=== PATIENT | male | born 1955 | race Caucasian/White ===

== ENCOUNTER 2020-07-22 12:31 | Emergency (ER) | payer OTHER, MEDICARE, SELFPAY ==
[2020-07-22 12:38] VITALS: BP 156/75; PULSE 71; RESP 20; TEMP 36.7; O2SAT 100
--- NOTE | 2020-07-22 12:38 | ED.GENADULT ---
HPI - General Adult General Chief complaint: Abdominal Pain Stated complaint: pressure/burning in stomach/bloating Source: patient and RN notes reviewed Limitations: no limitations History of Present Illness HPI narrative: The obese patient--a non-smoker/rare drinker, with history of several meds--presents with epigastric pain. Patient has a couple day recurrence, of couple year history, of epigastric discomfort. Patient states he has a history of GERD, HTN, HLD, AODM, DJD and no CAD. This is based upon prior EGD, normal past [place]ies[place], normal GB ultrasound (2015), and a 'good'stress test years (2010). He states he is compliant on Pepcid, omeprazole, and routine Naprosyn [for cervical DJD]. He complains of hours-long episodes of epigastric burning , gassy discomfort --that radiates up and down, slightly worse positionally when supine, like prior heartburn, and unrelated to exertion. No fever, known pancreatic/GB disease, V/D/dehydration, manager universal/darker stool changes, precordial CP [it's all midline], cough, radiation, S OB. Patient advised to suspend NSAID's, go to the hospital -which he declines. Related Data Home Medications Medication Instructions Recorded Confirmed calcium carbonate 600 mg calcium 600 mg PO DAILY 07/19/19 07/22/20 (1,500 mg) tablet ginseng 100 mg capsule 100 mg PO DAILY 07/19/19 07/22/20 ipratropium bromide 0.03 % nasal 2 spray NASAL BID 07/19/19 07/22/20 spray krill 1,000 mg-omega-3 170 mg-dha 1 cap PO DAILY cap 07/19/19 07/22/20 50 mg-epa 80 em-[id number]-lpals capsule montelukast 10 mg tablet 10 mg PO DAILY 07/19/19 07/22/20 saw palmetto 160 mg capsule 160 mg PO DAILY cap 07/19/19 07/22/20 omeprazole 20 mg capsule,delayed 40 mg PO DAILY cap 07/20/19 07/22/20 release naproxen sodium 220 mg capsule 220 mg PO DAILY PRN cap 01/31/20 07/22/20 amlodipine 5 mg PO DAILY 07/22/20 07/22/20 atorvastatin 20 mg PO DAILY 07/22/20 07/22/20 famotidine 20 mg PO DAILY 07/22/20 07/22/20 Allergies Allergy/AdvReac Type Severity Reaction Status Date / Time Penicillins Allergy Unknown Unknown Verified 07/22/20 13:28 Review of Systems Review of Systems: Narrative: General/Constitutional: No weight loss,fever Eyes: N0: Redness,discharge Ears/Nose/Throat: No: Epistaxis,ear discharge Respiratory: Denies: Hemoptysis Gastrointestinal: No Vomiting, Bleeding-rectal Skin: No Lumps, eruption Neurologic: No Focal Weakness,Sz Hematologic: Denies: Petechiae/Purpura Psychiatric: No: Suicida ideationl All Other Systems: Reviewed and Negative [facility] Family History Family History (Updated 12/08/18 @ 15:31 by DOCTOR UNKNOWN) Sibling Family history of suicide, Onset Age: 25 Patient's brother is Father Cerebrovascular accident Patient's father is Mother Family history of chronic obstructive pulmonary disease Patient's mother is Other Diabetes mellitus Family history of arthritis Family history of cardiovascular disease Hypertension Social History Social History Smoking status: Never smoker Alcohol intake: current Comments At time of signature, agree with nursing past medical, surgical, social and family history. There is no relevant family history pertinent to the presenting complaint Exam Narrative: Exam Narrative: General Appearance: obese/ Well appearing, Conjunctiva clear Nose: Normal nose Mouth/Throat: Normal appearing, Normal lips Supple Respiratory: Airway patent, No respiratory distress Cardiovascular: RRR Abdomen: Soft, Non-tender, No massess, No organomegaly (no rebound/ surgical signs), nl sounds Musculoskeletal: Full ROM Skin: Warm, Dry Neurological: A&O x3, Normal affect Course Course Emergency Course: EKG:Normal sinus rhythm at rate 70, LAD -60 degrees , normal QTC 0.419, normal PA interval, nonspecific ST-T changes Vital Signs Vital signs: Vital Signs Temperature 98.1 F 07/22/20 12:38 Pulse
--- NOTE | 2020-07-22 13:10 | ECG_ITS ---
Measurements Intervals [place] Rate: 71 P: 51 [place]: 170 QRS: -58 QRSD: 108 T: 57 QT: 396 QTc: 433 Interpretive Statements SINUS RHYTHM LEFT AXIS DEVIATION INCOMPLETE RIGHT BUNDLE BRANCH BLOCK DELAYED PRECORDIAL R/S TRANSITION BORDERLINE ECG Electronically Signed On 07-22-2020 14:11:49 COMMUNICATION MANAGER by Kyler Cuellar D.O.
== END 2020-07-22 13:42 | disposition home or self-care (01) ==
PROVIDERS: Emergency Provider Emergency Medicine; PCP Internal Medicine
DX: R10.13 Epigastric pain (principal); K21.9 Gastro-esophageal reflux disease without esophagitis; I10 Essential (primary) hypertension; E78.5 Hyperlipidemia, unspecified; I45.10 Unspecified right bundle-branch block; M47.812 Spondylosis without myelopathy or radiculopathy, cervical region
CPT/HCPCS: 93005; 99213; G0463

== ENCOUNTER 2020-08-06 10:02 | Outpatient (CLI) | payer OTHER, SELFPAY ==
--- NOTE | ~2020-08-06 | XR_ITS ---
EXAMINATION: XR chest 2V EXAM DATE: 08/06/2020 10:16 INDICATION: R94.31 - Abnormal electrocardiogram. TECHNIQUE: Frontal and lateral projections of the chest obtained and reviewed. Comparison is made to prior examination from 06/01/2017. FINDINGS: The lungs are clear. There are no pleural effusions. The cardiomediastinal silhouette is within normal limits. There is no pneumothorax suspected. The bones and soft tissues are unremarkab le. IMPRESSION: No acute cardiopulmonary findings. Reviewed, dictated and finalized at location B. CHLORIDE OPERATOR
== END 2020-08-06 10:03 | disposition home or self-care (01) ==
PROVIDERS: PCP Internal Medicine; Visit Provider Internal Medicine
DX: R94.31 Abnormal electrocardiogram [ECG] [EKG] (principal)
CPT/HCPCS: 71046

== ENCOUNTER 2020-08-13 09:04 | Outpatient (CLI) | payer OTHER, MEDICARE, SELFPAY ==
--- NOTE | ~2020-08-13 | US_ITS ---
EXAMINATION: US abdomen complete EXAM DATE: 08/13/2020 10:36 INDICATION: Right upper quadrant pain. TECHNIQUE: Multiple grayscale and Doppler images of the complete abdomen were obtained (by a technolo gist who performed the scan) and subsequently reviewed. Comparison is made to prior examination from 05/07/2016. FINDINGS: The abdominal aorta is normal in caliber. Visualized portion IVC is patent. The pancreatic head a nd body are normal in appearance. The pancreatic tail is not visualized. Mildly echogenic liver parenchyma, hepatic steatosis. There are no focal liver lesions identified. There is no evidence of intrahepatic biliary duct dilation. Portal venous flow was seen in the hepa topedal, normal direction and has normal Doppler waveform. Common bile duct measures 2 mm, which is normal. The gallbladder wall is normal in thickness, with ex pected amount of distention. No sonographic evidence of pericholecystic fluid. There is no cholelit hiases. Technologist performing exam reports patient did not demonstrate sonographic Mata's sign. Please note that this sign is less reliable in patients who have received pain medication. Right kidney: There is normal contour and echogenicity. It measures 11.9 x 5.5 x 5.7 centimeters. There are no focal renal lesions identified. There is no hydronephrosis. Left kidney: There is normal contour and echogenicity. It measures 11.9 x 4.7 x 6.4 centimeters. T here are no focal renal lesions identified. There is no hydronephrosis. The spleen measures 11.5 centimeters and is morphologically normal. IMPRESSION: 1. Hepatic steatosis. Reviewed, dictated and finalized at location B. UER MAKER IMPRESSION: 1. Hepatic steatosis.
== END 2020-08-13 09:05 | disposition home or self-care (01) ==
PROVIDERS: PCP Internal Medicine; Visit Provider Internal Medicine
DX: R10.11 Right upper quadrant pain (principal); K76.0 Fatty (change of) liver, not elsewhere classified
CPT/HCPCS: 76700

== ENCOUNTER 2020-09-16 13:51 | Outpatient (CLI) | payer OTHER, MEDICARE, SELFPAY ==
--- NOTE | 2020-09-17 13:31 | WPDPFTINT ---
PFT Interpretation This is a pulmonary function test with pre and post-bronchodilator spirometry, plethysmography and diffusing capacity. The test was performed and results interpreted in accordance with the 2019 and 2005 ATS/ERS Task Force guidelines respectively using the Hemal/George reference equations. Findings: Spirometry: The contour of the inspiratory and expiratory flow tracing are normal. The pre bronchodilator FVC is 4.17 L, 80% predicted. The pre bronchodilator FEV1 is 3.26 L, 92% predicted. The FEV1: FVC ratio 78%. The post bronchodilator FVC is 4.36 L, representing a 4% increase. The post bronchodilator FEV1 is 3.41 L, representing a 5% increase. Plethysmography the total lung capacity is 8.84 L, 114% predicted. Functional residual capacity is 4.72 L, 123% predicted. The residual volume is 4.09 L, 146% predicted. Diffusing capacity the absolute diffusion capacity is 21.0, 69% predicted. The diffusing capacity corrected for alveolar volume is 4.67, 126% predicted. Impression: The spirometry is normal without evidence of an obstructive abnormality. There is no significant improvement after inhaling a single dose of albuterol. The functional residual capacity and residual volume are increased with a normal total lung capacity. This is an abnormal but nonspecific lung volume pattern. The absolute diffusing capacity is mildly decreased but is elevated when corrected for alveolar volume. There are no prior studies for comparison
== END 2020-09-16 13:52 | disposition home or self-care (01) ==
PROVIDERS: PCP Internal Medicine; Visit Provider Internal Medicine
DX: R94.31 Abnormal electrocardiogram [ECG] [EKG] (principal)
CPT/HCPCS: 94060; 94726; 94729

== ENCOUNTER 2021-04-02 15:38 | Emergency (ER) | payer OTHER, SELFPAY ==
[2021-04-02 15:44] VITALS: BP 173/91; PULSE 85; RESP 16; TEMP 36.6; O2SAT 97
--- NOTE | 2021-04-02 15:49 | ED.BACK ---
HPI - Back Pain/Injury General Chief Complaint: Back Pain/Injury Stated Complaint: BACK PAIN/LEG PAIN Time Seen by Provider: 04/02/21 15:49 Source: patient and RN notes reviewed Mode of arrival: ambulatory Limitations: no limitations History of Present Illness HPI Narrative: 65-year-old male presents to the [facility] with complaints of lower back pain radiating into his legs for over 1 week. States he has taken 1 naproxen in the last week to try to help with the pain. States when he got up this morning the pain was so bad that he had trouble standing and when he was able to stand had to sit right back down on his bed. Denies any trauma. No pushing pulling or heavy lifting recently. Denies any abdominal pain or chest pain. No loss or retention of bowel or bladder. States he has had chronic medical issues and has Skelaxin at home however has not taken anything for his back pain. Related Data Home Medications Medication Instructions Recorded Confirmed calcium carbonate 600 mg calcium 600 mg PO DAILY 07/19/19 02/28/21 (1,500 mg) tablet ipratropium bromide 21 mcg (0.03 2 spray NASAL BID 07/19/19 02/28/21 %) nasal spray krill 1,000 mg-omega-3 170 mg-dha 1 cap PO DAILY cap 07/19/19 02/28/21 50 mg-epa 80 mb-xrcwxe-ataon capsule montelukast 10 mg tablet 10 mg PO DAILY 07/19/19 02/28/21 saw palmetto 160 mg capsule 160 mg PO DAILY cap 07/19/19 02/28/21 omeprazole 20 mg capsule,delayed 40 mg PO DAILY cap 07/20/19 02/28/21 release naproxen sodium 220 mg capsule 220 mg PO DAILY PRN cap 01/31/20 02/28/21 famotidine 20 mg PO DAILY 07/22/20 02/28/21 Allergies Allergy/AdvReac Type Severity Reaction Status Date / Time Penicillins Allergy Mild pt does Verified 02/28/21 15:01 not recall Review of Systems Review of Systems: All systems reviewed & are unremarkable except as noted in HPI and below Constitutional: Constitutional: Reports no additional constitutional complaints, Denies chills and Denies fever(s) ENT: Reports system reviewed and no additional complaints, except as documented Cardiovascular: Cardiovascular: Reports no additional cardiovascular complaints Respiratory: Respiratory: Reports no additional respiratory complaints Gastrointestinal: Gastrointestinal: Reports no additional gastrointestinal complaints, Denies abdominal pain, Denies diarrhea, Denies nausea and Denies vomiting Genitourinary: Genitourinary: Reports no additional male genitourinary complaints and Denies urinary incontinence Musculoskeletal: Musculoskeletal: Reports as per HPI and Reports back pain (Lumbar) Integumentary/Breasts: Skin/Breast: Reports system reviewed and no additional complaints, except as docu Neurologic: Reports system reviewed and no additional complaints, except as documented, Denies headache(s), Denies focal weakness, Denies numbness and Denies weakness Psychiatric: Psychiatric: Reports no additional psychiatric complaints Allergic/Immunologic: Allergic/Immunologic: Reports no additional allergic/immunologic complaints [facility] Past Medical History Medical History (Updated 04/02/21 @ 19:45 by Salome Olvera) Benign essential hypertension Gastro-esophageal reflux disease without esophagitis History of prediabetes Mixed hyperlipidemia Family History Family History Sibling Family history of suicide, Onset Age: 25 Patient's brother is Father Cerebrovascular accident Patient's father is Mother Family history of chronic obstructive pulmonary disease Patient's mother is Other Diabetes mellitus Family history of arthritis Family history of cardiovascular disease Hypertension Social History Social History Smoking status: Never smoker Second hand tobacco smoke exposure: Yes Alcohol intake: current Alcohol use details: Social Commen
== END 2021-04-02 16:07 | disposition home or self-care (01) ==
PROVIDERS: Emergency Provider Nurse Practitioner; PCP Internal Medicine
DX: I10 Essential (primary) hypertension (principal); K21.9 Gastro-esophageal reflux disease without esophagitis; R73.03 Prediabetes; E78.2 Mixed hyperlipidemia
CPT/HCPCS: 99213; G0463

== ENCOUNTER 2021-04-28 00:57 | Day surgery (SDC) | payer OTHER, SELFPAY ==
[2021-04-18 13:47] VITALS: BMI 34.9
--- NOTE | 2021-04-25 14:58 | PM.HPGS ---
History of Present Illness History of Present Illness Consent: Risks, benefits, and alternatives have been discussed and questions answered. Patient agrees to proceed with procedure. Chief complaint: hx of colon polyps Narrative: Osvaldo Zimmerman is a 65 year old male referred for colon cancer screening Review of Systems Review of Systems: All systems reviewed & are unremarkable except as noted in HPI and below PMFSH Past Medical History Medical History Benign essential hypertension Diabetes Gastro-esophageal reflux disease without esophagitis History of prediabetes Mixed hyperlipidemia Numbness in both hands Obesity MARCELLA on CPAP Family History Family History Sibling Family history of suicide, Onset Age: 25 Patient's brother is Father Cerebrovascular accident Patient's father is Mother Family history of chronic obstructive pulmonary disease Patient's mother is Other Diabetes mellitus Family history of arthritis Family history of cardiovascular disease Hypertension Social History Social History Smoking status: Never smoker Second hand tobacco smoke exposure: Yes Alcohol intake: never Alcohol use details: Social Substance use: never Substance use type: does not use Living arrangements: with family Spiritual care concerns: No Meds Home Medications and Allergies Home Medications Medication Instructions Recorded Confirmed Type calcium carbonate 600 mg calcium 600 mg PO DAILY 07/19/19 04/18/21 History (1,500 mg) tablet ipratropium bromide 21 mcg (0.03 2 spray NASAL BID 07/19/19 04/18/21 History %) nasal spray krill 1,000 mg-omega-3 170 mg-dha 1 cap PO DAILY cap 07/19/19 04/18/21 History 50 mg-epa 80 dm-phgxug-tofdy capsule montelukast 10 mg tablet 10 mg PO DAILY 07/19/19 04/18/21 History saw palmetto 160 mg capsule 160 mg PO DAILY cap 07/19/19 04/18/21 History omeprazole 20 mg capsule,delayed 40 mg PO DAILY cap 07/20/19 04/18/21 History release naproxen sodium 220 mg capsule 220 mg PO DAILY cap 01/31/20 04/18/21 History famotidine 20 mg PO DAILY 07/22/20 04/18/21 History metformin 500 mg tablet 500 mg PO DAILY #90 tablet 12/17/20 04/18/21 Rx atorvastatin 20 mg tablet See Rx Instructions .ROUTE 01/20/21 04/18/21 Rx .COMPLEX #90 tablet amlodipine 5 mg tablet See Rx Instructions .ROUTE 02/24/21 04/18/21 Rx .COMPLEX #14 tablet fluticasone propionate 50 2 spray INTRANASAL DAILY #16 g 02/28/21 04/18/21 Rx mcg/actuation nasal spray,suspension fexofenadine 180 mg PO DAILY 04/18/21 04/18/21 History metaxalone See Rx Instructions .ROUTE 04/18/21 04/18/21 History .COMPLEX PRN Allergies Allergy/AdvReac Type Severity Reaction Status Date / Time Penicillins Allergy Mild pt does Verified 04/28/21 09:06 not recall Exam Resp: Auscultation: clear to auscultation bilaterally Cardio: Rate: regular rate Rhythm: regular rhythm GI: GI Palp: Yes Soft to palpation and No Tenderness to palpation present (GI) Assessment and Plan Assessment and plan (1) Colon cancer screening: Code(s): Z12.11 - Encounter for screening for malignant neoplasm of colon Status: Acute Assessment and Plan: Colonoscopy with possible biopsy or polypectomy or cautery or injection of substances.
--- NOTE | 2021-04-28 07:41 | WPDANESEPPF ---
Anes - Initial Pre Proc Eval Procedure: Operation Date: 04/28/21 09:30 Proposed Procedures p Screening Colonoscopy - Reji Adam MD Date/Time: 04/28/21 07:41 Surgeon: Reji Adam MD Pre Op Diagnosis: hx of colon polyps Patient Data Age: 65 Gender: M Height: 1.91 m Weight: 127 kg Allergies Allergy/AdvReac Type Severity Reaction Status Date / Time Penicillins Allergy Mild pt does Verified 04/28/21 08:46 not recall Home Medications Medication Instructions Recorded Confirmed Type calcium carbonate 600 mg calcium 600 mg PO DAILY 07/19/19 04/18/21 History (1,500 mg) tablet ipratropium bromide 21 mcg (0.03 2 spray NASAL BID 07/19/19 04/18/21 History %) nasal spray krill 1,000 mg-omega-3 170 mg-dha 1 cap PO DAILY cap 07/19/19 04/18/21 History 50 mg-epa 80 zs-tmdnyj-icbuz capsule montelukast 10 mg tablet 10 mg PO DAILY 07/19/19 04/18/21 History saw palmetto 160 mg capsule 160 mg PO DAILY cap 07/19/19 04/18/21 History omeprazole 20 mg capsule,delayed 40 mg PO DAILY cap 07/20/19 04/18/21 History release naproxen sodium 220 mg capsule 220 mg PO DAILY cap 01/31/20 04/18/21 History famotidine 20 mg PO DAILY 07/22/20 04/18/21 History metformin 500 mg tablet 500 mg PO DAILY #90 tablet 12/17/20 04/18/21 Rx atorvastatin 20 mg tablet See Rx Instructions .ROUTE 01/20/21 04/18/21 Rx .COMPLEX #90 tablet amlodipine 5 mg tablet See Rx Instructions .ROUTE 02/24/21 04/18/21 Rx .COMPLEX #14 tablet fluticasone propionate 50 2 spray INTRANASAL DAILY #16 g 02/28/21 04/18/21 Rx mcg/actuation nasal spray,suspension fexofenadine 180 mg PO DAILY 04/18/21 04/18/21 History metaxalone See Rx Instructions .ROUTE 04/18/21 04/18/21 History .COMPLEX PRN Patient hx anesthesia problems: none Family hx anesthesia problems: none PMFSH Past Medical History Medical History (Updated 04/28/21 @ 07:42 by Carlo Berumen MD) Benign essential hypertension Diabetes Gastro-esophageal reflux disease without esophagitis History of prediabetes Mixed hyperlipidemia Numbness in both hands Obesity MARCELLA on CPAP Family History Family History Sibling Family history of suicide, Onset Age: 25 Patient's brother is Father Cerebrovascular accident Patient's father is Mother Family history of chronic obstructive pulmonary disease Patient's mother is Other Diabetes mellitus Family history of arthritis Family history of cardiovascular disease Hypertension Social History Social History Smoking status: Never smoker Second hand tobacco smoke exposure: Yes Alcohol intake: never Alcohol use details: Social Substance use: never Substance use type: does not use Living arrangements: with family Spiritual care concerns: No Anes - Eval Final PreProcedure Day of Procedure 04/28/21 07:41 Patient weight: obese Heart: regular rate and rhythm Lungs: clear to auscultation and normal air movement Airway: Mallampati scale class II Neurological: alert and oriented Last oral intake: >/= 8 hours ASA classification: III Emergent: no Anesthetic plan: proceed Anesthesia type and monitoring: general GIVS Informed Consent: The patient's anesthetic plan and its attendant risks and benefits were discussed with the patient/family/POA. Questions were solicited and answers provided to the satisfaction of the patient/family/POA.
[2021-04-28 08:49] VITALS: BP 123/80; PULSE 72; RESP 18; TEMP 36.3; O2SAT 98; BMI 33.9
[2021-04-28] MEDS: LACTATED RINGERS 1,000 ML 150 ML IV CONT (08:54)
[2021-04-28 09:03] LABS: Glucose Point of Care 141 mg/dl (65-105)
[2021-04-28 09:37] VITALS: BP 100/63; PULSE 67; RESP 20; O2SAT 97
[2021-04-28 09:47] VITALS: BP 94/66; PULSE 62; RESP 18; O2SAT 99
[2021-04-28 09:57] VITALS: BP 129/79; PULSE 56; RESP 20; O2SAT 99
== END 2021-04-28 10:06 | disposition home or self-care (01) ==
PROVIDERS: PCP Internal Medicine; Visit Provider Internal Medicine Gastroenterology
PROC: 0DJD8ZZ Inspection of Lower Intestinal Tract, Via Natural or Artificial Opening Endoscopic (ICD-10-PCS; CPT 45378; principal; 2021-04-28 09:30)
DX: Z12.11 Encounter for screening for malignant neoplasm of colon (principal); Z86.010 Personal history of colon polyps; K63.5 Polyp of colon; Z79.84 Long term (current) use of oral hypoglycemic drugs; I10 Essential (primary) hypertension; E11.9 Type 2 diabetes mellitus without complications; E78.2 Mixed hyperlipidemia; G47.33 Obstructive sleep apnea (adult) (pediatric); K21.9 Gastro-esophageal reflux disease without esophagitis; E66.9 Obesity, unspecified; Z68.33 Body mass index [BMI] 33.0-33.9, adult
CPT/HCPCS: 45380; 82948; 88305; J2704; J7120

== ENCOUNTER 2021-05-20 09:40 | Outpatient (CLI) | payer OTHER, SELFPAY ==
--- NOTE | ~2021-05-20 | XR_ITS ---
XR lumbar spine 2-3V DATE: 05/20/2021 10:01 INDICATION: Low back pain TECHNIQUE: AP, lateral views COMPARISON: 06/17/2006 MRI lumbar spine 03/03/2004 lumbar spine FINDINGS: There is interval degenerative change since 03/03/2004, including moderate degenerative disc disease at L1-2, L2-3, L3-4. There is mild degenerative disc disease at L4-5 and L5-S1. The lumbar pedicles are intact. No fracture or bone destruction or spondylolisthesis. The sacroiliac joints are intact. IMPRESSION: Multilevel degenerative disc disease Reviewed, dictated and finalized at location A.
== END 2021-05-20 09:41 | disposition home or self-care (01) ==
PROVIDERS: PCP Internal Medicine; Visit Provider Nurse Practitioner
DX: M47.817 Spondylosis without myelopathy or radiculopathy, lumbosacral region (principal)
CPT/HCPCS: 72100

== ENCOUNTER → 2021-08-29 09:17 | Outpatient (CLI) | payer OTHER, SELFPAY ==
[2021-08-30 18:18] LABS: SARS-CoV-2 RNA PCR Negative
== END ==
PROVIDERS: PCP Internal Medicine; Visit Provider Internal Medicine
DX: R09.89 Other specified symptoms and signs involving the circulatory and respiratory systems (principal); Z20.822 Contact with and (suspected) exposure to COVID-19
CPT/HCPCS: C9803; U0003; U0005

== ENCOUNTER 2021-09-09 07:22 | Outpatient (CLI) | payer OTHER, SELFPAY ==
--- NOTE | ~2021-09-09 | US_ITS ---
EXAMINATION: US abdomen limited EXAM DATE: 09/09/2021 08:21 INDICATION: R79.89 - Other specified abnormal findings of blood chemi... Abnormal labs. TECHNIQUE: Multiple grayscale and Doppler images of the abdomen right upper quadrant were obtained (b y a technologist who performed the scan) and subsequently reviewed. Comparison is made to prior exami nation from 08/13/2020. FINDINGS: The pancreatic head and body are normal in appearance. The pancreatic tail is not visualized. There is echogenic liver parenchyma, hepatic steatosis. There are no focal liver lesions identified. Th ere is no evidence of intrahepatic biliary duct dilation. Portal venous flow was seen in the hepatop edal, normal direction and has normal Doppler waveform. No right-sided hydronephrosis. Common bile duct measures 3 mm, which is normal. The gallbladder wall is normal in thickness, with mo derate amount of distention. No sonographic evidence of pericholecystic fluid. Some hyperechoic mobi le debris without discrete cholelithiasis. Technologist performing exam reports patient did not demon strate sonographic Mata's sign. Please note that this sign is less reliable in patients who have r eceived pain medication. IMPRESSION: 1. Small amount of gallbladder debris. 2. Hepatic steatosis. Reviewed, dictated and finalized at location A. PACKER
== END 2021-09-09 07:23 | disposition home or self-care (01) ==
PROVIDERS: PCP Internal Medicine; Visit Provider Internal Medicine
DX: R79.89 Other specified abnormal findings of blood chemistry (principal); K76.0 Fatty (change of) liver, not elsewhere classified
CPT/HCPCS: 76705

== ENCOUNTER 2021-10-13 00:49 | Emergency (ER) | payer OTHER, SELFPAY ==
[2021-10-13] VITALS (17 sets, daily range): BP systolic 114–178; BP diastolic 72–86; PULSE 74–88; RESP 13–30; TEMP 36; O2SAT 96–100
--- NOTE | ~2021-10-13 | XR_ITS ---
EXAMINATION: XR chest 2V 10/13/2021 01:35 INDICATION: Left chest pain PROCEDURE: 2 view chest COMPARISON: 08/06/2020 FINDINGS: The lungs are clear. The cardiomediastinal silhouette is within normal limits. There are no pleural effusions. There is no pneumothorax suspected. IMPRESSION: 1: NO ACUTE CARDIOPULMONARY DISEASE. Reviewed, dictated and finalized at location A. ENSING LEAD
--- NOTE | ~2021-10-13 | CT_ITS ---
EXAMINATION: CT abdomen pelvis w con DATE: 10/13/2021 02:13 INDICATION: Left upper abdominal pain TECHNIQUE: Computed tomography (CT) of the abdomen and pelvis was performed without intravenous contr ast. The dose-length product was 1530.88 mGy-cm. Automated exposure control and iterative reconstruct ion technique were employed. COMPARISON: None. FINDINGS: Lung bases are unremarkable. Heart size normal. No significant pleural or pericardial effus ion. No significant vascular abnormality. No lymphadenopathy. Gallbladder is prominent with possible pericholecystic fluid. The liver, spleen, pancreas, adrenal glands and kidneys are unremarkable. Nonobstructive bowel gas pa ttern. Small fat-containing umbilical hernia. Colonic diverticulosis without evidence for diverticuli tis. No free air or free fluid. Mild lumbar spondylosis. IMPRESSION: 1. Mildly prominent gallbladder with suggestion of pericholecystic fluid/stranding. Consider cholecys titis in the appropriate setting. Consider correlation with nuclear hepatobiliary scan. Reviewed, dictated and finalized at location A. NG HAULER IMPRESSION: 1. Mildly prominent gallbladder with suggestion of pericholecystic fluid/strand ing. Consider cholecystitis in the appropriate setting. Consider correlation wi nuclear hepatobiliary scan.
--- NOTE | 2021-10-13 01:13 | ECG_ITS ---
Measurements Intervals [place] Rate: 85 P: 23 [place]: 124 QRS: -28 QRSD: 98 T: 60 QT: 391 QTc: 466 Interpretive Statements SINUS RHYTHM CANNOT RULE OUT SEPTAL INFARCT, AGE INDETERMINATE ABNORMAL ECG Electronically Signed On 10-13-2021 6:27:10 HAND WELT BUTTER by Kyler Cuellar D.O.
--- NOTE | 2021-10-13 01:15 | ED.GENADULT ---
HPI - General Adult General Chief complaint: Chest Pain Stated complaint: Chest pain Time Seen by Provider: 10/13/21 00:51 Source: patient Mode of arrival: ambulatory Limitations: no limitations History of Present Illness HPI narrative: This is a 66 year old male with history of hypertension and diabetes mellitus who presents for evaluation of left flank pain . He states he was about to get ready for bed when he developed left flank pain. He states this pain radiates to his epigastric and it has been constant. He has tried tums, metaxalone, and peptobismal without any improvement in his pain. He states his pain seems to worsen with laying on his left side. He reports mild sob but denies nausea, vomiting or fever. He also denies hematuria or history of kidney stone. He rates pain as 8/10. He states he had similar pain several weeks ago, and he reports liver problems. Related Data Home Medications Medication Instructions Recorded Confirmed calcium carbonate 600 mg calcium 600 mg PO DAILY 07/19/19 09/05/21 (1,500 mg) tablet ipratropium bromide 21 mcg (0.03 2 spray NASAL BID 07/19/19 09/05/21 %) nasal spray krill 1,000 mg-omega-3 170 mg-dha 1 cap PO DAILY cap 07/19/19 09/05/21 50 mg-epa 80 ps-hjpqgt-jlbri capsule montelukast 10 mg tablet 10 mg PO DAILY 07/19/19 09/05/21 saw palmetto 160 mg capsule 160 mg PO DAILY cap 07/19/19 09/05/21 omeprazole 20 mg capsule,delayed 40 mg PO DAILY cap 07/20/19 09/05/21 release naproxen sodium 220 mg capsule 220 mg PO DAILY cap 01/31/20 09/05/21 famotidine 20 mg PO DAILY 07/22/20 09/05/21 fexofenadine 180 mg PO DAILY 04/18/21 09/05/21 metaxalone See Rx Instructions .ROUTE 04/18/21 09/05/21 .COMPLEX PRN Allergies Allergy/AdvReac Type Severity Reaction Status Date / Time Penicillins Allergy Mild pt does Verified 09/05/21 13:43 not recall Review of Systems Review of Systems: All systems reviewed & are unremarkable except as noted in HPI and below Constitutional: Constitutional: Denies chills and Denies fever(s) Cardiovascular: Cardiovascular: Denies rapid heart rate and Denies radiating jaw, neck or arm pain Respiratory: Respiratory: Denies cough and Reports dyspnea Gastrointestinal: Gastrointestinal: Reports abdominal pain, Denies diarrhea, Reports nausea and Reports vomiting Musculoskeletal: Musculoskeletal: Reports back pain Psychiatric: Psychiatric: Denies anxiety [facility] Past Medical History Medical History Benign essential hypertension Diabetes Gastro-esophageal reflux disease without esophagitis History of prediabetes Mixed hyperlipidemia Numbness in both hands Obesity MARCELLA on CPAP Family History Family History Sibling Family history of suicide, Onset Age: 25 Patient's brother is Father Cerebrovascular accident Patient's father is Mother Family history of chronic obstructive pulmonary disease Patient's mother is Other Diabetes mellitus Family history of arthritis Family history of cardiovascular disease Hypertension Social History Social History Smoking status: Never smoker Second hand tobacco smoke exposure: Yes (when he was younger) Alcohol intake: current Alcohol use details: Social Substance use: never Substance use type: does not use Spiritual care concerns: No Exam Const: General: no acute distress and alert Orientation/consciousness: patient oriented x3 Eyes: EOM: EOMs intact bilaterally Resp: Effort & Inspection: normal respiratory effort, no retractions and no use of accessory muscles Auscultation: clear to auscultation bilaterally Cardio: Rate: regular rate Rhythm: regular rhythm Heart sounds: no murmurs GI: GI Palp: Yes Soft to palpation, Yes Tenderness to palpation
[2021-10-13] MEDS: PANTOPRAZOLE SODIUM IV 40 MG VIAL IV PUSH (01:19)
[2021-10-13 01:23] LABS: Basophils Percent Auto 0.4 % (0.2-1.2); Eosinophils Absolute Auto 0.2 K/mm3 (0-0.3); Eosinophils Percent Auto 2.4 % (0-4.4); Hematocrit 41.8 % (42.0-52.0); Hemoglobin 14.4 g/dL (14.0-18.0); Immature Granulocyte Absolute 0.02 K/mm3 (0.00-0.031); Immature Granulocyte Percent A 0.2 % (0-0.5); Lymphocytes Absolute Auto 3.83 K/mm3 (0.9-3.2); Lymphocytes Percent Auto 38.6 % (18.3-44.2); Mean Corpuscular HGB Conc 34.4 g/dl (32-36); Mean Corpuscular Hemoglobin 33.3 pg (26-34); Mean Corpuscular Volume 96.8 fl (80-100); Mean Platelet Volume 10.4 fl (7.4-10.4); Monocytes Absolute Auto 0.7 K/mm3 (0.1-0.6); Monocytes Percent Auto 6.7 % (2.6-8.5); Neutrophils Absolute Auto 5.1 K/mm3 (1.3-6.7); Neutrophils Percent Auto 51.7 % (45.5-73.1); Platelet Count Result 154 k/mm3 (150-375); Red Blood Count 4.32 M/mm3 (4.6-6.20); Red Cell Distribution Width 12.5 % (11.5-14.5); White Blood Count 9.9 K/mm3 (4.5-10.0)
[2021-10-13 01:33] LABS: Alanine Aminotransferase 121 U/L (4-50); Albumin Level 4.7 g/dL (3.5-5.1); Alkaline Phosphatase 89 U/L (38-126); Anion Gap 10 mmol/L (8-16); Aspartate Amino Transferase 139 U/L (17-59); Bilirubin,Total 1.1 mg/dL (0.2-1.3); Blood Urea Nitrogen 22 mg/dL (9-20); Calcium 9.3 mg/dL (8.4-10.2); Carbon Dioxide 23 mmol/L (22-30); Chloride 106 mmol/L (98-107); Estimated CRCL calculation 100 ml/min; Estimated Glomerular Filt Rate > 60; Glucose 138 mg/dL (65-110); Lipase 87 U/L (23-300); Potassium 3.6 mmol/L (3.4-5.0); Prothrombin Time 12.8 Seconds (11.1-14.7); Sodium 139 mmol/L (137-145)
[2021-10-13 01:44] LABS: Troponin I < 0.012 ng/mL (0.000-0.034)
[2021-10-13 02:32] LABS: Add Urine Microscopic? YES; Appearance Urine Clear (Clear); Bilirubin Urine Negative (Negative); Blood Urine Negative (Negative); Color Urine Yellow (Yellow); Glucose Urine UA Negative (Negative); Ketones Urine Negative (Negative); Leukocyte Esterase Ur Negative LEU/UL (Negative); Mucus Urine Rare /lpf; Nitrate Urine Negative (Negative); Protein Urine Negative (Negative); RBC Urine 0-2 /hpf (0-2); WBC Urine 0-3 /hpf
[2021-10-13 02:40] LABS: Specific Grav Ur 1.054 (1.001-1.035)
[2021-10-13] MEDS: SODIUM CHLORIDE 0.9% IV 1,000 ML 999 ML IV CONT (03:00)
[2021-10-13 04:36] LABS: Troponin I < 0.012 ng/mL (0.000-0.034)
== END 2021-10-13 05:50 | disposition home or self-care (01) ==
PROVIDERS: Emergency Provider General Practice; PCP Internal Medicine
DX: K81.9 Cholecystitis, unspecified (principal); R74.01 Elevation of levels of liver transaminase levels; I10 Essential (primary) hypertension; E11.9 Type 2 diabetes mellitus without complications; K21.9 Gastro-esophageal reflux disease without esophagitis; E78.2 Mixed hyperlipidemia; G47.33 Obstructive sleep apnea (adult) (pediatric); E66.9 Obesity, unspecified; Z68.33 Body mass index [BMI] 33.0-33.9, adult; Z77.22 Contact with and (suspected) exposure to environmental tobacco smoke (acute) (chronic); R94.31 Abnormal electrocardiogram [ECG] [EKG]; Z79.84 Long term (current) use of oral hypoglycemic drugs
CPT/HCPCS: 36415; 71046; 74177; 80053; 81001; 83690; 84484; 85025; 85610; 85730; 93005; 96361; 96365; 96375; 99284; C9113; J0131; J7030; Q9967

== ENCOUNTER 2021-10-29 10:54 | Outpatient (CLI) | payer OTHER, SELFPAY ==
--- NOTE | ~2021-10-29 | NM_ITS ---
EXAMINATION: NM hepatobiliary wo pharm DATE: 10/29/2021 15:27 INDICATION: Upper abdominal pain COMPARISON: CT dated 10/13/2021 TECHNIQUE: 4.9 mCi Tc-99m mebrofenin (Choletec) was administered intravenously. Scintigraphic images of the abdomen were obtained for one hour. At the 1 hour time point, the patient drank 8 oz Ensure, and imaging was continued for 60 minutes. Gallbladder ejection fraction was calculated by the technol ogarnaud. FINDINGS: There is normal clearance of radiotracer from the blood pool. There is homogeneous tracer u ptake by the liver. Activity progresses to the bowel and gallbladder. The gallbladder ejection fract ion (GBEF) is 48%. Note that with this technique, normal GBEF >= 33%. IMPRESSION: 1. Normal hepatobiliary scan. Reviewed, dictated and finalized at location A.
== END 2021-10-29 10:55 | disposition home or self-care (01) ==
LOC: ANHIMG 10:57
PROVIDERS: PCP Internal Medicine; Visit Provider Surgery
DX: R10.10 Upper abdominal pain, unspecified (principal)
CPT/HCPCS: 78226; A9537

== ENCOUNTER 2021-11-03 09:32 | Outpatient (CLI) | payer OTHER, SELFPAY ==
[2021-11-03 10:08] LABS: Alanine Aminotransferase 60 U/L (4-50); Albumin Level 4.4 g/dL (3.5-5.1); Alkaline Phosphatase 72 U/L (38-126); Anion Gap 8 mmol/L (8-16); Aspartate Amino Transferase 35 U/L (17-59); Bilirubin,Total 0.7 mg/dL (0.2-1.3); Blood Urea Nitrogen 18 mg/dL (9-20); Calcium 9.2 mg/dL (8.4-10.2); Carbon Dioxide 24 mmol/L (22-30); Chloride 107 mmol/L (98-107); Estimated Glomerular Filt Rate > 60; Glucose 179 mg/dL (65-110); Potassium 3.9 mmol/L (3.4-5.0); Sodium 139 mmol/L (137-145)
== END 2021-11-03 09:33 | disposition home or self-care (01) ==
LOC: ANHLAB 09:34
PROVIDERS: PCP Internal Medicine; Visit Provider Surgery
DX: R10.10 Upper abdominal pain, unspecified (principal)
CPT/HCPCS: 36415; 80053

== ENCOUNTER 2021-12-04 07:27 | Outpatient (CLI) | payer OTHER, SELFPAY ==
--- NOTE | ~2021-12-04 | NM_ITS ---
EXAM: NM gastric emptying study DATE: 12/04/2021 12:06 INDICATION: Upper abdominal pain TECHNIQUE: A gastric emptying study was performed using the methodology of Filiberto LUCAS, et al. J Nucl Med 2007; 48:568-572. The patient was given a meal consisting of 2 scrambled eggs labeled with 1.0 m Ci Tc-99m sulfur colloid, 2 slices of toast, two packages of jam, and approximately 120 mL of water. Simultaneous anterior and posterior 1-min images of the abdomen were obtained with the patient supine at multiple time points over a total period of 4 hours. The geometric mean of anterior and posterior views was determined, and the percentage retention was calculated for each time point. COMPARISON: None. FINDINGS: Gastric retention of the radiotracer-labeled meal was 62%, 52%, and 3% at the 1-hour, 2-hour, and 4-h our time points, respectively. With this technique, apparent rapid gastric emptying is suggested by < 30% gastric retention at 1 hour. Delayed gastric emptying is defined by gastric retention of >90% at 1 hour, >60% retention at 2 hours, or >10% retention at 4 hours. IMPRESSION: 1. Normal gastric emptying. Reviewed, dictated and finalized at location A. IMPRESSION: 1. Normal gastric emptying.
== END 2021-12-04 07:28 | disposition home or self-care (01) ==
PROVIDERS: PCP Internal Medicine; Visit Provider Surgery
DX: R10.10 Upper abdominal pain, unspecified (principal); K21.9 Gastro-esophageal reflux disease without esophagitis
CPT/HCPCS: 78264; A9541

== ENCOUNTER 2022-05-26 08:33 | Outpatient (CLI) | payer OTHER, MEDICARE, SELFPAY ==
--- NOTE | ~2022-05-26 | US_ITS ---
EXAMINATION: US abdomen limited DATE: 05/26/2022 09:18 INDICATION: Other specified disease of gallbladder TECHNIQUE: Multiple grayscale and Doppler ultrasound images of the abdomen were obtained. COMPARISON: 09/09/2021 FINDINGS: The pancreatic head and body are normal in appearance. The pancreatic tail is not visualized. Visual ized proximal inferior vena cava is normal. Liver has normal echogenicity and contour, with a smooth surface. No liver lesion identified. No intrahepatic biliary duct dilation suspected. Portal venous f low was seen in the hepatopetal, normal direction and has normal Doppler waveform. The gallbladder is normal in appearance. There is no cholelithiasis. The common bile duct measures 5 mm, which is norm al. Sonographic Mata sign was reported as negative by the director of research.Visualized portion of the rig ht kidney demonstrates normal echogenicity and contour with no hydronephrosis. IMPRESSION: 1. Normal right upper quadrant ultrasound Reviewed, dictated and finalized at location B.
== END 2022-05-26 08:34 | disposition home or self-care (01) ==
PROVIDERS: PCP Internal Medicine; Visit Provider Surgery
DX: K82.8 Other specified diseases of gallbladder (principal)
CPT/HCPCS: 76705

== ENCOUNTER 2022-07-27 08:30 | Emergency (ER) | payer OTHER, MEDICARE, SELFPAY ==
[2022-07-27 09:00] VITALS: BP 124/80; PULSE 105; RESP 24; TEMP 36.6; O2SAT 99
--- NOTE | 2022-07-27 09:04 | ED.ABDPAIN ---
HPI - Abdominal Pain General Chief Complaint: Abdominal Pain Stated Complaint: Abdominal Pain, Fever Time Seen by Provider: 07/27/22 09:04 Source: patient, RN notes reviewed and old records reviewed Mode of arrival: ambulatory Limitations: no limitations History of Present Illness HPI narrative: 67-year-old male presents to the [facility] with complaints of epigastric, right upper quadrant pain. History of gallbladder issues for a long time. States he ate yogurt on Wednesday and thinks it might have been bad but states that he has not really been able to eat, drink, sleep due to the pain. Related Data Home Medications Medication Instructions Recorded Confirmed calcium carbonate 600 mg calcium 600 mg PO DAILY 07/19/19 07/27/22 (1,500 mg) tablet (Calcium) ipratropium bromide 21 mcg (0.03 2 spray intranasal BID 07/19/19 07/27/22 %) nasal spray krill 1,000 mg-omega-3 170 mg-dha 1 cap PO DAILY 07/19/19 07/27/22 50 mg-epa 80 ti-cpoaad-[id number] capsule (krill oil) montelukast 10 mg tablet 10 mg PO DAILY 07/19/19 07/27/22 (Singulair) saw palmetto 160 mg capsule 160 mg PO DAILY 07/19/19 07/27/22 omeprazole 20 mg capsule,delayed 40 mg PO DAILY 07/20/19 07/27/22 release naproxen sodium 220 mg capsule 220 mg PO DAILY 01/31/20 07/27/22 famotidine 20 mg tablet 20 mg PO DAILY 07/22/20 07/27/22 fexofenadine 180 mg tablet 180 mg PO DAILY 04/18/21 07/27/22 Allergies Allergy/AdvReac Type Severity Reaction Status Date / Time Penicillins Allergy Mild pt does Verified 07/27/22 09:46 not recall Review of Systems Review of Systems: All systems reviewed & are unremarkable except as noted in HPI and below Constitutional: Constitutional: Reports no additional constitutional complaints Eyes: Eyes: Reports no additional eye complaints ENT: Reports system reviewed and no additional complaints, except as documented Cardiovascular: Cardiovascular: Reports no additional cardiovascular complaints, Denies chest pain and Denies dyspnea Respiratory: Respiratory: Reports no additional respiratory complaints, Denies chest congestion, Denies cough and Denies dyspnea Gastrointestinal: Gastrointestinal: Reports as per HPI, Reports abdominal pain, Reports bloating, Reports nausea and Denies vomiting Musculoskeletal: Musculoskeletal: Reports no additional musculoskeletal complaints Integumentary/Breasts: Skin/Breast: Reports system reviewed and no additional complaints, except as docu Neurologic: Reports system reviewed and no additional complaints, except as documented Psychiatric: Psychiatric: Reports no additional psychiatric complaints Allergic/Immunologic: Allergic/Immunologic: Reports no additional allergic/immunologic complaints PMFSH Past Medical History Medical History Benign essential hypertension Diabetes Gastro-esophageal reflux disease without esophagitis History of prediabetes Mixed hyperlipidemia Numbness in both hands Obesity MARCELLA on CPAP Family History Family History Sibling Family history of suicide, Onset Age: 25 Patient's brother is Father Cerebrovascular accident Patient's father is Mother Family history of chronic obstructive pulmonary disease Patient's mother is Other Diabetes mellitus Family history of arthritis Family history of cardiovascular disease Hypertension Social History Social History Smoking status: Never smoker Second hand tobacco smoke exposure: Yes (when he was younger) Alcohol intake: current Alcohol use details: Social Substance use: never Substance use type: does not use Spiritual care concerns: No Comments At the time of my signature, I reviewed and agree with the nursing past medical, surgical, social, and family history. There is no re
== END 2022-07-27 09:12 | disposition short-term general hospital (02) ==
PROVIDERS: Emergency Provider Nurse Practitioner; PCP Internal Medicine
DX: R10.13 Epigastric pain (principal); R10.11 Right upper quadrant pain; E11.9 Type 2 diabetes mellitus without complications; E78.2 Mixed hyperlipidemia; I10 Essential (primary) hypertension; Z79.1 Long term (current) use of non-steroidal anti-inflammatories (NSAID)
CPT/HCPCS: 99212; G0463

== ENCOUNTER 2022-07-27 09:29 | Inpatient (IN) | payer OTHER, MEDICARE, SELFPAY ==
--- NOTE | ~2022-07-27 | XR_ITS ---
EXAMINATION: XR ERCP DATE: 07/30/2022 15:42 INDICATION: Gallstones TECHNIQUE: 4 spot fluoroscopic images of the right upper quadrant were obtained during endoscopic ret rograde cholangiopancreatography (ERCP) performed by Dr. Adam. Radiologist was not present for the i maging or procedure. The amount of fluoroscopy time used during this procedure was 9.0 minutes. COMPARISON: 07/28/2022 FINDINGS: Images demonstrate endoscopic cannulation of the distal common bile duct with retrograde injected con trast extending to a filling defect in the mid to distal common bile duct. There is more proximal ref lux of contrast into the common bile duct and central intrahepatic biliary tree on the final image wi th no evident residual filling defect. IMPRESSION: 1. Gallstone in the mid to distal common bile duct which is not present on the final image suggesting that this has been extracted. Please refer to the ERCP procedure note for additional details. Reviewed, dictated and finalized at location A. [employer] IMPRESSION: 1. Gallstone in the mid to distal common bile duct which is not present on the final image suggesting that this has been extracted. Please refer to the ERCP p rocedure note for additional details.
--- NOTE | ~2022-07-27 | XR_ITS ---
UGI-AIR CONTRAST/SMALL BOWEL INDICATION: Duodenal perforation TECHNIQUE: Serial images of the upper GI tract structures and small bowel are performed following ora l administration of water-soluble contrast. COMPARISON: CT dated 07/30/2022 FINDINGS: Contrast flowed readily through the esophagus. There is a small sliding hiatal hernia with gastroesophageal reflux. Gastric contour, mucosa and motility are normal. There is a round filling de fect in the duodenal bulb. Cannot exclude polyp. There is mucosal irregularity and thickening in the descending duodenum. There is mottled gas surrounding the descending duodenum, consistent with perfor ation. IMPRESSION: 1: Mucosal thickening with irregularity of the descending duodenum with surrounding mottled gas. Find ings compatible with duodenitis with perforation. 2: Round filling defect in the duodenal bulb, suspicious for polyp. Recommend correlation with endos copy.. 3: Small hiatal hernia with gastroesophageal reflux. Reviewed, dictated and finalized at location A. STRATION OFFICER IMPRESSION: 1: Mucosal thickening with irregularity of the descending duodenum with surroun ding mottled gas. Findings compatible with duodenitis with perforation. 2: Round filling defect in the duodenal bulb, suspicious for polyp. Recommend correlation with endoscopy.. 3: Small hiatal hernia with gastroesophageal reflux.
--- NOTE | ~2022-07-27 | XR_ITS ---
EXAMINATION: XR ERCP DATE: 07/28/2022 13:30 [employer]AK OPERATOR [employer] INDICATION: ERCP, STONES . TECHNIQUE: 4 fluoroscopic images of the right upper quadrant were obtained during ERCP performed by t dilip surgeon. I was not present in the operating room. Fluoroscopy exposure time was 204.4 seconds. Air Kerma 82.85 mGy. DAP 2.58 mGym2. COMPARISON: CT and ultrasound abdomen from 07/27/2022 FINDINGS: Wire access into the biliary system followed by contrast injection. No definite filling defect. Possi ble deployment of a biliary stent. IMPRESSION: Fluoroscopic documentation of ERCP. Please refer to the operative note for complete procedural detail s . Reviewed, dictated and finalized at location K. OPERATOR [employer] IMPRESSION: Fluoroscopic documentation of ERCP. Please refer to the operative note for comp lete procedural details .
--- NOTE | ~2022-07-27 | XR_ITS ---
EXAMINATION: XR chest 1V portable DATE: 07/30/2022 17:24 INDICATION: Pneumothorax TECHNIQUE: frontal view of the chest was obtained. COMPARISON: Chest radiograph dated 10/13/[address] abdomen and pelvis dated 07/30/2022 FINDINGS: Small right apical pneumothorax. There is increased opacity in the medial right upper lobe is mostly medial right middle lobe along side the heart, bladder better appreciated on prior CT. Pneumomediasti num seen along side the distal descending thoracic aorta. No other airspace opacities, pulmonary thelma a, pleural effusion or left-sided pneumothorax. Heart size is normal. Plate and screw fixation for an terior spinal fusion in the lower cervical spine. IMPRESSION: 1. Small amount of pneumomediastinum and small right apical pneumothorax. 2. Airspace opacity medial right upper lung zone and in the right middle lobe along side the heart wh ich could represent atelectasis or less likely pneumonia. Reviewed, dictated and finalized at location A. RDION TUNER IMPRESSION: 1. Small amount of pneumomediastinum and small right apical pneumothorax. 2. Airspace opacity medial right upper lung zone and in the right middle lobe a long side the heart which could represent atelectasis or less likely pneumonia.
--- NOTE | ~2022-07-27 | CT_ITS ---
EXAMINATION: CT abdomen pelvis w con DATE: 07/27/2022 13:06 INDICATION: Right upper quadrant abdominal pain TECHNIQUE: Computed tomography (CT) of the abdomen and pelvis was performed with 100 mL Omnipaque-350 intravenous contrast. Automated exposure control and iterative reconstruction technique were employe d. The dose-length product was 1287.57 mGy-cm. COMPARISON: 10/05/2021 FINDINGS: Mild dependent atelectasis in the bilateral lower lobes. Heart size is normal. No pericardial or pleu ral effusion. Atherosclerotic coronary artery calcification. Liver, gallbladder, spleen, pancreas, bi lateral adrenal glands and kidneys are normal. Bowels including the appendix are normal. Bladder and prostate are unremarkable. No free intraperitoneal gas or fluid. No pathologically enlarged abdominal or pelvic lymphadenopathy. Moderate lumbar and lower thoracic spondylosis. 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 IMPRESSION: 1. No acute intra-abdominal/pelvic process. Reviewed, dictated and finalized at location A. FIELDER
--- NOTE | ~2022-07-27 | US_ITS ---
EXAMINATION: US abdomen limited DATE: 07/27/2022 15:04 INDICATION: Right upper quadrant abdominal pain. Transaminitis. TECHNIQUE: Multiple grayscale and Doppler ultrasound images of the abdomen were obtained. COMPARISON: CT abdomen and pelvis 07/27/2022 FINDINGS: The visualized portions of the head, body, and tail of the pancreas are normal. There is di ffuse hepatic steatosis. There is normal flow in main portal vein. The gallbladder is normal in size. No visible gallstones. Gallbladder wall thickening is noted. There was no sonographic Mata sign. T he common duct is normal and measures 5 mm. IMPRESSION: 1. Diffuse hepatic steatosis. 2. Gallbladder wall thickening, which may be seen with interstitial edema or chronic liver disease. Reviewed, dictated and finalized at location A. WEAVER CLOTH IMPRESSION: 1. Diffuse hepatic steatosis. 2. Gallbladder wall thickening, which may be seen with interstitial edema or ch ronic liver disease.
--- NOTE | ~2022-07-27 | CT_ITS ---
Non-contrast CT scan of the Abdomen and Pelvis Clinical indication: Abdominal pain, status post ERCP Technique: 5 mm axial scans were obtained through the abdomen and pelvis without intravenous or oral contrast. Dose reduction technique was used on this scan by utilizing automated exposure control and iterative reconstruction technique. The dose-length product (DLP) was 1122.16 mGy-cm. COMPARISON: 07/27/2022 Findings: Images through the lung bases demonstrate a partially imaged right pneumothorax, with part ial atelectasis of the anteromedial right middle lobe. Pneumomediastinum is also present in the visua lized mediastinum. There is no evidence of renal or ureteral calculi. The kidneys and the ureters are nondilated. The liver, spleen, pancreas, gallbladder, and adrenals appear normal. There is no aortic aneurysm. There is extraluminal air, in greatest concentration about the second portion of duodenum, but with n umerous additional bubbles of air throughout the right retroperitoneum, extending into the right lowe r quadrant. There are additional bubbles of free air about the upper IVC and right adrenal gland, as well as about the spleen and gastric fundus. There is also extraluminal contrast material again, pred ominantly about the second portion of the duodenum extending to the right side and into the right mid abdomen adjacent to the ascending colon, and into the pericholecystic region. Images through the pelvis were performed. Urinary bladder unremarkable. Prostate gland and seminal ve sicles are unremarkable. Impression: Perforation at the second portion of the duodenum, with extraluminal air and contrast material, as de tailed above. Partially imaged right pneumothorax with partial atelectasis of the anteromedial right middle lobe. Pneumomediastinum, again partially imaged. Findings discussed with the nurse caring for the patient in the GI lab at the time of this reading. Reviewed, dictated and finalized at location [] ENT REGISTRATION CLERK Impression: Perforation at the second portion of the duodenum, with extraluminal air and co ntrast material, as detailed above. Partially imaged right pneumothorax with partial atelectasis of the anteromedia l right middle lobe. Pneumomediastinum, again partially imaged. Findings discussed with the nurse caring for the patient in the GI lab at the t raisa of this reading.
--- NOTE | ~2022-07-27 | CT_ITS ---
CT Abdomen and Pelvis with contrast. History: Duodenal perforation status post ERCP. Spiral CT of the abdomen and pelvis was performed after the administration of intravenous contrast. 1 00 cc of Omnipaque 350 was administered intravenously without complication. Dose reduction technique was used on this scan by utilizing automated exposure control and iterative reconstruction technique. The dose-length product (DLP) was 1124.92 mGy-cm. COMPARISON: 07/30/2022 Findings: Scans through the lung bases demonstrate small amount of pneumomediastinum, decreased from prior exam. Previously noted pneumothorax no longer visualized. Lung bases are clear. The liver, spleen, pancreas, gallbladder, adrenals and kidneys are within normal limits. No evidence of aortic aneurysm. No lymphadenopathy is seen. There is no evidence of bowel obstruction. There are multiple small bubbles of extraluminal air with associated fluid and inflammatory change about the second portion of the duodenum extending towards t he gallbladder fossa, consistent with persistent leak/perforation and evolving phlegmon. No definite drainable collection present. More extensive/widespread retroperitoneal and mesenteric gas seen on pr ior exam is otherwise significantly improved. Images through the pelvis were performed. Urinary bladder unremarkable. Prostate gland and seminal ve sicles are unremarkable. No ascites is seen. Impression: Evolving, more extensive phlegmon about the second portion of the duodenum, with increased local flui d and persistent extraluminal air about the descending duodenum. This suggests persistent leak/perfor ation at the descending duodenum. Pneumomediastinum and other retroperitoneal/mesenteric free air is otherwise markedly improved. Reviewed, dictated and finalized at location [] FILER HAND Impression: Evolving, more extensive phlegmon about the second portion of the duodenum, wit h increased local fluid and persistent extraluminal air about the descending du odenum. This suggests persistent leak/perforation at the descending duodenum. Pneumomediastinum and other retroperitoneal/mesenteric free air is otherwise ma rkedly improved.
[2022-07-27 09:32] VITALS: BP 150/62; PULSE 100; RESP 16; TEMP 36.3; O2SAT 99
--- NOTE | 2022-07-27 09:35 | ECG_ITS ---
Measurements Intervals [place] Rate: 101 P: 54 CT: 150 QRS: 262 QRSD: 89 T: 55 QT: 321 QTc: 416 Interpretive Statements SINUS TACHYCARDIA MARKED RIGHT AXIS DEVIATION [QRS AXIS > 100] S1-S2-S3 PATTERN, CONSISTENT WITH PULMONARY DISEASE, RVH, OR NORMAL VARIANT CANNOT RULE OUT SEPTAL MYOCARDIAL INFARCTION , OLD COMPARED TO ECG 10/13/2021 00:55:42 NO SIGNIFICANT DIFFERENCE Electronically Signed On 07-27-2022 15:08:28 [employer]EDIT COLLECTION SPECIALIST by Alek Aragon M.D.
[2022-07-27 10:03] LABS: Albumin Level 4.5 g/dL (3.5-5.1); Alkaline Phosphatase 138 U/L (38-126); Anion Gap 10 mmol/L (8-16); Aspartate Amino Transferase 338 U/L (17-59); Bilirubin,Total 3.7 mg/dL (0.2-1.3); Blood Urea Nitrogen 14 mg/dL (9-20); Calcium 9.1 mg/dL (8.4-10.2); Carbon Dioxide 23 mmol/L (22-30); Chloride 106 mmol/L (98-107); Estimated CRCL calculation 89 ml/min; Estimated Glomerular Filt Rate > 60; Glucose 158 mg/dL (65-110); Lipase 22 U/L (23-300); Potassium 4.1 mmol/L (3.4-5.0); Sodium 139 mmol/L (137-145)
[2022-07-27 10:18] LABS: Alanine Aminotransferase 833 U/L (6-50)
[2022-07-27 10:28] LABS: Appearance Urine Clear (Clear); Bilirubin Urine 2+ (Negative); Blood Urine Negative (Negative); Color Urine Amber (Yellow); Glucose Urine UA Negative (Negative); Ketones Urine Trace mg/dL (Negative); Leukocyte Esterase Ur Negative LEU/UL (Negative); Nitrate Urine Negative (Negative); Protein Urine 1+ mg/dL (Negative); Specific Grav Ur 1.025 (1.001-1.035); pH Urine 5.5 (5.0-9.0)
[2022-07-27 10:38] LABS: Mucus Urine Moderate /lpf; RBC Urine 0-2 /hpf (0-2); Squamous Epithelial Cell Urine Occasional /hpf (Few)
[2022-07-27 10:39] LABS: Add Urine Microscopic? YES
--- NOTE | 2022-07-27 11:55 | ED.ABDPAIN ---
HPI - Abdominal Pain General Chief Complaint: Abdominal Pain Stated Complaint: abd pain Time Seen by Provider: 07/27/22 11:51 Source: patient Mode of arrival: ambulatory Limitations: no limitations History of Present Illness HPI narrative: This is a 67-year-old male that presents the emergency department for right upper quadrant pain ongoing over the last 2 days. Associated with fevers and nausea. Reports the pain is constant. It is intermittently sharp in nature. No known alleviating or exacerbating factors. He has not wanted to eat much due to the pain. Denies chest pain, vomiting or diarrhea. Related Data Home Medications Medication Instructions Recorded Confirmed calcium carbonate 600 mg calcium 600 mg PO DAILY 07/19/19 07/27/22 (1,500 mg) tablet (Calcium) ipratropium bromide 21 mcg (0.03 2 spray intranasal BID 07/19/19 07/27/22 %) nasal spray krill 1,000 mg-omega-3 170 mg-dha 1 cap PO DAILY 07/19/19 07/27/22 50 mg-epa 80 [id number]-[id number] capsule (krill oil) montelukast 10 mg tablet 10 mg PO DAILY 07/19/19 07/27/22 (Singulair) saw palmetto 160 mg capsule 160 mg PO DAILY 07/19/19 07/27/22 omeprazole 20 mg capsule,delayed 40 mg PO DAILY 07/20/19 07/27/22 release naproxen sodium 220 mg capsule 220 mg PO DAILY 01/31/20 07/27/22 famotidine 20 mg tablet 20 mg PO DAILY 07/22/20 07/27/22 fexofenadine 180 mg tablet 180 mg PO DAILY 04/18/21 07/27/22 Allergies Allergy/AdvReac Type Severity Reaction Status Date / Time Penicillins Allergy Mild pt does Verified 07/27/22 11:49 not recall Review of Systems Review of Systems: CONSTITUTIONAL: Reports fever CARDIOVASCULAR: Denies chest pain, or edema. RESPIRATORY: Denies dyspnea. GASTROINTESTINAL: Reports abdominal pain, nausea. Denies vomiting, or diarrhea. All systems reviewed & are unremarkable except as noted in HPI and below PMFSH Past Medical History Medical History Benign essential hypertension Diabetes Gastro-esophageal reflux disease without esophagitis History of prediabetes Mixed hyperlipidemia Numbness in both hands Obesity MARCELLA on CPAP Family History Family History Sibling Family history of suicide, Onset Age: 25 Patient's brother is Father Cerebrovascular accident Patient's father is Mother Family history of chronic obstructive pulmonary disease Patient's mother is Other Diabetes mellitus Family history of arthritis Family history of cardiovascular disease Hypertension Social History Social History Smoking status: Never smoker Second hand tobacco smoke exposure: Yes (when he was younger) Alcohol intake: current Alcohol use details: Social Substance use: never Substance use type: does not use Spiritual care concerns: No Exam Narrative: GENERAL: Well-appearing, well-nourished, and in no acute distress. HEAD: Normocephalic, atraumatic. EYES: EOMI. CHEST: Clear to auscultation. No respiratory distress. No wheezes rales or rhonchi HEART: Regular rate and rhythm. No murmur heard. Normal peripheral pulses. ABDOMEN: Soft, nondistended, normal active bowel sounds. Tender to palpation in the right upper quadrant, without guarding EXTREMITIES: Normal range of motion. No edema. SKIN: Warm, dry, no rash. NEURO: No focal deficits. Alert and oriented x3. PSYCH: Normal mood and affect Course Course Emergency Course: Patient was updated on workup and need for admission. Reports his pain is controlled at this time Consultations Consultation #1: Spoke with Dr. Adam about patient and work-up who will consult Date: 07/27/22 Consultation #2: Spoke with hospitalist about patient and work-up who accepts admission Date: 07/27/22 Vital Signs Vital signs: Vital Signs Temperature 97.4 F L 07/27
[2022-07-27 12:44] LABS: Basophils Percent Auto 0.3 % (0.2-1.2); Eosinophils Absolute Auto 0.1 K/mm3 (0-0.3); Eosinophils Percent Auto 0.8 % (0-4.4); Hematocrit 40.9 % (42.0-52.0); Hemoglobin 14.2 g/dL (14.0-18.0); Immature Granulocyte Absolute 0.02 K/mm3 (0.00-0.031); Immature Granulocyte Percent A 0.3 % (0-0.5); Immature Platelet Fraction Pct 2.9 % (0.9-11.2); Lymphocytes Absolute Auto 0.61 K/mm3 (0.9-3.2); Lymphocytes Percent Auto 7.8 % (18.3-44.2); Mean Corpuscular HGB Conc 34.7 g/dl (32-36); Mean Corpuscular Hemoglobin 34.1 pg (26-34); Mean Corpuscular Volume 98.1 fl (80-100); Mean Platelet Volume 10.1 fl (7.4-10.4); Monocytes Absolute Auto 0.5 K/mm3 (0.1-0.6); Neutrophils Absolute Auto 6.7 K/mm3 (1.3-6.7); Neutrophils Percent Auto 84.8 % (45.5-73.1); Platelet Count Result 101 k/mm3 (150-375); Red Blood Count 4.17 M/mm3 (4.6-6.20); Red Cell Distribution Width 12.8 % (11.5-14.5); White Blood Count 7.9 K/mm3 (4.5-10.0)
[2022-07-27] MEDS: SODIUM CHLORIDE 0.9% IV 1,000 ML 999 ML IV CONT (13:32)
--- NOTE | 2022-07-27 16:08 | WPDGICN ---
Assessment and Plan Assessment and plan (1) Epigastric pain: Code(s): R10.13 - Epigastric pain Status: Acute Assessment and Plan: It seems that his pain is due to recurrent episodes of biliary colic which have not been able to be proven with imaging. (2) Transaminitis: Code(s): R74.01 - Elevation of levels of liver transaminase levels Status: Acute Assessment and Plan: As his enzymes have been jumping up with the to tack, he undoubtedly has choledocholithiasis. I discussed with him ERCP. I explained how the procedure is done. The possible risks such as bleeding, perforation or pancreatitis and that complications could result in surgery and rarely be fatal. (3) Hyperbilirubinemia: Code(s): E80.6 - Other disorders of bilirubin metabolism Status: Acute Assessment and Plan: This is the 1st time his bilirubin has been elevated. I explained that he has stones or sludge in the distal common bile duct. There is a risk of this turning into pancreatitis but so far does not appear that is a problem. (4) BMI 33.0-33.9,adult: Code(s): Z68.33 - Body mass index [BMI] 33.0-33.9, adult Status: Acute Plan He was scheduled for ERCP to be done tomorrow. I will start him on antibiotics. GI Consult Note Consult date/time: 07/27/22 16:08 HPI: Osvaldo Zimmerman is a 67 year old male Who presents emergency room with severe abdominal pain. This began on Wednesday after eating some yogurt. He thought at 1st it might be food poisoning. The pain however reminds him of his 2 or 3 previous attacks that he has had this year. Each attack would last about 2 or 3 days. He gets pain in the upper abdomen that begins to radiate. One time he remembers that went to the back. He has also been told his liver enzymes were elevated when tested. Imaging was negative for biliary tract disease, including ultrasound which showed some vague changes but no stones and a recent HIDA scan that was normal. He was given Ursodiol in effort to try to dissolve small calculi and sludge but he states it apparently did not work. Today he has a bilirubin over 3. The 1st time it has been elevated this year. Also his ALT is 833. In August was elevated at 521 but was actually normal in March. It was also elevated somewhat when he had an attack in late September and again in October but never this high. in between attacks he feels good. His appetite is good. He denies dysphagia or heartburn. He has had no weight loss. He has not feel like eating today. He also mentioned he has had a fever with each attack. It was a little over 101 this time. He has no prior history of liver disease or pancreatic disease. Review of Systems Review of Systems: All systems reviewed & are unremarkable except as noted in HPI and below PMFSH Past Medical History Medical History Benign essential hypertension Diabetes Gastro-esophageal reflux disease without esophagitis History of prediabetes Mixed hyperlipidemia Numbness in both hands Obesity MARCELLA on CPAP Family History Family History Sibling Family history of suicide, Onset Age: 25 Patient's brother is Father Cerebrovascular accident Patient's father is Mother Family history of chronic obstructive pulmonary disease Patient's mother is Other Diabetes mellitus Family history of arthritis Family history of cardiovascular disease Hypertension Social History Social History Smoking status: Never smoker Second hand tobacco smoke exposure: Yes (when he was younger) Alcohol intake: current Alcohol use details: Social Substance use: never Substance use type: does not use Spiritual care concerns: No Meds Home Medications and Amrit
[2022-07-27 16:47] LABS: Influenza A QL RT-PCR Negative (Negative); Influenza B QL RT-PCR Negative (Negative); SARS-CoV-2 RNA PCR Negative
--- NOTE | 2022-07-27 18:30 | PM.IMHP ---
H&P: HPI History of Present Illness Date/Time: 07/27/22 18:30 Chief Complaint: Abdominal pain. Narrative: This is a 67-year-old male with hypertension, hyperlipidemia, prediabetes, and GERD who presented to the emergency department from home for evaluation of abdominal pain. His pain started not long after having yogurt on Wednesday and initially he thought perhaps that he had food poisoning however his symptoms have continued. He describes a deep pain which is occasionally sharp in nature located in the right upper quadrant, at times radiating to the back and shoulder. The pain is similar to episodes he was experiencing in September and October at which time he was found to have ?crystals in my gallbladder and ducts? for which he took ursodiol for a time and his symptoms had not recurred prior to this weekend. He also reports intermittent nausea, headache, fever to a little over 101?, and loose stools. He denies cold and flu symptoms, chest pain, cough, hematemesis, melena, and hematochezia. He has only had some rice soup these last 2 days and today he has not much of an appetite. Today his LFTs were once again elevated and he is being admitted for GI consultation and closer monitoring. Review of Systems Review of Systems: Twelve systems were reviewed and are negative except for as per HPI. [facility] Past Medical History Medical History (Updated 07/27/22 @ 23:18 by Sherry Costa PA-C) Benign essential hypertension Benign prostatic hyperplasia Gastroesophageal reflux disease Mixed hyperlipidemia Obstructive sleep apnea treated with BiPAP Prediabetes Surgical History Surgical History (Updated 07/27/22 @ 18:40 by Sherry Costa PA-C) History of cataract extraction History of cervical spinal surgery History of colonoscopy with polypectomy History of skin graft Family History Family History Sibling Family history of suicide, Onset Age: 25 Patient's brother is Father Cerebrovascular accident Patient's father is Mother Family history of chronic obstructive pulmonary disease Patient's mother is Other Diabetes mellitus Family history of arthritis Family history of cardiovascular disease Hypertension Social History Social History (Updated 07/27/22 @ 23:16 by Sherry Costa PA-C) Social History: Surrogate medical decision maker: Jaswinder Matos, partner. Code status: Full code. Smoking status: Never smoker Second hand tobacco smoke exposure: Yes (when he was younger) Alcohol intake: current Drinks per week: 1 Alcohol use details: Social Substance use: never Substance use type: does not use Lack of Transportation: No Lack of Food: Never True Current Housing: I Have Housing Concerned About Future Housing: No Difficulty Paying Gas/Electric Bills: No Difficulty Paying for Meds: No Currently Unemployed: No Education: Bachelor's Degree Difficulty w/ Childcare or Family Care: No Spiritual care concerns: No Meds Home Medications and Allergies Home Medications Medication Instructions Recorded Confirmed Type calcium carbonate 600 mg calcium 600 mg PO DAILY 07/19/19 07/27/22 History (1,500 mg) tablet (Calcium) ipratropium bromide 21 mcg (0.03 2 spray intranasal BID 07/19/19 07/27/22 History %) nasal spray krill 1,000 mg-omega-3 170 mg-dha 1 cap PO DAILY 07/19/19 07/27/22 History 50 mg-epa 80 sm-ooqzro-jwtki capsule (krill oil) montelukast 10 mg tablet 10 mg PO DAILY 07/19/19 07/27/22 History (Singulair) saw palmetto 160 mg capsule 160 mg PO DAILY 07/19/19 07/27/22 History omeprazole 20 mg capsule,delayed 40 mg PO DAILY 07/20/19 07/27/22 History release naproxen sodium 220 mg capsule 220 mg PO DAILY 01/31/20 07/27/22 History famotidine 20 mg tablet 20 mg PO DAILY 07/22/20 07/27/22 History fexofenadine 180 mg tablet 180 mg PO DAILY
[2022-07-27 18:36] LABS: Troponin I < 0.012 ng/mL (0.000-0.034)
[2022-07-27] MEDS: levoFLOXacin 500 MG/D5W 100 ML 500 MG/100 ML BAG 100 MG IVPB (18:40)
--- NOTE | 2022-07-27 19:38 | PC.NURSE ---
Attempted to call report to the floor. Was on hold for 5 minutes. Will attempt to call back.
[2022-07-27 20:30] VITALS: BMI 33.7
--- NOTE | 2022-07-27 21:38 | ADMGEN ---
This patient, Osvaldo Zimmerman, was admitted to [facility] Surg Room 325-01. Patient/family oriented to hospital policies and general routines including ID bracelet, bed and alarms, visiting hours, pain management, procedures, bathroom and other care routines, personal items, smoking policy, room service/diet, and visiting hours. Information on how to activate the Rapid Response Team has been discussed. Patient/Family are encouraged to report perceived risks to care and to ask questions if they do not understand what they are told or what they should do.
[2022-07-27 21:53] VITALS: BP 136/80; PULSE 90; RESP 20; TEMP 36.3; O2SAT 96
[2022-07-28] VITALS (10 sets, daily range): BP systolic 119–160; BP diastolic 66–97; PULSE 16–83; RESP 14–20; TEMP 35.7–36.8; O2SAT 97–100
[2022-07-28] MEDS: LACTATED RINGERS 1,000 ML 100 ML IV CONT ×2 (00:31→11:09)
[2022-07-28] MEDS: amLODIPine BESYLATE 5 MG TABLET PO ×2 (00:31→20:10)
[2022-07-28 06:46] LABS: Hematocrit 39.2 % (42.0-52.0); Hemoglobin 13.6 g/dL (14.0-18.0); Immature Platelet Fraction Pct 2.6 % (0.9-11.2); Mean Corpuscular HGB Conc 34.7 g/dl (32-36); Mean Platelet Volume 10.3 fl (7.4-10.4); Platelet Count Result 91 k/mm3 (150-375); Red Cell Distribution Width 12.4 % (11.5-14.5); White Blood Count 5.1 K/mm3 (4.5-10.0)
[2022-07-28 06:55] LABS: Alanine Aminotransferase 472 U/L (6-50); Albumin Level 3.7 g/dL (3.5-5.1); Alkaline Phosphatase 106 U/L (38-126); Anion Gap 7 mmol/L (8-16); Aspartate Amino Transferase 125 U/L (17-59); Bilirubin,Total 1.9 mg/dL (0.2-1.3); Blood Urea Nitrogen 13 mg/dL (9-20); Calcium 8.2 mg/dL (8.4-10.2); Carbon Dioxide 22 mmol/L (22-30); Chloride 106 mmol/L (98-107); Estimated CRCL calculation 110 ml/min; Estimated Glomerular Filt Rate > 60; Glucose 119 mg/dL (65-110); Magnesium 2.1 mg/dL (1.6-2.3); Potassium 3.5 mmol/L (3.4-5.0); Sodium 135 mmol/L (137-145)
--- NOTE | 2022-07-28 08:18 | PC.NURSE ---
Spoke with nurse in GI lab, am not supposed to give 0900 pepcid, singulair, or protonix as pt will be under heavy sedation for procedure
[2022-07-28] MEDS: IPRATROPIUM NASAL SPRAY 0.03% 15 ML BOTTLE 2 SPRAY NASAL ×2 (11:11→17:06)
[2022-07-28 11:46] LABS: Glucose Point of Care 133 mg/dl (65-105)
--- NOTE | 2022-07-28 11:55 | PM.IMPN ---
Progress Note: A&P Assessment and Plan (1) Epigastric pain: Code(s): R10.13 - Epigastric pain Status: Inactive Assessment and Plan: Presented with ongoing epigastric pain for couple of days with associated fever, nausea, and decreased appetite Appreciate gastroenterology consultation Symptoms felt to be most consistent with biliary colic and possible choledocholithiasis Planning for ERCP today Patient is NPO at this time Continue with IV fluids Continue IV Levaquin Advance diet as tolerated following ERCP per GI recommendation Patient remains afebrile this admission (2) Transaminitis: Code(s): R74.01 - Elevation of levels of liver transaminase levels Status: Acute Assessment and Plan: Likely secondary to suspected choledocholithiasis as noted above Total bilirubin 1.9 today, improved from admission AST and ALT both decreased by half today Continue to monitor LFTs (3) Hyperlipidemia: Qualifiers: Hyperlipidemia type: unspecified Qualified Code(s): E78.5 - Hyperlipidemia, unspecified Code(s): E78.5 - Hyperlipidemia, unspecified Status: Acute Assessment and Plan: Atorvastatin will be held given elevated LFTs (4) Gastroesophageal reflux disease: Code(s): K21.9 - Gastro-esophageal reflux disease without esophagitis Status: Acute Assessment and Plan: Patient complains of acid reflux Will give IV pantoprazole while NPO Continue home p.o. pantoprazole on famotidine when able to tolerate p.o. meds (5) Obstructive sleep apnea treated with BiPAP: Code(s): G47.33 - Obstructive sleep apnea (adult) (pediatric) Status: Acute Assessment and Plan: Continue home BiPAP (6) Prediabetes: Code(s): R73.03 - Prediabetes Status: Acute Assessment and Plan: Last A1c reportedly 5.9. Blood sugars have been well controlled Continue with Accu-Cheks q.6 hours with hypoglycemic protocol Check updated A1c (7) Abnormal urinalysis: Code(s): R82.90 - Unspecified abnormal findings in urine Status: Acute Assessment and Plan: UA is slightly abnormal, however patient is asymptomatic Urine culture is pending at this time Patient is on IV Levaquin per GI recommendations which will be continued Subjective Date/time seen: 07/28/22 11:55 Interval history: Date of service: 07/28/2022 Osvaldo Zimmerman is a 67-year-old male with a history of MARCELLA, hyperlipidemia, GERD, BPH, hypertension, and prediabetes who is seen in follow-up for suspected choledocholithiasis. He is feeling well today. He has a slight mid abdominal pain which she rates as 3/10. Last night he felt nauseous but today this has improved and he has not had any episodes of vomiting. His last bowel movement was Wednesday. He has been NPO today for ERCP. He is feeling very hungry and is eager to have something to eat and drink. Very symptoms. Denies shortness of breath, cough, chest pain. He does endorse acid reflux Review of Systems Review of Systems: All systems reviewed & are unremarkable except as noted in HPI and below Exam Narrative: General: well-nourished, well-appearing 67-year-old male, supine in bed , comfortable, NARD Neuro: awake, alert and oriented x4, speech clear, no focal neuro deficits noted HEENMT: normocephalic, atraumatic, EOMI, sclerae anicteric Respiratory: clear to auscultation bilaterally, nonlabored breathing Cardio: regular rate, regular rhythm with S1-S2 Abdomen: protuberant, normoactive bowel sounds, soft, nontender to palpation Extremities: no edema, erythema, or tenderness to palpation, DP pulses 2+ bilaterally Skin: no rashes or lesions, warm and dry Psych: appropriate mood and affect, judgment and insight intact Objective Data Vital Signs Vital Signs: Vital Signs - 24 hr 07/27/22 21:53 07/28/22 06:00 07/28/22 08:20 Temperature 97.4 F L 98 F Pulse Rate 90
[2022-07-28] MEDS: PANTOPRAZOLE SODIUM IV 40 MG VIAL IV PUSH (12:12)
[2022-07-28 12:42] LABS: Glucose Point of Care 122 mg/dl (65-105)
[2022-07-28] MEDS: LACTATED RINGERS 1,000 ML 150 ML IV CONT (13:00)
[2022-07-28] MEDS: INDOMETHACIN 50 MG SUPP.RECT 100 MG RECTAL (13:20)
[2022-07-28 16:20] LABS: Glucose Point of Care 163 mg/dl (65-105)
[2022-07-28] MEDS: levoFLOXacin 500 MG/D5W 100 ML 500 MG/100 ML BAG 100 MG IVPB (17:07)
[2022-07-28 22:55] LABS: Glucose Point of Care 110 mg/dl (65-105)
[2022-07-29] MEDS: LACTATED RINGERS 1,000 ML 100 ML IV CONT ×2 (00:04→10:13)
[2022-07-29 06:00] VITALS: BP 120/63; PULSE 70; RESP 19; TEMP 35.7; O2SAT 98
[2022-07-29 06:48] LABS: Hematocrit 39.9 % (42.0-52.0); Hemoglobin 14.1 g/dL (14.0-18.0); Immature Platelet Fraction Pct 3.7 % (0.9-11.2); Mean Corpuscular HGB Conc 35.3 g/dl (32-36); Mean Corpuscular Hemoglobin 33.6 pg (26-34); Mean Platelet Volume 10.4 fl (7.4-10.4); Platelet Count Result 104 k/mm3 (150-375); Red Cell Distribution Width 12.3 % (11.5-14.5); White Blood Count 5.3 K/mm3 (4.5-10.0)
[2022-07-29 07:23] LABS: Chloride 107 mmol/L (98-107)
[2022-07-29 07:28] LABS: Alanine Aminotransferase 400 U/L (6-50); Albumin Level 3.7 g/dL (3.5-5.1); Alkaline Phosphatase 183 U/L (38-126); Anion Gap 9 mmol/L (8-16); Aspartate Amino Transferase 147 U/L (17-59); Bilirubin,Total 3.6 mg/dL (0.2-1.3); Blood Urea Nitrogen 12 mg/dL (9-20); Calcium 8.2 mg/dL (8.4-10.2); Carbon Dioxide 24 mmol/L (22-30); Estimated CRCL calculation 110 ml/min; Estimated Glomerular Filt Rate > 60; Glucose 131 mg/dL (65-110); Potassium 3.4 mmol/L (3.4-5.0); Sodium 140 mmol/L (137-145)
[2022-07-29 07:57] LABS: Glucose Point of Care 144 mg/dl (65-105)
[2022-07-29] MEDS: ACETAMINOPHEN 325 MG TABLET 650 MG PO (08:58)
[2022-07-29] MEDS: PANTOPRAZOLE 40 MG TABLET PO ×2 (08:59→18:17)
[2022-07-29] MEDS: IPRATROPIUM NASAL SPRAY 0.03% 15 ML BOTTLE 2 SPRAY NASAL ×2 (08:59→20:38)
[2022-07-29] MEDS: FAMOTIDINE 20 MG TABLET PO (08:59)
[2022-07-29] MEDS: MONTELUKAST SODIUM 10 MG TABLET PO (08:59)
--- NOTE | 2022-07-29 09:00 | P.PNIM_ITS ---
Progress Note: A&P Assessment and Plan (1) Choledocholithiasis: Code(s): K80.50 - Calculus of bile duct without cholangitis or cholecystitis without obstruction Status: Acute Assessment and Plan: * Presented with ongoing epigastric pain for couple of days with associated fever, nausea, and decreased appetite * Appreciate gastroenterology consultation * Symptoms felt to be most consistent with biliary colic and possible choledocholithiasis * ERCP 07/28/22 removed stone and sludge * Diet per GI * General surgery consulted * Possible cholecystectomy planned for tomorrow * Continue with IV fluids * Continue IV Levaquin * Patient remains afebrile this admission (2) Transaminitis: Code(s): R74.01 - Elevation of levels of liver transaminase levels Status: Acute Assessment and Plan: * Likely secondary to suspected choledocholithiasis as noted above * Total bilirubin back up o 3.6 today, most likely related to procedure from yesterday * AST and ALT currently 147/400 * Continue to monitor LFTs (3) Hyperlipidemia: Qualifiers: Hyperlipidemia type: unspecified Qualified Code(s): E78.5 - Hyperlipidemia, unspecified Code(s): E78.5 - Hyperlipidemia, unspecified Status: Acute Assessment and Plan: Atorvastatin will be held given elevated LFTs (4) Gastroesophageal reflux disease: Code(s): K21.9 - Gastro-esophageal reflux disease without esophagitis Status: Acute Assessment and Plan: Patient complains of acid reflux * Will give IV pantoprazole while NPO * Continue home p.o. pantoprazole on famotidine when able to tolerate p.o. meds (5) Obstructive sleep apnea treated with BiPAP: Code(s): G47.33 - Obstructive sleep apnea (adult) (pediatric) Status: Acute Assessment and Plan: Continue home BiPAP (6) Prediabetes: Code(s): R73.03 - Prediabetes Status: Acute Assessment and Plan: Last A1c reportedly 5.9. Blood sugars have been well controlled * Continue with Accu-Cheks q.6 hours with hypoglycemic protocol * A1c 6.0 * stable * Glucose this am 131 (7) Abnormal urinalysis: Code(s): R82.90 - Unspecified abnormal findings in urine Status: Acute Assessment and Plan: * UA is slightly abnormal, however patient is asymptomatic * Urine culture grew enterococcus * Continue IV Levaquin, add vanc Time Spent With Patient Time with patient: Greater than 35 minutes Subjective Date/time seen: 07/29/22899 Interval history: 07/29/22899 Patient is doing ok today. He stated that he is feeling better, however, is still having some epigastric pain. patient did state that he has had about 3 episodes over the last year. He stated that his episodes do last about 3-4 days. He denies any chest pain, shortness a breath, vomiting, diarrhea, constipation. Patient has been able to eat and tolerate some clear liquids. Did consult surgery at this time for a cholecystectomy. 07/28/2022 11:55 Osvaldo Zimmerman is a 67-year-old male with a history of MARCELLA, hyperlipidemia, GERD, BPH, hypertension, and prediabetes who is seen in follow-up for suspected choledocholithiasis. He is feeling well today. He has a slight mid abdominal
--- NOTE | 2022-07-29 09:00 | PM.IMPN ---
Progress Note: A&P Assessment and Plan (1) Choledocholithiasis: Code(s): K80.50 - Calculus of bile duct without cholangitis or cholecystitis without obstruction Status: Acute Assessment and Plan: Presented with ongoing epigastric pain for couple of days with associated fever, nausea, and decreased appetite Appreciate gastroenterology consultation Symptoms felt to be most consistent with biliary colic and possible choledocholithiasis ERCP 07/28/22 removed stone and sludge Diet per GI General surgery consulted Possible cholecystectomy planned for tomorrow Continue with IV fluids Continue IV Levaquin Patient remains afebrile this admission (2) Transaminitis: Code(s): R74.01 - Elevation of levels of liver transaminase levels Status: Acute Assessment and Plan: Likely secondary to suspected choledocholithiasis as noted above Total bilirubin back up o 3.6 today, most likely related to procedure from yesterday AST and ALT currently 147/400 Continue to monitor LFTs (3) Hyperlipidemia: Qualifiers: Hyperlipidemia type: unspecified Qualified Code(s): E78.5 - Hyperlipidemia, unspecified Code(s): E78.5 - Hyperlipidemia, unspecified Status: Acute Assessment and Plan: Atorvastatin will be held given elevated LFTs (4) Gastroesophageal reflux disease: Code(s): K21.9 - Gastro-esophageal reflux disease without esophagitis Status: Acute Assessment and Plan: Patient complains of acid reflux Will give IV pantoprazole while NPO Continue home p.o. pantoprazole on famotidine when able to tolerate p.o. meds (5) Obstructive sleep apnea treated with BiPAP: Code(s): G47.33 - Obstructive sleep apnea (adult) (pediatric) Status: Acute Assessment and Plan: Continue home BiPAP (6) Prediabetes: Code(s): R73.03 - Prediabetes Status: Acute Assessment and Plan: Last A1c reportedly 5.9. Blood sugars have been well controlled Continue with Accu-Cheks q.6 hours with hypoglycemic protocol A1c 6.0 stable Glucose this am 131 (7) Abnormal urinalysis: Code(s): R82.90 - Unspecified abnormal findings in urine Status: Acute Assessment and Plan: UA is slightly abnormal, however patient is asymptomatic Urine culture grew enterococcus Continue IV Levaquin, add vanc Time Spent With Patient Time with patient: Greater than 35 minutes Subjective Date/time seen: 07/29/22899 Interval history: 07/29/22899 Patient is doing ok today. He stated that he is feeling better, however, is still having some epigastric pain. patient did state that he has had about 3 episodes over the last year. He stated that his episodes do last about 3-4 days. He denies any chest pain, shortness a breath, vomiting, diarrhea, constipation. Patient has been able to eat and tolerate some clear liquids. Did consult surgery at this time for a cholecystectomy. 07/28/2022 11:55 Osvaldo Zimmerman is a 67-year-old male with a history of MARCELLA, hyperlipidemia, GERD, BPH, hypertension, and prediabetes who is seen in follow-up for suspected choledocholithiasis. He is feeling well today. He has a slight mid abdominal pain which she rates as 3/10. Last night he felt nauseous but today this has improved and he has not had any episodes of vomiting. His last bowel movement was Wednesday. He has been NPO today for ERCP. He is feeling very hungry and is eager to have something to eat and drink. Very symptoms. Denies shortness of breath, cough, chest pain. He does endorse acid reflux 07/27/22? 18:30 This is a 67-year-old male with hypertension, hyperlipidemia, prediabetes, and GERD who presented to the emergency department from home for evaluation of abdominal pain. His pain started not long after having yogurt on Wednesday a
--- NOTE | 2022-07-29 11:45 | PM.CNGS ---
Assessment and Plan Assessment and plan (1) Choledocholithiasis: Code(s): K80.50 - Calculus of bile duct without cholangitis or cholecystitis without obstruction Status: Acute Assessment and Plan: Presented with imaging negative for gallstones but elevated LFTs. He underwent ERCP yesterday with findings of a common duct stone. Total bilirubin came down yesterday but is up again today. Discussed the patient's case with Dr. Sylvester. He recommends the patient eventually have a laparoscopic cholecystectomy under general anesthesia to prevent recurrent events and future complications of gallstones. Description of the procedure, risks, benefits, expected outcomes, and expected recovery were discussed with the patient. Since his bilirubin went back up today, we will repeat labs again tomorrow and re-evaluate to find most optimal time to proceed with surgery. Will make him NPO after midnight in case he is able to be added on and labs have improved. Thank you for allowing us to see the patient in consultation and we will continue to follow along with you. (2) Transaminitis: Code(s): R74.01 - Elevation of levels of liver transaminase levels Status: Acute Assessment and Plan: Elevated LFTs with total bilirubin 3.7 on admission. Bilirubin came down to 1.9 yesterday and back up to 3.6 today. S/p ERCP with common duct stone extracted yesterday. Will repeat labs tomorrow. See plan above. (3) Obstructive sleep apnea treated with BiPAP: Code(s): G47.33 - Obstructive sleep apnea (adult) (pediatric) Status: Acute (4) Prediabetes: Code(s): R73.03 - Prediabetes Status: Acute (5) Benign prostatic hyperplasia: Code(s): N40.0 - Benign prostatic hyperplasia without lower urinary tract symptoms Status: Acute (6) Obesity: Code(s): E66.9 - Obesity, unspecified Status: Acute (7) Gastroesophageal reflux disease: Code(s): K21.9 - Gastro-esophageal reflux disease without esophagitis Status: Acute (8) Benign essential hypertension: Code(s): I10 - Essential (primary) hypertension Status: Acute Plan I have discussed the patient's case and plan of care with Dr. Sylvester. History of Present Illness Consult details Consult date: 07/29/22 Reason for consult: other (choledocholithiasis) Requesting physician: Pio Mendez APN-C Narrative: This is a 67-year-old man with hypertension, BPH, hyperlipidemia, GERD, MARCELLA, and prediabetes, who presented to the ER 2 days ago with complaints of right upper quadrant abdominal pain for 2 days. Also had reported fevers and nausea. Workup in the ED showed elevated LFTs with a total bilirubin of 3.7. Lipase normal. He does have a history of mildly elevated AST and ALT, but all LFTs were elevated from baseline. CT scan of the abdomen and pelvis showed no acute intra-abdominal or pelvic process, no visible gallstones. Right upper quadrant abdominal ultrasound showed diffuse hepatic steatosis with gallbladder wall thickening, but no visible gallstones. The patient was admitted and GI was consulted. He underwent an ERCP with sphincterotomy yesterday. He was found to have a common duct stone that was removed successfully. Total bilirubin came down to 1.9 yesterday but is back up to 3.6 today. Our service was consulted for surgical evaluation for choledocholithiasis. He is now seen on the medical floor. He has seen Dr. Resendez in October of this year in regards to his gallbladder. At that time, he was experiencing left upper quadrant abdominal pain that brought him into the ER and was evaluated as an outpatient by the surgeon. He has had multiple previous tests to workup his abdominal pain earlier this year, including an ultrasound, HIDA scan, and CT of the abdomen and pelvis. HIDA scan is essentially normal. Right upper quadrant ultrasound showed gallbladder debris in August. At that time, it was unclear if his symptoms were
[2022-07-29 11:46] LABS: Glucose Point of Care 185 mg/dl (65-105)
--- NOTE | 2022-07-29 13:05 | WPDANESPN ---
Anes - Prog Note Post-Op Date/Time: 07/29/22 13:05 Vital Signs: Last Vital Signs Temp 35.7 C L 07/29/22 06:00 Pulse 70 07/29/22 06:00 Resp 19 07/29/22 06:00 BP 120/63 07/29/22 06:00 Pulse Ox 98 07/29/22 06:00 O2 Del Method Room Air 07/29/22 08:59 O2 Flow Rate 4 07/28/22 14:16 Pain Score (VAS): 0 I/O: Intake & Output 07/28/22 07/29/22 07/29/22 23:59 07:59 15:59 Intake Total 1510 1240 Balance 1510 1240 Laboratory Tests 07/29/22 06:05 07/29/22 07:00 07/28/22 07/28/22 07/29/22 16:17 22:51 06:05 WBC 5.3 RBC 4.20 L Hgb 14.1 Hct 39.9 L MCV 95.0 MCH 33.6 MCHC 35.3 RDW 12.3 Plt Count 104 L MPV 10.4 % Immature Plt Fraction 3.7 Sodium Potassium Chloride Carbon Dioxide Anion Gap BUN Creatinine Estim Creat Clear Calc Estimated GFR Glucose POC Capillary Glucose 163 H 110 H Hemoglobin A1c Calcium Total Bilirubin AST ALT Alkaline Phosphatase Total Protein Albumin 07/29/22 07/29/22 07/29/22 06:05 07:00 07:55 WBC RBC Hgb Hct MCV MCH MCHC RDW Plt Count MPV % Immature Plt Fraction Sodium 140 Potassium 3.4 Chloride 107 Carbon Dioxide 24 Anion Gap 9 BUN 12 Creatinine 0.80 Estim Creat Clear Calc 110 Estimated GFR > 60 Glucose 131 H POC Capillary Glucose 144 H Hemoglobin A1c 6.0 H Calcium 8.2 L Total Bilirubin 3.6 H AST 147 H ALT 400 H Alkaline Phosphatase 183 H Total Protein 7.0 Albumin 3.7 07/29/22 11:42 WBC RBC Hgb Hct MCV MCH MCHC RDW Plt Count MPV % Immature Plt Fraction Sodium Potassium Chloride Carbon Dioxide Anion Gap BUN Creatinine Estim Creat Clear Calc Estimated GFR Glucose POC Capillary Glucose 185 H Hemoglobin A1c Calcium Total Bilirubin AST ALT Alkaline Phosphatase Total Protein Albumin Microbiology 07/27/22 09:58 Unspecified Urine Culture - Preliminary Enterococcus species Patient Feedback: Patient satisfied with anesthetic care.
[2022-07-29 14:00] VITALS: BP 143/80; PULSE 90; RESP 16; TEMP 36.4; O2SAT 98
--- NOTE | 2022-07-29 14:47 | WPDGIPROGNO ---
Progress Note: A&P Assessment and Plan (1) Epigastric pain: Code(s): R10.13 - Epigastric pain Status: Inactive Assessment and Plan: It seems that his pain is due to recurrent episodes of biliary colic which have not been able to be proven with imaging. 07/29/2022 he is having very little pain today. He describes what he calls heartburn in the epigastric area. (2) Transaminitis: Code(s): R74.01 - Elevation of levels of liver transaminase levels Status: Acute Assessment and Plan: As his enzymes have been jumping up with the to tack, he undoubtedly has choledocholithiasis. I discussed with him ERCP. I explained how the procedure is done. The possible risks such as bleeding, perforation or pancreatitis and that complications could result in surgery and rarely be fatal. 07/29/2022 his transaminases are about the same as they had been. (3) Hyperbilirubinemia: Code(s): E80.6 - Other disorders of bilirubin metabolism Status: Acute Assessment and Plan: This is the 1st time his bilirubin has been elevated. I explained that he has stones or sludge in the distal common bile duct. There is a risk of this turning into pancreatitis but so far does not appear that is a problem. Bilirubin remains 3.6. If it does not drop, I would consider MRCP to rule out persistent common bile duct stone (4) BMI 33.0-33.9,adult: Code(s): Z68.33 - Body mass index [BMI] 33.0-33.9, adult Status: Acute (5) Cholelithiasis with choledocholithiasis: Code(s): K80.70 - Calculus of gallbladder and bile duct without cholecystitis without obstruction Status: Acute Assessment and Plan: he has been seen by surgery and the plan is to perform a cholecystectomy, assuming his LFTs improved. If not, a cholangiogram could be done at the time surgery. Plan He was scheduled for ERCP to be done tomorrow. I will start him on antibiotics. Subjective Date/time seen: 07/29/22 14:47 This morning he states that he feels good. He has not required pain medicines during the night. He describes what he calls heartburn in the epigastric area but he is eager to try eating. Exam Const: General: alert and overweight Nutritional Appearance: overweight Orientation/consciousness: patient oriented x3 Eyes: Sclera: sclerae normal Resp: Auscultation: clear to auscultation bilaterally Cardio: Rhythm: regular rhythm GI: Inspection: obesity Auscultation: normal bowel sounds Skin: General skin exam: jaundice ( Particularly in the face.) Neuro: General: patient oriented x3 Objective Data Vital Signs Vital Signs: Vital Signs - 24 hr 07/28/22 22:00 07/29/22 06:00 07/29/22 08:59 Temperature 36.0 C L 35.7 C L Pulse Rate 69 70 Respiratory Rate 18 19 Blood Pressure 121/66 120/63 Pulse Oximetry 97 98 Oxygen Delivery Room Air Intake/Output Intake/Output: Intake & Output 07/26/22 07/27/22 07/28/22 07/29/22 23:59 23:59 23:59 23:59 Intake Total 1100 2560 1240 Balance 1100 2560 1240 Meds/Results Medications: Active Medications Generic Name Dose Route Start Last Admin Trade Name Freq PRN Reason Stop Dose Admin Acetaminophen 650 mg 07/27/22 23:21 07/29/22 08:58 Acetaminophen 325 Mg Tablet PO 650 mg Q6H PRN Administration Mild Pain (1-3) or Fever Hydrocodone Bitart/Acetaminophen 1 tab 07/27/22 23:21 Hydrocodone/Acetaminophen (*Crx) 5-325 Mg Tablet PO Q6H PRN Pain Rated 4-6 Amlodipine Besylate 5 mg 07/27/22 23:40 07/28/22 20:10 Amlodipine Besylate 5 Mg Tablet PO 5 mg HS COY Administration Dextrose 12.5 gm 07/27/22 23:20 Dextrose 50% 25 Gm/50 Ml Syringe IV PUSH PRN PRN Hypoglycemia Protocol Famotidine 20 mg 07/28/22 09:00 07/29/22 08:59 Famotidine 20 Mg Tablet PO 20 mg DAILY COY Administration Glucagon 1 mg 07/27/22 23:20 Glucagon For Inj 1 Mg Vial IM PRN PRN
[2022-07-29 16:58] LABS: Glucose Point of Care 195 mg/dl (65-105)
[2022-07-29] MEDS: levoFLOXacin 500 MG/D5W 100 ML 500 MG/100 ML BAG 100 MG IVPB (18:16)
[2022-07-29 20:00] VITALS: PULSE 90; RESP 16; O2SAT 98
[2022-07-29] MEDS: amLODIPine BESYLATE 5 MG TABLET PO (20:38)
[2022-07-29 21:28] VITALS: BP 160/75; PULSE 81; RESP 18; TEMP 36.6; O2SAT 97
[2022-07-30] VITALS (17 sets, daily range): BP systolic 121–187; BP diastolic 56–97; PULSE 75–97; RESP 12–18; TEMP 36.1–36.4; O2SAT 95–100
[2022-07-30 02:39] LABS: Glucose Point of Care 150 mg/dl (65-105)
[2022-07-30 07:39] LABS: Hematocrit 39.5 % (42.0-52.0); Hemoglobin 13.8 g/dL (14.0-18.0); Immature Platelet Fraction Pct 3.4 % (0.9-11.2); Mean Corpuscular HGB Conc 34.9 g/dl (32-36); Mean Corpuscular Hemoglobin 33.3 pg (26-34); Mean Corpuscular Volume 95.2 fl (80-100); Platelet Count Result 114 k/mm3 (150-375); Red Blood Count 4.15 M/mm3 (4.6-6.20); Red Cell Distribution Width 12.6 % (11.5-14.5); White Blood Count 5.1 K/mm3 (4.5-10.0)
[2022-07-30 07:44] LABS: Glucose Point of Care 157 mg/dl (65-105)
[2022-07-30 07:58] LABS: Alanine Aminotransferase 565 U/L (6-50); Albumin Level 3.6 g/dL (3.5-5.1); Alkaline Phosphatase 238 U/L (38-126); Anion Gap 4 mmol/L (8-16); Aspartate Amino Transferase 368 U/L (17-59); Bilirubin,Total 4.4 mg/dL (0.2-1.3); Blood Urea Nitrogen 8 mg/dL (9-20); Calcium 8.3 mg/dL (8.4-10.2); Carbon Dioxide 27 mmol/L (22-30); Chloride 102 mmol/L (98-107); Estimated CRCL calculation 98 ml/min; Estimated Glomerular Filt Rate > 60; Glucose 142 mg/dL (65-110); Lipase 32 U/L (23-300); Potassium 3.3 mmol/L (3.4-5.0); Sodium 133 mmol/L (137-145)
[2022-07-30] MEDS: LACTATED RINGERS 1,000 ML 100 ML IV CONT ×2 (09:04→13:12)
[2022-07-30] MEDS: FAMOTIDINE 20 MG TABLET PO (09:05)
[2022-07-30] MEDS: MONTELUKAST SODIUM 10 MG TABLET PO (09:05)
[2022-07-30] MEDS: PANTOPRAZOLE 40 MG TABLET PO (09:05)
[2022-07-30] MEDS: IPRATROPIUM NASAL SPRAY 0.03% 15 ML BOTTLE 2 SPRAY NASAL (09:06)
--- NOTE | 2022-07-30 09:30 | P.PNIM_ITS ---
Progress Note: A&P Assessment and Plan (1) Choledocholithiasis: Code(s): K80.50 - Calculus of bile duct without cholangitis or cholecystitis without obstruction Status: Acute Assessment and Plan: * Presented with ongoing epigastric pain for couple of days with associated fever, nausea, and decreased appetite * Appreciate gastroenterology consultation * Symptoms felt to be most consistent with biliary colic and possible choledocholithiasis * ERCP 07/28/22 removed stone and sludge, repeat scheduled for today due to increasing liver enzymes * Diet per GI * General surgery consulted * Cholecystectomy planned for tomorrow 07/31/22 hopfully * Continue with IV fluids * Continue IV Levaquin * Patient remains afebrile this admission (2) Transaminitis: Code(s): R74.01 - Elevation of levels of liver transaminase levels Status: Acute Assessment and Plan: * Likely secondary to suspected choledocholithiasis as noted above * Total bilirubin continues to rise and currently at 4.4 * AST and ALT currently 368/565 which is trending up * ERCP ordered for today * Continue to monitor LFTs (3) Hyperlipidemia: Qualifiers: Hyperlipidemia type: unspecified Qualified Code(s): E78.5 - Hyperlipidemia, unspecified Code(s): E78.5 - Hyperlipidemia, unspecified Status: Acute Assessment and Plan: Atorvastatin will be held given elevated LFTs (4) Gastroesophageal reflux disease: Code(s): K21.9 - Gastro-esophageal reflux disease without esophagitis Status: Acute Assessment and Plan: Patient complains of acid reflux * Will give IV pantoprazole while NPO * Continue home p.o. pantoprazole on famotidine when able to tolerate p.o. meds (5) Obstructive sleep apnea treated with BiPAP: Code(s): G47.33 - Obstructive sleep apnea (adult) (pediatric) Status: Acute Assessment and Plan: Continue home BiPAP (6) Prediabetes: Code(s): R73.03 - Prediabetes Status: Acute Assessment and Plan: Last A1c reportedly 5.9. Blood sugars have been well controlled * Continue with Accu-Cheks q.6 hours with hypoglycemic protocol * A1c 6.0 * stable * Glucose this am 131 (7) Abnormal urinalysis: Code(s): R82.90 - Unspecified abnormal findings in urine Status: Acute Assessment and Plan: * UA is slightly abnormal, however patient is asymptomatic * Urine culture grew enterococcus * Continue IV Levaquin and vanc Time Spent With Patient Time with patient: Greater than 35 minutes Subjective Date/time seen: 07/30/22929 Interval history: 07/30/22929 Patient stated that he was doing okay. I did talk to him about his labs and when I stated that his liver enzymes have when up he stated that he felt like he knew there was something not right. He currently denies any chest pain, shortness a breath, nausea or vomiting. He does still have some slight pain however seems to be mild at this time. did talk to Dr. Adam who is take the patient for an ERCP and surgery is going to try to put him on the schedule for tomorrow. 07/29/22899 Patient is doing ok today. He stated that he is feeling better, however, is still having some epigastric pain. [email or web address]
--- NOTE | 2022-07-30 09:30 | PM.IMPN ---
Progress Note: A&P Assessment and Plan (1) Choledocholithiasis: Code(s): K80.50 - Calculus of bile duct without cholangitis or cholecystitis without obstruction Status: Acute Assessment and Plan: Presented with ongoing epigastric pain for couple of days with associated fever, nausea, and decreased appetite Appreciate gastroenterology consultation Symptoms felt to be most consistent with biliary colic and possible choledocholithiasis ERCP 07/28/22 removed stone and sludge, repeat scheduled for today due to increasing liver enzymes Diet per GI General surgery consulted Cholecystectomy planned for tomorrow 07/31/22 hopfully Continue with IV fluids Continue IV Levaquin Patient remains afebrile this admission (2) Transaminitis: Code(s): R74.01 - Elevation of levels of liver transaminase levels Status: Acute Assessment and Plan: Likely secondary to suspected choledocholithiasis as noted above Total bilirubin continues to rise and currently at 4.4 AST and ALT currently 368/565 which is trending up ERCP ordered for today Continue to monitor LFTs (3) Hyperlipidemia: Qualifiers: Hyperlipidemia type: unspecified Qualified Code(s): E78.5 - Hyperlipidemia, unspecified Code(s): E78.5 - Hyperlipidemia, unspecified Status: Acute Assessment and Plan: Atorvastatin will be held given elevated LFTs (4) Gastroesophageal reflux disease: Code(s): K21.9 - Gastro-esophageal reflux disease without esophagitis Status: Acute Assessment and Plan: Patient complains of acid reflux Will give IV pantoprazole while NPO Continue home p.o. pantoprazole on famotidine when able to tolerate p.o. meds (5) Obstructive sleep apnea treated with BiPAP: Code(s): G47.33 - Obstructive sleep apnea (adult) (pediatric) Status: Acute Assessment and Plan: Continue home BiPAP (6) Prediabetes: Code(s): R73.03 - Prediabetes Status: Acute Assessment and Plan: Last A1c reportedly 5.9. Blood sugars have been well controlled Continue with Accu-Cheks q.6 hours with hypoglycemic protocol A1c 6.0 stable Glucose this am 131 (7) Abnormal urinalysis: Code(s): R82.90 - Unspecified abnormal findings in urine Status: Acute Assessment and Plan: UA is slightly abnormal, however patient is asymptomatic Urine culture grew enterococcus Continue IV Levaquin and vanc Time Spent With Patient Time with patient: Greater than 35 minutes Subjective Date/time seen: 07/30/22929 Interval history: 07/30/22929 Patient stated that he was doing okay. I did talk to him about his labs and when I stated that his liver enzymes have when up he stated that he felt like he knew there was something not right. He currently denies any chest pain, shortness a breath, nausea or vomiting. He does still have some slight pain however seems to be mild at this time. did talk to Dr. Adam who is take the patient for an ERCP and surgery is going to try to put him on the schedule for tomorrow. 07/29/22899 Patient is doing ok today. He stated that he is feeling better, however, is still having some epigastric pain. patient did state that he has had about 3 episodes over the last year. He stated that his episodes do last about 3-4 days. He denies any chest pain, shortness a breath, vomiting, diarrhea, constipation. Patient has been able to eat and tolerate some clear liquids. Did consult surgery at this time for a cholecystectomy. 07/28/2022 11:55 Osvaldo Zimmerman is a 67-year-old male with a history of MARCELLA, hyperlipidemia, GERD, BPH, hypertension, and prediabetes who is seen in follow-up for suspected choledocholithiasis. He is feeling well today. He has a slight mid abdominal pain which she rates as 3/10. Last night he
--- NOTE | 2022-07-30 10:48 | WPDANESEPPF ---
Anes - Initial Pre Proc Eval Procedure: Operation Date: 07/28/22 13:00 Proposed Procedures p Endoscopic Retro Cholangiopancreatogram - Reji Adam MD Operation Date: 07/30/22 14:00 Proposed Procedures p Endoscopic Retro Cholangiopancreatogram - Reji Adam MD Operation Date: 07/30/22 14:30 Proposed Procedures p Laparoscopic Cholecystectomy - Shameka Sylvester MD Date/Time: 07/30/22 10:48 Surgeon: Mara Marie PA-C Pre Op Diagnosis: Transaminitis/Hyperbilirubinemia/RUQ Pain Patient Data Age: 67 Gender: M Height: 1.91 m Weight: 121.7 kg Last Vital Signs Temp 36.4 C L 07/30/22 05:26 Pulse 75 07/30/22 05:26 Resp 18 07/30/22 05:26 BP 121/56 L 07/30/22 05:26 Pulse Ox 97 07/30/22 05:26 O2 Del Method Room Air 07/29/22 20:00 O2 Flow Rate 4 07/28/22 14:16 Allergies Allergy/AdvReac Type Severity Reaction Status Date / Time Penicillins Allergy Mild pt does Verified 07/28/22 12:44 not recall Home Medications Medication Instructions Recorded Confirmed Type calcium carbonate 600 mg calcium 600 mg PO DAILY 07/19/19 07/27/22 History (1,500 mg) tablet (Calcium) ipratropium bromide 21 mcg (0.03 2 spray intranasal BID 07/19/19 07/27/22 History %) nasal spray krill 1,000 mg-omega-3 170 mg-dha 1 cap PO DAILY 07/19/19 07/27/22 History 50 mg-epa 80 [id number]-lelgv capsule (krill oil) montelukast 10 mg tablet 10 mg PO DAILY 07/19/19 07/27/22 History (Singulair) saw palmetto 160 mg capsule 160 mg PO DAILY 07/19/19 07/27/22 History omeprazole 20 mg capsule,delayed 40 mg PO DAILY 07/20/19 07/27/22 History release naproxen sodium 220 mg capsule 220 mg PO DAILY 01/31/20 07/27/22 History famotidine 20 mg tablet 20 mg PO DAILY 07/22/20 07/27/22 History fexofenadine 180 mg tablet 180 mg PO DAILY 04/18/21 07/27/22 History fluticasone propionate 50 2 spray intranasal DAILY #16 grams 05/19/22 07/27/22 Rx mcg/actuation nasal spray,suspension metformin 500 mg tablet 500 mg PO DAILY #90 tabs 06/12/22 07/27/22 Rx amlodipine 5 mg tablet 5 mg PO DAILY 07/27/22 07/27/22 History atorvastatin 20 mg tablet 20 mg DAILY 07/27/22 07/27/22 History metaxalone 800 mg tablet 200 mg DAILY PRN Muscle Spasm 07/27/22 07/27/22 History Laboratory Tests 07/29/22 07/29/22 07/30/22 11:42 16:41 02:34 WBC RBC Hgb Hct MCV MCH MCHC RDW Plt Count MPV % Immature Plt Fraction Sodium Potassium Chloride Carbon Dioxide Anion Gap BUN Creatinine Estim Creat Clear Calc Estimated GFR Glucose POC Capillary Glucose 185 mg/dl H mg/dl 195 mg/dl H mg/dl 150 mg/dl H mg/dl (65-105) (65-105) (65-105) Calcium Total Bilirubin AST ALT Alkaline Phosphatase Total Protein Albumin Lipase 07/30/22 07/30/22 07/30/22 07:07 07:07 07:33 WBC 5.1 K/mm3 K/mm3 (4.5-10.0) RBC 4.15 M/mm3 L M/mm3 (4.6-6.20) Hgb 13.8 g/dL L g/dL (14.0-18.0) Hct 39.5 % L % (42.0-52.0) MCV 95.2 fl fl (80-100) MCH 33.3 pg pg (26-34) MCHC 34.9 g/dl g/dl (32-36) RDW 12.6 % % (11.5-14.5) Plt Count 114 k/mm3 L k/mm3 (150-375) MPV 10.0 fl fl (7.4-10.4) % Immature Plt Fraction 3.4 % % (0.9-11.2) Sodium 133 mmol/L L mmol/L (137-145) Potassium 3.3 mmol/L L mmol/L (3.4-5.0) Chloride 102 mmol/L mmol/L (98-107) Carbon Dioxide 27 mmol/L mmol/L (22-30) Anion Gap 4 mmol/L L mmol/L (8-16) BUN 8 mg/dL L mg/dL (9-20) Creatinine 0.90 mg/dL mg/dL (0.7-1.3) Estim Creat
[2022-07-30 11:16] LABS: Glucose Point of Care 140 mg/dl (65-105)
[2022-07-30 13:15] LABS: Glucose Point of Care 125 mg/dl (65-105)
--- NOTE | 2022-07-30 13:28 | PM.PNGS ---
Progress Note: A&P Assessment and Plan (1) Choledocholithiasis: Code(s): K80.50 - Calculus of bile duct without cholangitis or cholecystitis without obstruction Status: Acute Assessment and Plan: LFTs up again today with bilirubin up to 4.4, concerning for retained common duct stone or sludge causing an obstruction. Will hold off on surgery today. Discussed with Hospitalist who also spoke with GI. GI planning ERCP today, will await results and plan to repeat labs tomorrow. Will continue to follow along to plan most optimal timing for cholecystectomy. (2) Transaminitis: Code(s): R74.01 - Elevation of levels of liver transaminase levels Status: Acute Assessment and Plan: LFTs up today. See plan above. ERCP scheduled today. Plan I have discussed the patient's case and plan of care with Dr. Sylvester. Subjective Subjective Date/Time Seen: 07/30/22 10:28 Patient reports: no new complaints, feels better, pain is less and afebrile Interval history: Patient feeling better today. His abdominal pain and tenderness continues to improve, denies any pain at this time. No nausea or vomiting. No other complaints or acute changes overnight. Exam Const: General: comfortable, no acute distress and awake Orientation/consciousness: patient oriented x3 GI: Inspection: non-distended GI Palp: Yes Soft to palpation, Yes Tenderness to palpation present (GI) (very mild, improved, TTP in RUQ), No Guarding due to palpation present (GI) and No Rebound tenderness present Auscultation: normal bowel sounds Extrem: General: normal to inspection and no edema Psych: Mental Status: mental status grossly normal Objective Data Vital Signs Vital Signs: Vital Signs - 24 hr 07/29/22 14:00 07/29/22 20:00 07/29/22 21:28 Temperature 97.6 F 97.9 F Pulse Rate 90 90 81 Respiratory Rate 16 16 18 Blood Pressure 143/80 H 160/75 H Pulse Oximetry 98 98 97 Oxygen Delivery Room Air 07/30/22 05:26 07/30/22 08:00 07/30/22 13:05 Temperature 97.5 F L 96.9 F L Pulse Rate 75 75 76 Respiratory Rate 18 18 18 Blood Pressure 121/56 L 126/80 Pulse Oximetry 97 97 97 Oxygen Delivery Room Air Room Air Intake/Output Intake/Output: Intake & Output 07/27/22 07/28/22 07/29/22 07/30/22 23:59 23:59 23:59 23:59 Intake Total 1100 2560 4320 1600 Balance 1100 2560 4320 1600 Meds/Results Medications: Active Medications Generic Name Dose Route Start Last Admin Trade Name Freq PRN Reason Stop Dose Admin Acetaminophen 650 mg 07/27/22 23:21 07/29/22 08:58 Acetaminophen 325 Mg Tablet PO 650 mg Q6H PRN Administration Mild Pain (1-3) or Fever Hydrocodone Bitart/Acetaminophen 1 tab 07/27/22 23:21 Hydrocodone/Acetaminophen (*Crx) 5-325 Mg Tablet PO Q6H PRN Pain Rated 4-6 Amlodipine Besylate 5 mg 07/27/22 23:40 07/29/22 20:38 Amlodipine Besylate 5 Mg Tablet PO 5 mg HS COY Administration Dextrose 12.5 gm 07/27/22 23:20 Dextrose 50% 25 Gm/50 Ml Syringe IV PUSH PRN PRN Hypoglycemia Protocol Famotidine 20 mg 07/28/22 09:00 07/30/22 09:05 Famotidine 20 Mg Tablet PO 20 mg DAILY COY Administration Glucagon 1 mg 07/27/22 23:20 Glucagon For Inj 1 Mg Vial IM PRN PRN Hypoglycemia Protocol Glucose 15 gm 07/27/22 23:20 Glucose Oral Gel 15 Gm Of Glucse In 37.5 Gm Tube PO PRN PRN Hypoglycemia Protocol Levofloxacin/Dextrose 500 mg in 100 mls @ 100 mls/hr 07/27/22 18:00 07/29/22 18:16 Levaquin 500 Mg/D5w 100 Ml IVPB 100 mls/hr Q24H COY Administration Dextrose 1,000 mls @ 100 mls/hr 07/27/22 23:20 Dextrose 5% 1,000 Ml IVPB PRN PRN Hypoglycemia Protocol Lactated Ringer's 1,000 mls @ 100 mls/hr 07/27/22 23:25 07/30/22 13:12 Lr - Lactated Ringers Iv IV CONT 100 mls/hr .Q10H COY Administration Vancomycin HCl 1,750 mg in 500 mls @ 250 mls/hr 07/29/22 15:00 07/30/22 02:20
[2022-07-30] MEDS: LACTATED RINGERS 1,000 ML 150 ML IV CONT ×3 (14:00→15:53)
[2022-07-30 16:00] LABS: Glucose Point of Care 186 mg/dl (65-105)
[2022-07-30] MEDS: fentaNYL CITRATE INJ (*CRX) 100 MCG/2 ML VIAL 25 MCG IV PUSH ×2 (16:24→16:50)
--- NOTE | 2022-07-30 16:39 | SUR.PHASEII ---
Patient complaining of 8/10 abdominal pain. Orders for stat CT scan from Dr Adam and fentanyl.
--- NOTE | 2022-07-30 17:25 | PC.NURSE ---
Pt remains in GI lab at this time post procedure.
--- NOTE | 2022-07-30 17:58 | SUR.PHASEII ---
1758 Dr. Vazquez here to see patient.
--- NOTE | 2022-07-30 18:10 | PC.NURSE ---
Pt returned from GI lab post procedure. Resting comfortably per bed without complaint. Family at bedside.
[2022-07-30] MEDS: levoFLOXacin 500 MG/D5W 100 ML 500 MG/100 ML BAG 100 MG IVPB (18:24)
[2022-07-30 18:36] LABS: Glucose Point of Care 171 mg/dl (65-105)
--- NOTE | 2022-07-30 18:59 | PM.CNGS ---
Assessment and Plan Assessment and plan (1) Duodenal perforation: Code(s): K63.1 - Perforation of intestine (nontraumatic) Status: Acute Assessment and Plan: I reviewed patient's films in detail with Radiology, Dr. Mullen. I discussed the patient with Dr. Adam. I have reviewed recent literature regarding post ERCP perforations. It appears this is a Stapfer type 2 perforation which is a retroperitoneal type of duodenal or periampullary perforation. 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 One study sided showed that only 7% of these type of perforations require surgery. Will keep patient NPO, broad-spectrum antibiotics, analgesics and follow clinical exam labs and imaging. I would be surprised if the patient does not show evidence of acute pancreatitis. All oral lipase tonight and another 1 in the morning. TPN may well be needed as well. 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 discussed with who had seen the patient for gallstones earlier. The pneumothorax and pneumomediastinum are related to the retroperitoneal perforation and do not at this point require any particular treatment. (2) Cholelithiasis with choledocholithiasis: Code(s): K80.70 - Calculus of gallbladder and bile duct without cholecystitis without obstruction Status: Chronic Assessment and Plan: It appears the stones have been removed. History of Present Illness Consult details Consult date: 07/30/22 Reason for consult: other ( Post ERCP duodenal perforation) Requesting physician: Pio Mendez APN-C Narrative: patient is a 67-year-old man with common bile duct stones. He had an ERCP yesterday that was successful but some small residual stones were left that would likely pass. Unfortunately, the patient had rising LFTs and evidence of persistent biliary obstruction. He was taken back to endoscopy today and a 2nd ER for CP was performed. Following this procedure he had severe abdominal pain and CT scan of the abdomen and pelvis showed evidence of a duodenal perforation. I spoke with the endoscopist, Dr. Adam. There was a large difficult stone that was removed today. Patient was seen in endoscopy and was still having some pain but less than before. He has been hemodynamically stable. He does not have any nausea or emesis. He is seen now for post ERCP perforation. Review of Systems Review of Systems: All systems reviewed & are unremarkable except as noted in HPI and below ( HPI and those items noted below) Constitutional: Constitutional: Denies chills and Denies fever(s) Cardiovascular: Cardiovascular: Denies chest pain, Denies diaphoresis, Denies dyspnea and Denies paroxysmal nocturnal dyspnea Respiratory: Respiratory: Denies chest congestion, Denies cough and Denies dyspnea Integumentary/Breasts: Skin/Breast: Denies lesions and Denies rash PMFSH Past Medical History Medical History Benign essential hypertension Benign prostatic hyperplasia Gastroesophageal reflux disease Mixed hyperlipidemia Obstructive sleep apnea treated with BiPAP Prediabetes Surgical History Surgical History History of cataract extraction History of cervical spinal surgery History of colonoscopy with polypectomy History of skin graft Family History Family History Sibling Family history of suicide, Onset Age: 25 Patient's brother is Father Cerebrovascular accident Patient's father is Mother Family history of chronic obstructive pulmonary disease Patient's mother is Other Diabetes mellitus Family history of arthritis Family history of cardiovascular disease Hypertension Social History Social History (Reviewed 07/30/22 @ 19:
[2022-07-30 19:24] LABS: Lipase 98 U/L (23-300)
[2022-07-30 19:28] LABS: CRP 5.2 mg/dL (<1.0)
[2022-07-30] MEDS: IBUPROFEN IV 800 MG/200 ML 800 MG/200 ML BAG 400 MG IVPB (19:50)
[2022-07-30] MEDS: PANTOPRAZOLE SODIUM IV 40 MG VIAL IV PUSH (19:50)
[2022-07-30] MEDS: SODIUM CHLORIDE 0.9% IV 1,000 ML 999 ML IV CONT (19:50)
[2022-07-30] MEDS: SODIUM CHLORIDE 0.9% IV 1,000 ML 125 ML IV CONT (21:26)
[2022-07-30] MEDS: metroNIDAZOLE 500 MG/ISO 100ML 500 MG/100 ML BAG 100 MG IVPB (23:32)
[2022-07-31] MEDS: IBUPROFEN IV 800 MG/200 ML 800 MG/200 ML BAG 400 MG IVPB ×4 (01:59→20:24)
[2022-07-31 02:40] VITALS: BP 149/73; PULSE 88; RESP 20; TEMP 36.6; O2SAT 96
[2022-07-31] MEDS: metroNIDAZOLE 500 MG/ISO 100ML 500 MG/100 ML BAG 100 MG IVPB ×3 (05:19→18:10)
--- NOTE | 2022-07-31 06:42 | WPDGIPROGNO ---
Progress Note: A&P Assessment and Plan (1) Epigastric pain: Code(s): R10.13 - Epigastric pain Status: Inactive Assessment and Plan: It seems that his pain is due to recurrent episodes of biliary colic which have not been able to be proven with imaging. 07/29/2022 he is having very little pain today. He describes what he calls heartburn in the epigastric area. 07/31/22 he was having a fair bit of pain post ERCP. He states the pain is better today and controlled with the analgesics. 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 (2) Transaminitis: Code(s): R74.01 - Elevation of levels of liver transaminase levels Status: Acute Assessment and Plan: As his enzymes have been jumping up with the to tack, he undoubtedly has choledocholithiasis. I discussed with him ERCP. I explained how the procedure is done. The possible risks such as bleeding, perforation or pancreatitis and that complications could result in surgery and rarely be fatal. 07/29/2022 his transaminases are about the same as they had been. (3) Hyperbilirubinemia: Code(s): E80.6 - Other disorders of bilirubin metabolism Status: Acute Assessment and Plan: This is the 1st time his bilirubin has been elevated. I explained that he has stones or sludge in the distal common bile duct. There is a risk of this turning into pancreatitis but so far does not appear that is a problem. Bilirubin remains 3.6. If it does not drop, I would consider MRCP to rule out persistent common bile duct stone Because of increased bilirubin yesterday ERCP was repeated revealing impacted stone in the mid common bile duct. Having been able to finally remove that his bilirubin should be lower today. post ERCP, the bilirubin is coming down. (4) BMI 33.0-33.9,adult: Code(s): Z68.33 - Body mass index [BMI] 33.0-33.9, adult Status: Acute (5) Cholelithiasis with choledocholithiasis: Code(s): K80.70 - Calculus of gallbladder and bile duct without cholecystitis without obstruction Status: Chronic Assessment and Plan: he has been seen by surgery and the plan is to perform a cholecystectomy, assuming his LFTs improved. If not, a cholangiogram could be done at the time surgery. 07/31/2022 Dr. Vazquez saw the patient immediately after his ERCP and address the problem. we have started additional antibiotics. Input and guidance from surgery is greatly appreciated. At this point it appears that he will be able to be managed conservatively Plan Subjective Date/time seen: 07/31/22 06:42 he states that he got some sleep last night, a few hours. He believes that his pain is much better today. He feels better if he is not moving around. I explained him that he needs gut rest for a couple of days to help seal off the perforation. he is not having any more pleuritic pain. He questioned whether he would have a cholecystectomy this admission. I told Him that is up to the surgeons. Exam Const: General: cooperative, healthy appearing, comfortable, no acute distress, alert, awake, well nourished and overweight Nutritional Appearance: overweight Orientation/consciousness: patient oriented x3 HENMT: Head: normocephalic and atraumatic Mouth: Yes Normal oral and palatal mucosa present Eyes: Conjunctivae: conjunctivae normal Pupils: Equal, round and reactive pupils present EOM: EOMs intact bilaterally Neck: Neck: normal visual inspection, no lymphadenopathy and nontender Resp: Effort & Inspection: normal respiratory effort Auscultation: clear to auscultation bilaterally Cardio: Rate: regular rate Rhythm: regular rhythm Heart sounds: no gallops, no murmurs and no rubs GI: Inspection: normal to inspection, non-distended and obesity GI Palp: Yes Soft to palpation, Yes Tenderness to p
[2022-07-31 07:27] LABS: Basophils Absolute Auto 0.1 K/mm3 (0.0-0.1); Basophils Percent Auto 0.4 % (0.2-1.2); Eosinophils Absolute Auto 0.1 K/mm3 (0-0.3); Hematocrit 40.4 % (42.0-52.0); Hemoglobin 14.2 g/dL (14.0-18.0); Immature Granulocyte Absolute 0.07 K/mm3 (0.00-0.031); Immature Granulocyte Percent A 0.6 % (0-0.5); Lymphocytes Percent Auto 13.5 % (18.3-44.2); Mean Corpuscular HGB Conc 35.1 g/dl (32-36); Mean Corpuscular Hemoglobin 33.3 pg (26-34); Mean Corpuscular Volume 94.8 fl (80-100); Mean Platelet Volume 9.7 fl (7.4-10.4); Monocytes Absolute Auto 1.1 K/mm3 (0.1-0.6); Monocytes Percent Auto 8.5 % (2.6-8.5); Neutrophils Absolute Auto 9.6 K/mm3 (1.3-6.7); Platelet Count Result 115 k/mm3 (150-375); Red Blood Count 4.26 M/mm3 (4.6-6.20); Red Cell Distribution Width 12.7 % (11.5-14.5); White Blood Count 12.6 K/mm3 (4.5-10.0)
[2022-07-31 07:41] LABS: Alanine Aminotransferase 439 U/L (6-50); Albumin Level 3.6 g/dL (3.5-5.1); Alkaline Phosphatase 236 U/L (38-126); Anion Gap 7 mmol/L (8-16); Aspartate Amino Transferase 138 U/L (17-59); Blood Urea Nitrogen 10 mg/dL (9-20); CRP 4.9 mg/dL (<1.0); Calcium 8.3 mg/dL (8.4-10.2); Carbon Dioxide 26 mmol/L (22-30); Chloride 108 mmol/L (98-107); Estimated CRCL calculation 109 ml/min; Estimated Glomerular Filt Rate > 60; Glucose 131 mg/dL (65-110); Lipase 82 U/L (23-300); Potassium 3.5 mmol/L (3.4-5.0); Sodium 141 mmol/L (137-145)
[2022-07-31 08:00] VITALS: PULSE 88; RESP 20; O2SAT 96
[2022-07-31 08:19] LABS: Glucose Point of Care 144 mg/dl (65-105)
[2022-07-31 08:25] VITALS: BP 161/68; PULSE 89; RESP 16; TEMP 36.7; O2SAT 98
--- NOTE | 2022-07-31 08:45 | P.PNIM_ITS ---
Progress Note: A&P Assessment and Plan (1) Choledocholithiasis: Code(s): K80.50 - Calculus of bile duct without cholangitis or cholecystitis without obstruction Status: Acute Assessment and Plan: * Presented with ongoing epigastric pain for couple of days with associated fever, nausea, and decreased appetite * Appreciate gastroenterology consultation * Symptoms felt to be most consistent with biliary colic and possible choledocholithiasis * ERCP 07/28/22 removed stone and sludge, repeat scheduled for today due to increasing liver enzymes * Diet per GI * General surgery consulted * Cholecystectomy planned for tomorrow 07/31/22 hopfully * Continue with IV fluids * Continue IV Levaquin, add flagyl * Patient remains afebrile this admission (2) Transaminitis: Code(s): R74.01 - Elevation of levels of liver transaminase levels Status: Acute Assessment and Plan: * Likely secondary to suspected choledocholithiasis as noted above * Total bilirubin continues to rise and currently at 2.0 * AST and ALT currently 138/439 * ERCP ordered for today * Continue to monitor LFTs (3) Hyperlipidemia: Qualifiers: Hyperlipidemia type: unspecified Qualified Code(s): E78.5 - Hyperlipidemia, unspecified Code(s): E78.5 - Hyperlipidemia, unspecified Status: Acute Assessment and Plan: Atorvastatin will be held given elevated LFTs (4) Gastroesophageal reflux disease: Code(s): K21.9 - Gastro-esophageal reflux disease without esophagitis Status: Acute Assessment and Plan: Patient complains of acid reflux * Will give IV pantoprazole while NPO * Continue home p.o. pantoprazole on famotidine when able to tolerate p.o. meds (5) Obstructive sleep apnea treated with BiPAP: Code(s): G47.33 - Obstructive sleep apnea (adult) (pediatric) Status: Acute Assessment and Plan: Continue home BiPAP (6) Prediabetes: Code(s): R73.03 - Prediabetes Status: Acute Assessment and Plan: Last A1c reportedly 5.9. Blood sugars have been well controlled * Continue with Accu-Cheks q.6 hours with hypoglycemic protocol * A1c 6.0 * stable * Glucose this am 131 (7) Duodenal perforation: Code(s): K63.1 - Perforation of intestine (nontraumatic) Status: Acute Assessment and Plan: * Noted after ERCP * Currently stable * TPN and bowel rest ordered * Continue to monitor pain * Adjust therapy as indicated (8) UTI (urinary tract infection): Code(s): N39.0 - Urinary tract infection, site not specified Status: Acute Assessment and Plan: * UA is slightly abnormal, however patient is asymptomatic * Urine culture grew enterococcus * Continue IV Levaquin and vanc Time Spent With Patient Time with patient: Greater than 35 minutes Subjective Date/time seen: 07/31/22844 Interval history: 07/31/22844 patient was lying in bed and stated that he felt pretty good today. He denies having any pain however did state that he was having a little bit of pain but not as bad as it was. He denies any chest pain, shortness a breath, nausea, vomiting, diarrhea, constipation. Dr. Vaughan
--- NOTE | 2022-07-31 08:45 | PM.IMPN ---
Progress Note: A&P Assessment and Plan (1) Choledocholithiasis: Code(s): K80.50 - Calculus of bile duct without cholangitis or cholecystitis without obstruction Status: Acute Assessment and Plan: Presented with ongoing epigastric pain for couple of days with associated fever, nausea, and decreased appetite Appreciate gastroenterology consultation Symptoms felt to be most consistent with biliary colic and possible choledocholithiasis ERCP 07/28/22 removed stone and sludge, repeat scheduled for today due to increasing liver enzymes Diet per GI General surgery consulted Cholecystectomy planned for tomorrow 07/31/22 hopfully Continue with IV fluids Continue IV Levaquin, add flagyl Patient remains afebrile this admission (2) Transaminitis: Code(s): R74.01 - Elevation of levels of liver transaminase levels Status: Acute Assessment and Plan: Likely secondary to suspected choledocholithiasis as noted above Total bilirubin continues to rise and currently at 2.0 AST and ALT currently 138/439 ERCP ordered for today Continue to monitor LFTs (3) Hyperlipidemia: Qualifiers: Hyperlipidemia type: unspecified Qualified Code(s): E78.5 - Hyperlipidemia, unspecified Code(s): E78.5 - Hyperlipidemia, unspecified Status: Acute Assessment and Plan: Atorvastatin will be held given elevated LFTs (4) Gastroesophageal reflux disease: Code(s): K21.9 - Gastro-esophageal reflux disease without esophagitis Status: Acute Assessment and Plan: Patient complains of acid reflux Will give IV pantoprazole while NPO Continue home p.o. pantoprazole on famotidine when able to tolerate p.o. meds (5) Obstructive sleep apnea treated with BiPAP: Code(s): G47.33 - Obstructive sleep apnea (adult) (pediatric) Status: Acute Assessment and Plan: Continue home BiPAP (6) Prediabetes: Code(s): R73.03 - Prediabetes Status: Acute Assessment and Plan: Last A1c reportedly 5.9. Blood sugars have been well controlled Continue with Accu-Cheks q.6 hours with hypoglycemic protocol A1c 6.0 stable Glucose this am 131 (7) Duodenal perforation: Code(s): K63.1 - Perforation of intestine (nontraumatic) Status: Acute Assessment and Plan: Noted after ERCP Currently stable TPN and bowel rest ordered Continue to monitor pain Adjust therapy as indicated (8) UTI (urinary tract infection): Code(s): N39.0 - Urinary tract infection, site not specified Status: Acute Assessment and Plan: UA is slightly abnormal, however patient is asymptomatic Urine culture grew enterococcus Continue IV Levaquin and vanc Time Spent With Patient Time with patient: Greater than 35 minutes Subjective Date/time seen: 07/31/22844 Interval history: 07/31/22844 patient was lying in bed and stated that he felt pretty good today. He denies having any pain however did state that he was having a little bit of pain but not as bad as it was. He denies any chest pain, shortness a breath, nausea, vomiting, diarrhea, constipation. Dr. Sylvester came in and is wanting to start patient on TPN. PICC line has been ordered. 07/30/22929 Patient stated that he was doing okay. I did talk to him about his labs and when I stated that his liver enzymes have when up he stated that he felt like he knew there was something not right. He currently denies any chest pain, shortness a breath, nausea or vomiting. He does still have some slight pain however seems to be mild at this time. did talk to Dr. Adam who is take the patient for an ERCP and surgery is going to try to put him on the schedule for tomorrow. 07/29/22899 Patient is doing ok today. He stated that he is feeling better, however, is
[2022-07-31] MEDS: IPRATROPIUM NASAL SPRAY 0.03% 15 ML BOTTLE 2 SPRAY NASAL ×2 (09:21→18:11)
[2022-07-31] MEDS: LACTATED RINGERS 1,000 ML 125 ML IV CONT (09:21)
[2022-07-31] MEDS: ENOXAPARIN 40 MG/0.4 ML SYRINGE SUB-Q (09:22)
[2022-07-31] MEDS: PANTOPRAZOLE SODIUM IV 40 MG VIAL IV PUSH (09:24)
[2022-07-31 09:35] LABS: Vancomycin Trough 7.2 ug/mL (10.0-20.0)
--- NOTE | 2022-07-31 10:19 | WPDANESPN ---
Anes - Prog Note Post-Op Date/Time: 07/31/22 10:19 Cardiovascular status: normal Respiratory status: normal Airway patency: baseline Mental status: baseline Post-Op hydration status: normal Vital Signs: Last Vital Signs Temp 36.6 C 07/31/22 02:40 Pulse 88 07/31/22 02:40 Resp 20 07/31/22 02:40 BP 149/73 H 07/31/22 02:40 Pulse Ox 96 07/31/22 02:40 O2 Del Method Room Air 07/30/22 20:00 O2 Flow Rate 4 07/28/22 14:16 Pain Score (VAS): 0 I/O: Intake & Output 07/30/22 07/31/22 07/31/22 23:59 07:59 15:59 Intake Total 200 300 Balance 200 300 Laboratory Tests 07/31/22 06:59 07/31/22 06:59 07/30/22 07/30/22 07/30/22 11:09 13:12 15:58 WBC RBC Hgb Hct MCV MCH MCHC RDW Plt Count MPV Immature Gran % (Auto) Neut % (Auto) Lymph % (Auto) [place] % (Auto) Eos % (Auto) Baso % (Auto) Lymph # (Auto) [place] # (Auto) Eos # (Auto) Baso # (Auto) Abs Immat Gran (auto) Absolute Neuts (auto) Absolute Nucleated RBC Nucleated RBC % Sodium Potassium Chloride Carbon Dioxide Anion Gap BUN Creatinine Estim Creat Clear Calc Estimated GFR Glucose POC Capillary Glucose 140 H 125 H 186 H Calcium Magnesium Total Bilirubin AST ALT Alkaline Phosphatase C-Reactive Protein Total Protein Albumin Lipase Vancomycin Trough 07/30/22 07/30/22 07/30/22 18:34 19:04 19:04 WBC RBC Hgb Hct MCV MCH MCHC RDW Plt Count MPV Immature Gran % (Auto) Neut % (Auto) Lymph % (Auto) [place] % (Auto) Eos % (Auto) Baso % (Auto) Lymph # (Auto) [place] # (Auto) Eos # (Auto) Baso # (Auto) Abs Immat Gran (auto) Absolute Neuts (auto) Absolute Nucleated RBC Nucleated RBC % Sodium Potassium Chloride Carbon Dioxide Anion Gap BUN Creatinine Estim Creat Clear Calc Estimated GFR Glucose POC Capillary Glucose 171 H Calcium Magnesium Total Bilirubin AST ALT Alkaline Phosphatase C-Reactive Protein 5.2 H Total Protein Albumin Lipase 98 Vancomycin Trough 07/31/22 07/31/22 07/31/22 06:59 06:59 08:13 WBC 12.6 H RBC 4.26 L Hgb 14.2 Hct 40.4 L MCV 94.8 MCH 33.3 MCHC 35.1 RDW 12.7 Plt Count 115 L MPV 9.7 Immature Gran % (Auto) 0.6 H Neut % (Auto) 76.0 H Lymph % (Auto) 13.5 L [place] % (Auto) 8.5 Eos % (Auto) 1.0 Baso % (Auto) 0.4 Lymph # (Auto) 1.70 [place] # (Auto) 1.1 H Eos # (Auto) 0.1 Baso # (Auto) 0.1 Abs Immat Gran (auto) 0.07 H Absolute Neuts (auto) 9.6 H Absolute Nucleated RBC 0.0 Nucleated RBC % 0.0 Sodium 141 Potassium 3.5 Chloride 108 H Carbon Dioxide 26 Anion Gap 7 L BUN 10 Creatinine 0.80 Estim Creat Clear Calc 109 Estimated GFR > 60 Glucose 131 H POC Capillary Glucose 144 H Calcium 8.3 L Magnesium 2.0 Total Bilirubin 2.0 H AST 138 H ALT 439 H Alkaline Phosphatase 236 H C-Reactive Protein 4.9 H Total Protein 6.0 L Albumin 3.6 Lipase 82 Vancomycin Trough 07/31/22 09:04 WBC RBC Hgb Hct MCV MCH MCHC RDW Plt Count MPV Immature Gran % (Auto) Neut % (Auto) Lymph % (Auto) [place] % (Auto) Eos % (Auto) Baso % (Auto) Lymph # (Auto) [place] # (Auto) Eos # (Auto) Baso # (Auto) Abs Immat Gran (auto) Absolute Neuts (auto) Absolute Nucleated RBC Nucleated RBC % Sodium Potassium Chloride Carbon Dioxide Anion Gap BUN Creatinine Estim Creat Clear Calc Estimated GFR Glucose POC Capillary Glucose Calcium Magnesium Total Bilirubin AST ALT Alkaline Phosphatase C-Reactive Protein Total Protein Albumin Lipase Vancomycin Trough 7.2 L Microbiology 07/27/22 09:58 Unspecified Urine Culture - Final
--- NOTE | 2022-07-31 11:01 | PM.PNGS ---
Progress Note: A&P Assessment and Plan (1) Cholelithiasis with choledocholithiasis: Code(s): K80.70 - Calculus of gallbladder and bile duct without cholecystitis without obstruction Status: Chronic Assessment and Plan: s/p ERCP x 2, follow labs/exams, will need interval cholecystectomy (2) Duodenal perforation: Code(s): K63.1 - Perforation of intestine (nontraumatic) Status: Acute Assessment and Plan: exam benign, cont to follow closely, will setup for PICC/TPN, IV abx Subjective Subjective Date/Time Seen: 07/31/22 11:01 feels better this am, pain ok when not moving around Review of Systems Review of Systems: All systems reviewed & are unremarkable except as noted in HPI and below Exam Const: General: cooperative, comfortable and no acute distress Chest: Chest palpation & inspection: normal inspection of the chest Resp: Effort & Inspection: normal respiratory effort Auscultation: clear to auscultation bilaterally Cardio: Rate: regular rate Rhythm: regular rhythm GI: Inspection: normal to inspection and distended GI Palp: Yes abdominal tenderness, Yes Soft to palpation, Yes Tenderness to palpation present (GI), No Guarding due to palpation present (GI) and No Rigid due to palpation Objective Data Vital Signs Vital Signs: Vital Signs - 24 hr 07/30/22 13:05 07/30/22 15:35 07/30/22 15:45 Temperature 36.1 C L Pulse Rate 76 95 88 Respiratory Rate 18 14 14 Blood Pressure 126/80 139/72 133/72 Pulse Oximetry 97 96 99 Oxygen Delivery Room Air Room Air Room Air 07/30/22 15:55 07/30/22 16:05 07/30/22 16:38 Temperature Pulse Rate 86 90 88 Respiratory Rate 14 14 12 Blood Pressure 139/74 144/82 H 159/93 H Pulse Oximetry 95 99 97 Oxygen Delivery Room Air Room Air Room Air 07/30/22 17:00 07/30/22 17:30 07/30/22 17:45 Temperature Pulse Rate 89 90 92 Respiratory Rate 15 14 13 Blood Pressure 160/91 H 157/82 H 159/81 H Pulse Oximetry 99 97 100 Oxygen Delivery Room Air Room Air Room Air 07/30/22 17:55 07/30/22 18:15 07/30/22 18:30 Temperature 36.1 C L 36.2 C L Pulse Rate 95 97 94 Respiratory Rate 13 16 18 Blood Pressure 160/84 H 187/80 H 158/78 H Pulse Oximetry 100 100 99 Oxygen Delivery Room Air 07/30/22 18:57 07/30/22 19:48 07/30/22 20:00 Temperature 36.4 C L 36.3 C L Pulse Rate 96 94 94 Respiratory Rate 16 18 18 Blood Pressure 162/97 H 167/80 H Pulse Oximetry 98 97 97 Oxygen Delivery Room Air 07/31/22 02:40 Temperature 36.6 C Pulse Rate 88 Respiratory Rate 20 Blood Pressure 149/73 H Pulse Oximetry 96 Oxygen Delivery Intake/Output Intake/Output: Intake & Output 07/28/22 07/29/22 07/30/22 07/31/22 23:59 23:59 23:59 23:59 Intake Total 2560 4420 3700 300 Balance 2560 4420 3700 300 Meds/Results Medications: Active Medications Generic Name Dose Route Start Last Admin Trade Name Freq PRN Reason Stop Dose Admin Dextrose 12.5 gm 07/27/22 23:20 Dextrose 50% 25 Gm/50 Ml Syringe IV PUSH PRN PRN Hypoglycemia Protocol Enoxaparin Sodium 40 mg 07/31/22 09:00 07/31/22 09:22 Enoxaparin 40 Mg/0.4 Ml Syringe SUB-Q 40 mg DAILY COY Administration Glucagon 1 mg 07/27/22 23:20 Glucagon For Inj 1 Mg Vial IM PRN PRN Hypoglycemia Protocol Glucose 15 gm 07/27/22 23:20 Glucose Oral Gel 15 Gm Of Glucse In 37.5 Gm Tube PO PRN PRN Hypoglycemia Protocol Levofloxacin/Dextrose 500 mg in 100 mls @ 100 mls/hr 07/27/22 18:00 07/30/22 18:24 Levaquin 500 Mg/D5w 100 Ml IVPB 100 mls/hr Q24H COY Administration Dextrose 1,000 mls @ 100 mls/hr 07/27/22 23:20 Dextrose 5% 1,000 Ml IVPB PRN PRN Hypoglycemia Protocol Ibuprofen 800 mg in 200 mls @ 400 mls/hr 07/30/22 20:00 07/31/22 09:21 Caldolor 800 Mg/200 Ml IVPB 400 mls/hr Q6H COY Administration Metronidazole 500 mg in 100 mls @ 100 mls/hr 07/31/22 00:00 07/31/22 05:19 Anthony
[2022-07-31 11:47] VITALS: BMI 33.3
[2022-07-31 12:01] LABS: Partial Thromboplastin Time 39.5 SECONDS (22.3-36.8)
[2022-07-31 12:41] LABS: Glucose Point of Care 174 mg/dl (65-105)
[2022-07-31 13:04] LABS: Transferrin 144 mg/dL (206-381)
[2022-07-31] MEDS: AMINO ACIDS 5%/D15W/E-LYTES/CA 2,000 ML with MULTIVITAMINS-12 INJ VIAL 1 2.5 ML, MULTIV... 40 ML IV CONT (15:40)
[2022-07-31 17:18] VITALS: BP 151/71; PULSE 86; RESP 17; TEMP 36.6; O2SAT 97
[2022-07-31 17:31] LABS: Glucose Point of Care 199 mg/dl (65-105)
[2022-07-31] MEDS: levoFLOXacin 500 MG/D5W 100 ML 500 MG/100 ML BAG 100 MG IVPB (19:26)
[2022-07-31 20:00] VITALS: PULSE 86; RESP 17; O2SAT 97
[2022-07-31] MEDS: CENTRAL LINE FLUSH 10 ML IV PUSH (21:31)
[2022-08-01] MEDS: metroNIDAZOLE 500 MG/ISO 100ML 500 MG/100 ML BAG 100 MG IVPB ×5 (00:33→23:52)
[2022-08-01] MEDS: IBUPROFEN IV 800 MG/200 ML 800 MG/200 ML BAG 400 MG IVPB ×3 (02:31→13:30)
[2022-08-01] MEDS: CENTRAL LINE FLUSH 10 ML IV PUSH ×2 (05:56→13:30)
[2022-08-01 06:29] LABS: Anion Gap 3 mmol/L (8-16); Blood Urea Nitrogen 9 mg/dL (9-20); Carbon Dioxide 27 mmol/L (22-30); Chloride 107 mmol/L (98-107); Estimated CRCL calculation 124 ml/min; Estimated Glomerular Filt Rate > 60; Glucose 163 mg/dL (65-110); Phosphorus 2.7 mg/dL (2.5-4.5); Sodium 137 mmol/L (137-145)
--- NOTE | 2022-08-01 06:48 | WPDGIPROGNO ---
Progress Note: A&P Assessment and Plan (1) Epigastric pain: Code(s): R10.13 - Epigastric pain Status: Inactive Assessment and Plan: It seems that his pain is due to recurrent episodes of biliary colic which have not been able to be proven with imaging. 07/29/2022 he is having very little pain today. He describes what he calls heartburn in the epigastric area. 07/31/22 he was having a fair bit of pain post ERCP. He states the pain is better today and controlled with the analgesics. 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 08/01/2022 he seems to be doing remarkably well considering the CT findings. (2) Transaminitis: Code(s): R74.01 - Elevation of levels of liver transaminase levels Status: Acute Assessment and Plan: As his enzymes have been jumping up with the to tack, he undoubtedly has choledocholithiasis. I discussed with him ERCP. I explained how the procedure is done. The possible risks such as bleeding, perforation or pancreatitis and that complications could result in surgery and rarely be fatal. 07/29/2022 his transaminases are about the same as they had been. 08/01/2022 transaminases continue to improve. (3) Hyperbilirubinemia: Code(s): E80.6 - Other disorders of bilirubin metabolism Status: Acute Assessment and Plan: This is the 1st time his bilirubin has been elevated. I explained that he has stones or sludge in the distal common bile duct. There is a risk of this turning into pancreatitis but so far does not appear that is a problem. Bilirubin remains 3.6. If it does not drop, I would consider MRCP to rule out persistent common bile duct stone Because of increased bilirubin yesterday ERCP was repeated revealing impacted stone in the mid common bile duct. Having been able to finally remove that his bilirubin should be lower today. post ERCP, the bilirubin is coming down. 08/01/2022 bilirubin was down to 2 yesterday. Apparently It was canceled for today. (4) BMI 33.0-33.9,adult: Code(s): Z68.33 - Body mass index [BMI] 33.0-33.9, adult Status: Acute (5) Cholelithiasis with choledocholithiasis: Code(s): K80.70 - Calculus of gallbladder and bile duct without cholecystitis without obstruction Status: Chronic Assessment and Plan: he has been seen by surgery and the plan is to perform a cholecystectomy, assuming his LFTs improved. If not, a cholangiogram could be done at the time surgery. 07/31/2022 Dr. Vazquez saw the patient immediately after his ERCP and address the problem. we have started additional antibiotics. Input and guidance from surgery is greatly appreciated. At this point it appears that he will be able to be managed conservatively (6) Duodenal perforation: Code(s): K63.1 - Perforation of intestine (nontraumatic) Status: Acute Assessment and Plan: He is responding well to conservative therapy and antibiotics as managed by surgery. PPN has been started for nutrition.Their Assistance is greatly appreciated. Plan Subjective Date/time seen: 08/01/22 06:48 he is lying in bed comfortably. He states that he is not having any pain. is no longer coughing as he apparently was on admission. He is looking forward to eating. I told that that determination will be made by surgery. I explained that we are treating him conservatively and consequently we want to do everything that we can to avoid surgery if possible . Exam Const: General: cooperative, healthy appearing, comfortable, no acute distress, alert, awake, well nourished and overweight Nutritional Appearance: well nourished and overweight Orientation/consciousness: patient oriented x3 HENMT: Head: normocephalic and atraumatic Mouth: Yes Normal oral and palatal mucosa present Eyes: Conjun
[2022-08-01] MEDS: IPRATROPIUM NASAL SPRAY 0.03% 15 ML BOTTLE 2 SPRAY NASAL ×2 (08:08→16:01)
[2022-08-01] MEDS: ENOXAPARIN 40 MG/0.4 ML SYRINGE SUB-Q (08:08)
[2022-08-01] MEDS: PANTOPRAZOLE SODIUM IV 40 MG VIAL IV PUSH (08:08)
[2022-08-01 08:39] LABS: Basophils Absolute Auto 0.1 K/mm3 (0.0-0.1); Basophils Percent Auto 0.4 % (0.2-1.2); Eosinophils Absolute Auto 0.1 K/mm3 (0-0.3); Hematocrit 36.7 % (42.0-52.0); Hemoglobin 13.1 g/dL (14.0-18.0); Immature Granulocyte Absolute 0.09 K/mm3 (0.00-0.031); Immature Granulocyte Percent A 0.7 % (0-0.5); Immature Platelet Fraction Pct 2.5 % (0.9-11.2); Lymphocytes Absolute Auto 1.88 K/mm3 (0.9-3.2); Lymphocytes Percent Auto 13.8 % (18.3-44.2); Mean Corpuscular HGB Conc 35.7 g/dl (32-36); Mean Corpuscular Hemoglobin 33.4 pg (26-34); Mean Corpuscular Volume 93.6 fl (80-100); Monocytes Absolute Auto 1.2 K/mm3 (0.1-0.6); Monocytes Percent Auto 8.6 % (2.6-8.5); Neutrophils Absolute Auto 10.3 K/mm3 (1.3-6.7); Neutrophils Percent Auto 75.5 % (45.5-73.1); Platelet Count Result 134 k/mm3 (150-375); Red Blood Count 3.92 M/mm3 (4.6-6.20); Red Cell Distribution Width 12.9 % (11.5-14.5); White Blood Count 13.7 K/mm3 (4.5-10.0)
[2022-08-01 08:54] LABS: Triglycerides 103 mg/dL (<150)
[2022-08-01] MEDS: KCL 40 MEQ/0.9% SOD CHL 1,000 ML 100 ML IV CONT ×2 (08:54→23:24)
[2022-08-01 08:58] LABS: Alanine Aminotransferase 252 U/L (6-50); Albumin Level 3.2 g/dL (3.5-5.1); Alkaline Phosphatase 155 U/L (38-126); Aspartate Amino Transferase 50 U/L (17-59); Bilirubin,Total 1.6 mg/dL (0.2-1.3)
[2022-08-01] MEDS: KCL 20 MEQ/SW 100 ML 100 ML 50 MEQ IVPB (08:58)
[2022-08-01 09:09] LABS: Glucose Point of Care 172 mg/dl (65-105)
--- NOTE | 2022-08-01 10:30 | PM.IMPN ---
Progress Note: A&P Assessment and Plan (1) Duodenal perforation: Code(s): K63.1 - Perforation of intestine (nontraumatic) Status: Acute Assessment and Plan: Noted after ERCP Currently stable TPN and bowel rest continued pain seems to be controlled Continue IV Levaquin and Flagyl Adjust therapy as indicated (2) Choledocholithiasis: Code(s): K80.50 - Calculus of bile duct without cholangitis or cholecystitis without obstruction Status: Acute Assessment and Plan: Presented with ongoing epigastric pain for couple of days with associated fever, nausea, and decreased appetite Appreciate gastroenterology consultation Symptoms felt to be most consistent with biliary colic and possible choledocholithiasis ERCP 07/28/22 removed stone and sludge, repeat scheduled for today due to increasing liver enzymes Diet per GI General surgery consulted Cholecystectomy post-poned due to new findings Continue with IV fluids Continue IV Levaquin, add Flagyl Remains afebrile (3) Transaminitis: Code(s): R74.01 - Elevation of levels of liver transaminase levels Status: Acute Assessment and Plan: Likely secondary to suspected choledocholithiasis as noted above Total bilirubin continues to rise and currently at 2.0 07/31/22 AST and ALT currently 138/439 07/31/22 ERCP 07/28/22 & 07/30/22 with stone extraction both times Continue to monitor LFTs (4) UTI (urinary tract infection): Code(s): N39.0 - Urinary tract infection, site not specified Status: Acute Assessment and Plan: UA is slightly abnormal, however patient is asymptomatic Urine culture grew enterococcus Continue IV Levaquin as bacteria was sensitive Increase Levaquin to 750mg daily (5) Hyperlipidemia: Qualifiers: Hyperlipidemia type: unspecified Qualified Code(s): E78.5 - Hyperlipidemia, unspecified Code(s): E78.5 - Hyperlipidemia, unspecified Status: Acute Assessment and Plan: Atorvastatin will be held given elevated LFTs, and NPO status (6) Gastroesophageal reflux disease: Code(s): K21.9 - Gastro-esophageal reflux disease without esophagitis Status: Acute Assessment and Plan: Patient complains of acid reflux Continue IV pantoprazole while NPO Continue home p.o. pantoprazole on famotidine when able to tolerate p.o. meds (7) Obstructive sleep apnea treated with BiPAP: Code(s): G47.33 - Obstructive sleep apnea (adult) (pediatric) Status: Acute Assessment and Plan: Continue home BiPAP (8) Prediabetes: Code(s): R73.03 - Prediabetes Status: Acute Assessment and Plan: Last A1c reportedly 5.9. Blood sugars have been well controlled Continue with Accu-Cheks q.6 hours with hypoglycemic protocol A1c 6.0 stable Glucose this am 163 Trend closely with patient now on TPN Subjective Date/time seen: 08/01/22 103 Interval history: 08/01/22 103 patient seems to be doing well today. Patient stated that he is just pretty bored. He did get up and walk around the halls and did well on his feet. He currently denies any chest pain, shortness a breath, nausea, vomiting, diarrhea, constipation, weakness or fatigue. 07/31/22 0845 patient was lying in bed and stated that he felt pretty good today. He denies having any pain however did state that he was having a little bit of pain but not as bad as it was. He denies any chest pain, shortness a breath, nausea, vomiting, diarrhea, constipation. Dr. Sylvester came in and is wanting to start patient on TPN. PICC line has been ordered. 07/30/22 0930 Patient stated that he was doing okay. I did talk to him about his labs and when I stated that his liver enzymes have when up he stated that he felt like he knew there was some
--- NOTE | 2022-08-01 10:30 | P.PNIM_ITS ---
Progress Note: A&P Assessment and Plan (1) Duodenal perforation: Code(s): K63.1 - Perforation of intestine (nontraumatic) Status: Acute Assessment and Plan: * Noted after ERCP * Currently stable * TPN and bowel rest continued * pain seems to be controlled * Continue IV Levaquin and Flagyl * Adjust therapy as indicated (2) Choledocholithiasis: Code(s): K80.50 - Calculus of bile duct without cholangitis or cholecystitis without obstruction Status: Acute Assessment and Plan: * Presented with ongoing epigastric pain for couple of days with associated fever, nausea, and decreased appetite * Appreciate gastroenterology consultation * Symptoms felt to be most consistent with biliary colic and possible choledocholithiasis * ERCP 07/28/22 removed stone and sludge, repeat scheduled for today due to increasing liver enzymes * Diet per GI * General surgery consulted * Cholecystectomy post-poned due to new findings * Continue with IV fluids * Continue IV Levaquin, add Flagyl * Remains afebrile (3) Transaminitis: Code(s): R74.01 - Elevation of levels of liver transaminase levels Status: Acute Assessment and Plan: * Likely secondary to suspected choledocholithiasis as noted above * Total bilirubin continues to rise and currently at 2.0 07/31/22 * AST and ALT currently 138/439 07/31/22 * ERCP 07/28/22 & 07/30/22 with stone extraction both times * Continue to monitor LFTs (4) UTI (urinary tract infection): Code(s): N39.0 - Urinary tract infection, site not specified Status: Acute Assessment and Plan: * UA is slightly abnormal, however patient is asymptomatic * Urine culture grew enterococcus * Continue IV Levaquin as bacteria was sensitive * Increase Levaquin to 750mg daily (5) Hyperlipidemia: Qualifiers: Hyperlipidemia type: unspecified Qualified Code(s): E78.5 - Hyperlipidemia, unspecified Code(s): E78.5 - Hyperlipidemia, unspecified Status: Acute Assessment and Plan: * Atorvastatin will be held given elevated LFTs, and NPO status (6) Gastroesophageal reflux disease: Code(s): K21.9 - Gastro-esophageal reflux disease without esophagitis Status: Acute Assessment and Plan: * Patient complains of acid reflux * Continue IV pantoprazole while NPO * Continue home p.o. pantoprazole on famotidine when able to tolerate p.o. meds (7) Obstructive sleep apnea treated with BiPAP: Code(s): G47.33 - Obstructive sleep apnea (adult) (pediatric) Status: Acute Assessment and Plan: Continue home BiPAP (8) Prediabetes: Code(s): R73.03 - Prediabetes Status: Acute Assessment and Plan: * Last A1c reportedly 5.9. Blood sugars have been well controlled * Continue with Accu-Cheks q.6 hours with hypoglycemic protocol * A1c 6.0 * stable * Glucose this am 163 * Trend closely with patient now on TPN Subjective Date/time seen: 08/01/22 1030 Interval history: 08/01/221029 patient seems to be doing well today. Patient stated that he is just pretty b ored. He did get up and walk around the halls and did well on his feet. He currently d
--- NOTE | 2022-08-01 11:26 | PM.PNGS ---
Progress Note: A&P Assessment and Plan (1) Cholelithiasis with choledocholithiasis: Code(s): K80.70 - Calculus of gallbladder and bile duct without cholecystitis without obstruction Status: Chronic Assessment and Plan: LFTs normalizing, exam benign, will need interval cholecystectomy (2) Duodenal perforation: Code(s): K63.1 - Perforation of intestine (nontraumatic) Status: Acute Assessment and Plan: exam benign, cont bowel rest, TPN, will likely repeat CT early next wk to reevaluate Subjective Subjective Date/Time Seen: 08/01/22 11:26 feels good, no abd pain Review of Systems Review of Systems: All systems reviewed & are unremarkable except as noted in HPI and below Exam Const: General: cooperative, comfortable and no acute distress Resp: Auscultation: clear to auscultation bilaterally Cardio: Rate: regular rate Rhythm: regular rhythm GI: Inspection: normal to inspection and non-distended GI Palp: No abdominal tenderness, Yes Soft to palpation, No Tenderness to palpation present (GI), No Guarding due to palpation present (GI) and No Rigid due to palpation Objective Data Vital Signs Vital Signs: Vital Signs - 24 hr 07/31/22 17:18 07/31/22 20:00 08/01/22 08:00 Temperature 36.6 C Pulse Rate 86 86 Respiratory Rate 17 17 Blood Pressure 151/71 H Pulse Oximetry 97 97 Oxygen Delivery Room Air Room Air Intake/Output Intake/Output: Intake & Output 07/29/22 07/30/22 07/31/22 08/01/22 23:59 23:59 23:59 23:59 Intake Total 4420 3800 1700 500 Output Total 375 Balance 4420 3800 1700 125 Meds/Results Medications: Active Medications Generic Name Dose Route Start Last Admin Trade Name Freq PRN Reason Stop Dose Admin Dextrose 12.5 gm 07/27/22 23:20 Dextrose 50% 25 Gm/50 Ml Syringe IV PUSH PRN PRN Hypoglycemia Protocol Enoxaparin Sodium 40 mg 07/31/22 09:00 08/01/22 08:08 Enoxaparin 40 Mg/0.4 Ml Syringe SUB-Q 40 mg DAILY COY Administration Glucagon 1 mg 07/27/22 23:20 Glucagon For Inj 1 Mg Vial IM PRN PRN Hypoglycemia Protocol Glucose 15 gm 12/12/22 23:20 Glucose Oral Gel 15 Gm Of Glucse In 37.5 Gm Tube PO PRN PRN Hypoglycemia Protocol Dextrose 1,000 mls @ 100 mls/hr 07/27/22 23:20 Dextrose 5% 1,000 Ml IVPB PRN PRN Hypoglycemia Protocol Ibuprofen 800 mg in 200 mls @ 400 mls/hr 07/30/22 20:00 08/01/22 08:47 Caldolor 800 Mg/200 Ml IVPB Infused Q6H COY Infusion Metronidazole 500 mg in 100 mls @ 100 mls/hr 07/31/22 00:00 08/01/22 05:56 Flagyl 500 Mg/Iso Soln 100 Ml IVPB 100 mls/hr Q6H COY Administration Dextrose 1,000 mls @ 50 mls/hr 07/31/22 11:04 Dextrose 10% IV CONT .Q20H PRN if PN is interrupted Multivitamins 2.5 ml/ 2,005 mls @ 40 mls/hr 07/31/22 16:00 07/31/22 15:40 Multivitamins 2.5 ml/ Amino IV CONT 40 mls/hr Acids/Electrolytes/Dextrose .Q24H COY Administration Protocol Levofloxacin/Dextrose 750 mg in 150 mls @ 100 mls/hr 08/01/22 18:00 Levaquin 750 Mg/D5w 150 Ml IVPB Q24H COY Potassium Chloride/Sodium Chloride 1,000 mls @ 100 mls/hr 08/01/22 08:10 08/01/22 08:54 Kcl 40 Meq/Ns IV CONT 100 mls/hr .Q10H COY Administration Ipratropium [place] 2 spray 07/28/22 09:00 08/01/22 08:08 Ipratropium Nasal [place] 0.03% 15 Ml Bottle NASAL 2 spray BID COY Administration Morphine Sulfate 2 mg 07/27/22 23:21 Morphine Sulfate (*Crx) 2 Mg/Ml Inj IV PUSH Q4H PRN Pain Rated 7-10 Morphine Sulfate 1 mg 07/30/22 18:56 Morphine Sulfate (*Crx) 2 Mg/Ml Inj IV PUSH Q2H PRN Pain Rated 1-3 Morphine Sulfate 2 mg 07/30/22 18:56 Morphine Sulfate (*Crx) 2 Mg/Ml Inj IV PUSH Q2H PRN Pain Rated 4-6 Morphine Sulfate 4 mg 12/15/22 18:56 Morphine Sulfate (*Crx) 4 Mg/Ml Inj IV PUSH Q2H PRN Pain Rated 7-10 Naloxone HCl 0.1 mg 07/30/22
[2022-08-01 12:20] LABS: Glucose Point of Care 151 mg/dl (65-105)
[2022-08-01 14:00] VITALS: BP 112/91; PULSE 89; RESP 20; TEMP 36.4; O2SAT 99
[2022-08-01] MEDS: AMINO ACIDS 5%/D15W/E-LYTES/CA 2,000 ML with MULTIVITAMINS-12 INJ VIAL 1 2.5 ML, MULTIV... 40 ML IV CONT (16:01)
[2022-08-01 16:42] LABS: Glucose Point of Care 152 mg/dl (65-105)
[2022-08-01 20:00] VITALS: BP 154/62; PULSE 88; RESP 14; TEMP 36.8; O2SAT 96
[2022-08-01] MEDS: IBUPROFEN IV 800 MG/200 ML 800 MG/200 ML BAG 200 MG IVPB (20:34)
[2022-08-01 21:57] LABS: Glucose Point of Care 137 mg/dl (65-105)
[2022-08-02] MEDS: IBUPROFEN IV 800 MG/200 ML 800 MG/200 ML BAG 200 MG IVPB (01:08)
[2022-08-02] MEDS: CENTRAL LINE FLUSH 10 ML IV PUSH ×4 (01:11→23:05)
[2022-08-02 02:26] LABS: Glucose Point of Care 148 mg/dl (65-105)
[2022-08-02] MEDS: metroNIDAZOLE 500 MG/ISO 100ML 500 MG/100 ML BAG 100 MG IVPB ×4 (05:38→23:33)
[2022-08-02 05:45] VITALS: BP 134/66; PULSE 67; RESP 14; TEMP 36.3; O2SAT 94
[2022-08-02 06:45] LABS: Alanine Aminotransferase 156 U/L (6-50); Albumin Level 3.1 g/dL (3.5-5.1); Alkaline Phosphatase 125 U/L (38-126); Anion Gap 6 mmol/L (8-16); Aspartate Amino Transferase 35 U/L (17-59); Blood Urea Nitrogen 10 mg/dL (9-20); Calcium 7.9 mg/dL (8.4-10.2); Carbon Dioxide 23 mmol/L (22-30); Chloride 107 mmol/L (98-107); Estimated CRCL calculation 124 ml/min; Estimated Glomerular Filt Rate > 60; Glucose 154 mg/dL (65-110); Potassium 3.2 mmol/L (3.4-5.0); Sodium 136 mmol/L (137-145)
[2022-08-02 08:12] LABS: Glucose Point of Care 156 mg/dl (65-105)
[2022-08-02] MEDS: ENOXAPARIN 40 MG/0.4 ML SYRINGE SUB-Q (09:11)
[2022-08-02] MEDS: PANTOPRAZOLE SODIUM IV 40 MG VIAL IV PUSH (09:12)
[2022-08-02] MEDS: IBUPROFEN IV 800 MG/200 ML 800 MG/200 ML BAG 400 MG IVPB ×2 (09:12→13:42)
[2022-08-02] MEDS: IPRATROPIUM NASAL SPRAY 0.03% 15 ML BOTTLE 2 SPRAY NASAL ×2 (09:18→16:44)
[2022-08-02 09:45] VITALS: O2SAT 97
--- NOTE | 2022-08-02 10:15 | P.PNIM_ITS ---
Progress Note: A&P Assessment and Plan (1) Duodenal perforation: Code(s): K63.1 - Perforation of intestine (nontraumatic) Status: Acute Assessment and Plan: * Noted after ERCP * Currently stable * TPN and bowel rest continued * pain seems to be controlled * Continue IV Levaquin and Flagyl * Adjust therapy as indicated * Plan for follow up CT in the am per surgery (2) Choledocholithiasis: Code(s): K80.50 - Calculus of bile duct without cholangitis or cholecystitis without obstruction Status: Acute Assessment and Plan: * Presented with ongoing epigastric pain for couple of days with associated fever, nausea, and decreased appetite * Appreciate gastroenterology consultation * Symptoms felt to be most consistent with biliary colic and possible choledocholithiasis * ERCP 07/28/22 removed stone and sludge, repeat scheduled for today due to increasing liver enzymes * Diet per GI * General surgery consulted * Cholecystectomy post-poned due to new findings * Continue with IV fluids * Continue IV Levaquin, add Flagyl * Remains afebrile (3) Transaminitis: Code(s): R74.01 - Elevation of levels of liver transaminase levels Status: Acute Assessment and Plan: * Likely secondary to suspected choledocholithiasis as noted above * Total bilirubin continues to rise and currently at 2.0 07/31/22 * AST and ALT currently 35/156 * ERCP 07/28/22 & 07/30/22 with stone extraction both times * Continue to monitor LFTs (4) UTI (urinary tract infection): Code(s): N39.0 - Urinary tract infection, site not specified Status: Acute Assessment and Plan: * UA is slightly abnormal, however patient is asymptomatic * Urine culture grew enterococcus * Continue IV Levaquin as bacteria was sensitive * Increase Levaquin to 750mg daily (5) Hyperlipidemia: Qualifiers: Hyperlipidemia type: unspecified Qualified Code(s): E78.5 - H yperlipidemia, unspecified Code(s): E78.5 - Hyperlipidemia, unspecified Status: Acute Assessment and Plan: * Atorvastatin will be held given elevated LFTs, and NPO status (6) Gastroesophageal reflux disease: Code(s): K21.9 - Gastro-esophageal reflux disease without esophagitis Status: Acute Assessment and Plan: * Patient complains of acid reflux * Continue IV pantoprazole while NPO * Continue home p.o. pantoprazole on famotidine when able to tolerate p.o. meds (7) Obstructive sleep apnea treated with BiPAP: Code(s): G47.33 - Obstructive sleep apnea (adult) (pediatric) Status: Acute Assessment and Plan: Continue home BiPAP (8) Prediabetes: Code(s): R73.03 - Prediabetes Status: Acute Assessment and Plan: * Last A1c reportedly 5.9. Blood sugars have been well controlled * Continue with Accu-Cheks q.6 hours with hypoglycemic protocol * A1c 6.0 * stable * Glucose this am 154 * Trend closely with patient now on TPN (9) Hypokalemia: Code(s): E87.6 - Hypokalemia Status: Acute Assessment and Plan: * K is 3.2 today * K rider ordered * KCL ordered for maintenance fluid * Continue to trend * Adjust thera
--- NOTE | 2022-08-02 10:15 | PM.IMPN ---
Progress Note: A&P Assessment and Plan (1) Duodenal perforation: Code(s): K63.1 - Perforation of intestine (nontraumatic) Status: Acute Assessment and Plan: Noted after ERCP Currently stable TPN and bowel rest continued pain seems to be controlled Continue IV Levaquin and Flagyl Adjust therapy as indicated Plan for follow up CT in the am per surgery (2) Choledocholithiasis: Code(s): K80.50 - Calculus of bile duct without cholangitis or cholecystitis without obstruction Status: Acute Assessment and Plan: Presented with ongoing epigastric pain for couple of days with associated fever, nausea, and decreased appetite Appreciate gastroenterology consultation Symptoms felt to be most consistent with biliary colic and possible choledocholithiasis ERCP 07/28/22 removed stone and sludge, repeat scheduled for today due to increasing liver enzymes Diet per GI General surgery consulted Cholecystectomy post-poned due to new findings Continue with IV fluids Continue IV Levaquin, add Flagyl Remains afebrile (3) Transaminitis: Code(s): R74.01 - Elevation of levels of liver transaminase levels Status: Acute Assessment and Plan: Likely secondary to suspected choledocholithiasis as noted above Total bilirubin continues to rise and currently at 2.0 07/31/22 AST and ALT currently 35/156 ERCP 07/28/22 & 07/30/22 with stone extraction both times Continue to monitor LFTs (4) UTI (urinary tract infection): Code(s): N39.0 - Urinary tract infection, site not specified Status: Acute Assessment and Plan: UA is slightly abnormal, however patient is asymptomatic Urine culture grew enterococcus Continue IV Levaquin as bacteria was sensitive Increase Levaquin to 750mg daily (5) Hyperlipidemia: Qualifiers: Hyperlipidemia type: unspecified Qualified Code(s): E78.5 - Hyperlipidemia, unspecified Code(s): E78.5 - Hyperlipidemia, unspecified Status: Acute Assessment and Plan: Atorvastatin will be held given elevated LFTs, and NPO status (6) Gastroesophageal reflux disease: Code(s): K21.9 - Gastro-esophageal reflux disease without esophagitis Status: Acute Assessment and Plan: Patient complains of acid reflux Continue IV pantoprazole while NPO Continue home p.o. pantoprazole on famotidine when able to tolerate p.o. meds (7) Obstructive sleep apnea treated with BiPAP: Code(s): G47.33 - Obstructive sleep apnea (adult) (pediatric) Status: Acute Assessment and Plan: Continue home BiPAP (8) Prediabetes: Code(s): R73.03 - Prediabetes Status: Acute Assessment and Plan: Last A1c reportedly 5.9. Blood sugars have been well controlled Continue with Accu-Cheks q.6 hours with hypoglycemic protocol A1c 6.0 stable Glucose this am 154 Trend closely with patient now on TPN (9) Hypokalemia: Code(s): E87.6 - Hypokalemia Status: Acute Assessment and Plan: K is 3.2 today K rider ordered KCL ordered for maintenance fluid Continue to trend Adjust therapy as indicated Time Spent With Patient Time with patient: Greater than 35 minutes Subjective Date/time seen: 08/02/22 1015 Interval history: 08/02/22 1015 patient stated that he is doing okay. He has no pain and feels okay. He still has not had a bowel movement will add something for support. He denies any chest pain, shortness a breath, nausea, vomiting, diarrhea, constipation, weakness or fatigue. 08/01/22 1030 patient seems to be doing well today. Patient stated that he is just pretty bored. He did get up and walk around the halls and did well on his feet. He currently denies any chest pain, shortness a breath, nausea, vomiting,
[2022-08-02 12:02] LABS: Glucose Point of Care 153 mg/dl (65-105)
--- NOTE | 2022-08-02 12:37 | PM.PNGS ---
Progress Note: A&P Assessment and Plan (1) Duodenal perforation: Code(s): K63.1 - Perforation of intestine (nontraumatic) Status: Acute Assessment and Plan: exam benign, cont TPN, recheck CT tomorrow (2) Cholelithiasis with choledocholithiasis: Code(s): K80.70 - Calculus of gallbladder and bile duct without cholecystitis without obstruction Status: Chronic Assessment and Plan: exam benign, labs largely normalized, will need interval cholecystectomy, d/w pt and he would like to wait a couple of wk and have done as outpt Subjective Subjective Date/Time Seen: 08/02/22 12:37 feels good, no acute issues Review of Systems Review of Systems: All systems reviewed & are unremarkable except as noted in HPI and below Exam Const: General: cooperative, comfortable and no acute distress Resp: Auscultation: clear to auscultation bilaterally Cardio: Rate: regular rate Rhythm: regular rhythm GI: Inspection: normal to inspection and non-distended GI Palp: No abdominal tenderness, Yes Soft to palpation, No Tenderness to palpation present (GI), No Guarding due to palpation present (GI) and No Rigid due to palpation Objective Data Vital Signs Vital Signs: Vital Signs - 24 hr 08/01/22 14:00 08/01/22 20:00 08/01/22 20:05 Temperature 36.4 C 36.8 C Pulse Rate 89 88 Respiratory Rate 20 14 Blood Pressure 112/91 H 154/62 H Pulse Oximetry 99 96 Oxygen Delivery Room Air 08/02/22 05:45 08/02/22 09:45 Temperature 36.3 C L Pulse Rate 67 Respiratory Rate 14 Blood Pressure 134/66 Pulse Oximetry 94 97 Oxygen Delivery Room Air Intake/Output Intake/Output: Intake & Output 07/30/22 07/31/22 08/01/22 08/02/22 23:59 23:59 23:59 23:59 Intake Total 3800 1700 4305 600 Output Total 375 Balance 3800 1700 3930 600 Meds/Results Medications: Active Medications Generic Name Dose Route Start Last Admin Trade Name Freq PRN Reason Stop Dose Admin Dextrose 12.5 gm 07/27/22 23:20 Dextrose 50% 25 Gm/50 Ml Syringe IV PUSH PRN PRN Hypoglycemia Protocol Enoxaparin Sodium 40 mg 07/31/22 09:00 08/02/22 09:11 Enoxaparin 40 Mg/0.4 Ml Syringe SUB-Q 40 mg DAILY COY Administration Glucagon 1 mg 07/27/22 23:20 Glucagon For Inj 1 Mg Vial IM PRN PRN Hypoglycemia Protocol Glucose 15 gm 07/27/22 23:20 Glucose Oral Gel 15 Gm Of Glucse In 37.5 Gm Tube PO PRN PRN Hypoglycemia Protocol Dextrose 1,000 mls @ 100 mls/hr 07/27/22 23:20 Dextrose 5% 1,000 Ml IVPB PRN PRN Hypoglycemia Protocol Ibuprofen 800 mg in 200 mls @ 400 mls/hr 07/30/22 20:00 08/02/22 09:43 Caldolor 800 Mg/200 Ml IVPB Infused Q6H COY Infusion Metronidazole 500 mg in 100 mls @ 100 mls/hr 07/31/22 00:00 08/02/22 12:29 Flagyl 500 Mg/Iso Soln 100 Ml IVPB 100 mls/hr Q6H COY Administration Dextrose 1,000 mls @ 50 mls/hr 07/31/22 11:04 Dextrose 10% IV CONT .Q20H PRN if PN is interrupted Multivitamins 2.5 ml/ 2,005 mls @ 40 mls/hr 07/31/22 16:00 08/01/22 16:01 Multivitamins 2.5 ml/ Amino IV CONT 40 mls/hr Acids/Electrolytes/Dextrose .Q24H COY Administration Protocol Levofloxacin/Dextrose 750 mg in 150 mls @ 100 mls/hr 08/01/22 18:00 08/01/22 17:03 Levaquin 750 Mg/D5w 150 Ml IVPB 100 mls/hr Q24H COY Administration Potassium Chloride/Sodium Chloride 1,000 mls @ 100 mls/hr 08/01/22 08:10 08/01/22 23:24 Kcl 40 Meq/Ns IV CONT 100 mls/hr .Q10H COY Administration Potassium Chloride 100 mls @ 50 mls/hr 08/02/22 12:30 Kcl 20 Meq/Sw 100 Ml IVPB 08/02/22 14:29 ONCE ONE Ipratropium [employer] M[employer] 2 spray 07/28/22 09:00 08/02/22 09:18 Ipratropium Nasal [place] 0.03% 15 Ml Bottle NASAL 2 spray BID COY Administration Morphine Sulfate 2 mg 07/27/22 23:21 Morphine Sulfate (*Crx) 2 Mg/Ml Inj IV PUSH Q4H PRN Pain Rated 7-10 Morphine Sulfate 1 mg 12
[2022-08-02] MEDS: KCL 20 MEQ/SW 100 ML 100 ML 50 MEQ IVPB (14:25)
[2022-08-02 15:06] VITALS: BP 135/86; PULSE 79; RESP 16; TEMP 36.2; O2SAT 95
[2022-08-02] MEDS: AMINO ACIDS 5%/D15W/E-LYTES/CA 2,000 ML with MULTIVITAMINS-12 INJ VIAL 1 2.5 ML, MULTIV... 40 ML IV CONT (16:43)
[2022-08-02 17:17] LABS: Glucose Point of Care 120 mg/dl (65-105)
[2022-08-02] MEDS: KCL 40 MEQ/0.9% SOD CHL 1,000 ML 100 ML IV CONT (17:19)
[2022-08-02 20:00] VITALS: BP 141/77; PULSE 77; RESP 18; TEMP 36.4; O2SAT 99
[2022-08-02] MEDS: IBUPROFEN IV 800 MG/200 ML 800 MG/200 ML BAG 125 MG IVPB (21:32)
[2022-08-03] MEDS: IBUPROFEN IV 800 MG/200 ML 800 MG/200 ML BAG 125 MG IVPB ×3 (02:13→20:47)
[2022-08-03 02:14] LABS: Glucose Point of Care 144 mg/dl (65-105)
[2022-08-03 03:16] LABS: Basophils Percent Auto 0.4 % (0.2-1.2); Eosinophils Absolute Auto 0.3 K/mm3 (0-0.3); Eosinophils Percent Auto 3.6 % (0-4.4); Hematocrit 33.7 % (42.0-52.0); Hemoglobin 11.6 g/dL (14.0-18.0); Immature Granulocyte Absolute 0.03 K/mm3 (0.00-0.031); Immature Granulocyte Percent A 0.4 % (0-0.5); Lymphocytes Absolute Auto 2.16 K/mm3 (0.9-3.2); Lymphocytes Percent Auto 25.2 % (18.3-44.2); Mean Corpuscular HGB Conc 34.4 g/dl (32-36); Mean Corpuscular Hemoglobin 33.2 pg (26-34); Mean Corpuscular Volume 96.6 fl (80-100); Monocytes Absolute Auto 0.7 K/mm3 (0.1-0.6); Monocytes Percent Auto 8.2 % (2.6-8.5); Neutrophils Absolute Auto 5.3 K/mm3 (1.3-6.7); Neutrophils Percent Auto 62.2 % (45.5-73.1); Platelet Count Result 198 k/mm3 (150-375); Red Blood Count 3.49 M/mm3 (4.6-6.20); Red Cell Distribution Width 12.5 % (11.5-14.5); White Blood Count 8.6 K/mm3 (4.5-10.0)
[2022-08-03 04:27] LABS: INR 1.2; Partial Thromboplastin Time 35.4 SECONDS (22.3-36.8); Prothrombin Time 14.9 Seconds (11.1-14.7)
[2022-08-03 04:29] LABS: Glucose Point of Care 124 mg/dl (65-105)
[2022-08-03] MEDS: metroNIDAZOLE 500 MG/ISO 100ML 500 MG/100 ML BAG 100 MG IVPB ×3 (05:11→17:40)
[2022-08-03 06:00] VITALS: BP 126/72; PULSE 71; RESP 20; TEMP 36.6; O2SAT 98
[2022-08-03 06:00] LABS: Alanine Aminotransferase 114 U/L (6-50); Alkaline Phosphatase 106 U/L (38-126); Anion Gap 2 mmol/L (8-16); Aspartate Amino Transferase 36 U/L (17-59); Bilirubin,Total 0.8 mg/dL (0.2-1.3); Blood Urea Nitrogen 11 mg/dL (9-20); Calcium 7.8 mg/dL (8.4-10.2); Carbon Dioxide 25 mmol/L (22-30); Chloride 107 mmol/L (98-107); Estimated CRCL calculation 124 ml/min; Estimated Glomerular Filt Rate > 60; Glucose 147 mg/dL (65-110); Magnesium 2.1 mg/dL (1.6-2.3); Phosphorus 3.7 mg/dL (2.5-4.5); Potassium 3.7 mmol/L (3.4-5.0); Sodium 134 mmol/L (137-145)
[2022-08-03 06:19] LABS: Transferrin 107 mg/dL (206-381)
[2022-08-03] MEDS: CENTRAL LINE FLUSH 10 ML IV PUSH ×2 (06:19→21:50)
[2022-08-03 08:32] LABS: Glucose Point of Care 164 mg/dl (65-105)
[2022-08-03] MEDS: IPRATROPIUM NASAL SPRAY 0.03% 15 ML BOTTLE 2 SPRAY NASAL ×2 (08:41→16:30)
[2022-08-03] MEDS: ENOXAPARIN 40 MG/0.4 ML SYRINGE SUB-Q (08:41)
[2022-08-03 09:15] VITALS: O2SAT 95
[2022-08-03] MEDS: PANTOPRAZOLE SODIUM IV 40 MG VIAL IV PUSH (09:49)
[2022-08-03 09:54] LABS: Triglycerides 85 mg/dL (<150)
--- NOTE | 2022-08-03 10:00 | P.PNIM_ITS ---
Progress Note: A&P Assessment and Plan (1) Duodenal perforation: Code(s): K63.1 - Perforation of intestine (nontraumatic) Status: Acute Assessment and Plan: * Noted after ERCP * Currently stable * TPN and bowel rest being reviewed, awaiting ct at this time * Denies any pain * Continue IV Levaquin and Flagyl * Adjust therapy as indicated * Plan for follow up CT in the am per surgery (2) Choledocholithiasis: Code(s): K80.50 - Calculus of bile duct without cholangitis or cholecystitis without obstruction Status: Acute Assessment and Plan: * Presented with ongoing epigastric pain for couple of days with associated fever, nausea, and decreased appetite * Appreciate gastroenterology consultation * Symptoms felt to be most consistent with biliary colic and possible choledocholithiasis * ERCP 07/28/22 removed stone and sludge, repeat scheduled for today due to increasing liver enzymes * Diet per GI * General surgery consulted * Cholecystectomy post-poned due to new findings * Continue with IV fluids * Continue IV Levaquin, add Flagyl * Remains afebrile (3) Transaminitis: Code(s): R74.01 - Elevation of levels of liver transaminase levels Status: Acute Assessment and Plan: * Likely secondary to suspected choledocholithiasis as noted above * Total bilirubin continues to rise and currently at 2.0 07/31/22 * AST and ALT currently 36/114 (08/03/22) * ERCP 07/28/22 & 07/30/22 with stone extraction both times * Continue to monitor LFTs (4) UTI (urinary tract infection): Code(s): N39.0 - Urinary tract infection, site not specified Status: Acute Assessment and Plan: * UA is slightly abnormal, however patient is asymptomatic * Urine culture grew enterococcus * Continue IV Levaquin as bacteria was sensitive * Increase Levaquin to 750mg daily (5) Hyperlipidemia: Qualifiers: Hyperlipidemia type: unspecified Qualified Code(s): E78.5 - Hyperlipidemia, unspecified Code(s): E78.5 - Hyperlipidemia, unspecified Status: Acute Assessment and Plan: * Atorvastatin will be held given elevated LFTs, and NPO status (6) Gastroesophageal reflux disease: Code(s): K21.9 - Gastro-esophageal reflux disease without esophagitis Status: Acute Assessment and Plan: * Patient complains of acid reflux * Continue IV pantoprazole while NPO * Continue home p.o. pantoprazole on famotidine when able to tolerate p.o. meds (7) Obstructive sleep apnea treated with BiPAP: Code(s): G47.33 - Obstructive sleep apnea (adult) (pediatric) Status: Acute Assessment and Plan: Continue home BiPAP (8) Prediabetes: Code(s): R73.03 - Prediabetes Status: Acute Assessment and Plan: * Last A1c reportedly 5.9. Blood sugars have been well controlled * Continue with Accu-Cheks q.6 hours with hypoglycemic protocol * A1c 6.0 * stable * Glucose this am 147 * Trend closely with patient now on TPN (9) Hypokalemia: Code(s): E87.6 - Hypokalemia Status: Acute Assessment and Plan: * K is 3.7 today * KCL ordered for maintenance fluid * Continue to trend * Adjus
--- NOTE | 2022-08-03 10:00 | PM.IMPN ---
Progress Note: A&P Assessment and Plan (1) Duodenal perforation: Code(s): K63.1 - Perforation of intestine (nontraumatic) Status: Acute Assessment and Plan: Noted after ERCP Currently stable TPN and bowel rest being reviewed, awaiting ct at this time Denies any pain Continue IV Levaquin and Flagyl Adjust therapy as indicated Plan for follow up CT in the am per surgery (2) Choledocholithiasis: Code(s): K80.50 - Calculus of bile duct without cholangitis or cholecystitis without obstruction Status: Acute Assessment and Plan: Presented with ongoing epigastric pain for couple of days with associated fever, nausea, and decreased appetite Appreciate gastroenterology consultation Symptoms felt to be most consistent with biliary colic and possible choledocholithiasis ERCP 07/28/22 removed stone and sludge, repeat scheduled for today due to increasing liver enzymes Diet per GI General surgery consulted Cholecystectomy post-poned due to new findings Continue with IV fluids Continue IV Levaquin, add Flagyl Remains afebrile (3) Transaminitis: Code(s): R74.01 - Elevation of levels of liver transaminase levels Status: Acute Assessment and Plan: Likely secondary to suspected choledocholithiasis as noted above Total bilirubin continues to rise and currently at 2.0 07/31/22 AST and ALT currently 36/114 (08/03/22) ERCP 07/28/22 & 07/30/22 with stone extraction both times Continue to monitor LFTs (4) UTI (urinary tract infection): Code(s): N39.0 - Urinary tract infection, site not specified Status: Acute Assessment and Plan: UA is slightly abnormal, however patient is asymptomatic Urine culture grew enterococcus Continue IV Levaquin as bacteria was sensitive Increase Levaquin to 750mg daily (5) Hyperlipidemia: Qualifiers: Hyperlipidemia type: unspecified Qualified Code(s): E78.5 - Hyperlipidemia, unspecified Code(s): E78.5 - Hyperlipidemia, unspecified Status: Acute Assessment and Plan: Atorvastatin will be held given elevated LFTs, and NPO status (6) Gastroesophageal reflux disease: Code(s): K21.9 - Gastro-esophageal reflux disease without esophagitis Status: Acute Assessment and Plan: Patient complains of acid reflux Continue IV pantoprazole while NPO Continue home p.o. pantoprazole on famotidine when able to tolerate p.o. meds (7) Obstructive sleep apnea treated with BiPAP: Code(s): G47.33 - Obstructive sleep apnea (adult) (pediatric) Status: Acute Assessment and Plan: Continue home BiPAP (8) Prediabetes: Code(s): R73.03 - Prediabetes Status: Acute Assessment and Plan: Last A1c reportedly 5.9. Blood sugars have been well controlled Continue with Accu-Cheks q.6 hours with hypoglycemic protocol A1c 6.0 stable Glucose this am 147 Trend closely with patient now on TPN (9) Hypokalemia: Code(s): E87.6 - Hypokalemia Status: Acute Assessment and Plan: K is 3.7 today KCL ordered for maintenance fluid Continue to trend Adjust therapy as indicated Currently stable Time Spent With Patient Time with patient: Greater than 35 minutes Subjective Date/time seen: 08/03/22 1000 Interval history: 08/03/22999 patient stated he is doing okay today. He does seem to be a little anxious as he is waiting to go for CT scan. He denies any chest pain, shortness a breath, nausea, vomiting, diarrhea constipation. He did state that he was able to have a bowel movement yesterday and he felt like it was fine. He is looking forward to the results and he is ready to eat. Continue to encourage patient to move around to get up. He also stated that he felt like he was congested
--- NOTE | 2022-08-03 10:10 | PM.PNGS ---
Progress Note: A&P Assessment and Plan (1) Duodenal perforation: Code(s): K63.1 - Perforation of intestine (nontraumatic) Status: Acute Assessment and Plan: Continues to improve. Abdominal exam benign. WBC normal this morning. Continue TPN, bowel rest, and will repeat CT scan abdomen/pelvis today. (2) Cholelithiasis with choledocholithiasis: Code(s): K80.70 - Calculus of gallbladder and bile duct without cholecystitis without obstruction Status: Chronic Assessment and Plan: S/p ERCP x 2 with post-ERCP retroperitoneal duodenal perforation improving with conservative treatment, LFTs normalized, continues to improve. Will eventually need interval cholecystectomy, patient wishes for this to be done as an outpatient in a few weeks after discussing with Dr. Sylvester this past weekend. Will plan to set up as an outpatient after discharge. Plan I have discussed the patient's case and plan of care with Dr. Sylvester. Subjective Subjective Date/Time Seen: 08/03/22 09:20 Patient reports: no new complaints, flatus, bowel movement (this morning, formed) and afebrile Interval history: Chart reviewed since last seen. Patient reports doing well today. Abdominal pain has resolved through the weekend. Denies abdominal pain, nausea, or vomiting. He does report some bloating, which has been unchanged over the past 5 days. He is passing flatus and had a BM this morning. Only complaint is dry mouth. Still NPO with TPN. Review of Systems Review of Systems: All systems reviewed & are unremarkable except as noted in HPI and below Exam Const: General: comfortable, no acute distress and awake Orientation/consciousness: patient oriented x3 GI: Inspection: normal to inspection and non-distended GI Palp: Yes Soft to palpation, No Tenderness to palpation present (GI), No Guarding due to palpation present (GI) and No Rebound tenderness present Auscultation: normal bowel sounds Extrem: General: normal to inspection Psych: Mental Status: mental status grossly normal Insight: Good insight present (Psych) Objective Data Vital Signs Vital Signs: Vital Signs - 24 hr 08/02/22 15:06 08/02/22 20:00 08/02/22 21:35 Temperature 97.1 F L 97.5 F L Pulse Rate 79 77 Respiratory Rate 16 18 Blood Pressure 135/86 141/77 H Pulse Oximetry 95 99 Oxygen Delivery Room Air 08/03/22 06:00 Temperature 97.9 F Pulse Rate 71 Respiratory Rate 20 Blood Pressure 126/72 Pulse Oximetry 98 Oxygen Delivery Intake/Output Intake/Output: Intake & Output 07/31/22 08/01/22 08/02/22 08/03/22 23:59 23:59 23:59 23:59 Intake Total 1700 4455 3374 1400 Output Total 375 Balance 1700 4080 3374 1400 Meds/Results Medications: Active Medications Generic Name Dose Route Start Last Admin Trade Name Freq PRN Reason Stop Dose Admin Dextrose 12.5 gm 07/27/22 23:20 Dextrose 50% 25 Gm/50 Ml Syringe IV PUSH PRN PRN Hypoglycemia Protocol Enoxaparin Sodium 40 mg 07/31/22 09:00 08/03/22 08:41 Enoxaparin 40 Mg/0.4 Ml Syringe SUB-Q 40 mg DAILY COY Administration Glucagon 1 mg 07/27/22 23:20 Glucagon For Inj 1 Mg Vial IM PRN PRN Hypoglycemia Protocol Glucose 15 gm 07/27/22 23:20 Glucose Oral Gel 15 Gm Of Glucse In 37.5 Gm Tube PO PRN PRN Hypoglycemia Protocol Dextrose 1,000 mls @ 100 mls/hr 07/27/22 23:20 Dextrose 5% 1,000 Ml IVPB PRN PRN Hypoglycemia Protocol Ibuprofen 800 mg in 200 mls @ 400 mls/hr 07/30/22 20:00 08/03/22 08:41 Caldolor 800 Mg/200 Ml IVPB 125 mls/hr Q6H COY Administration Metronidazole 500 mg in 100 mls @ 100 mls/hr 07/31/22 00:00 08/03/22 06:11 Flagyl 500 Mg/Iso Soln 100 Ml IVPB Infused Q6H COY Infusion Dextrose 1,000 mls @ 50 mls/hr 07/31/22 11:04 Dextrose 10% IV CONT .Q20H PRN if PN is interrupted Multivitamins 2.5 ml/ 2,005 mls @ 40 mls/hr 07/31/22 16:00 08/02/22 16:
[2022-08-03] MEDS: KCL 40 MEQ/0.9% SOD CHL 1,000 ML 60 ML IV CONT (10:40)
[2022-08-03 11:42] LABS: Glucose Point of Care 138 mg/dl (65-105)
--- NOTE | 2022-08-03 12:00 | WPDGIPROGNO ---
Progress Note: A&P Assessment and Plan (1) Epigastric pain: Code(s): R10.13 - Epigastric pain Status: Inactive Assessment and Plan: It seems that his pain is due to recurrent episodes of biliary colic which have not been able to be proven with imaging. 07/29/2022 he is having very little pain today. He describes what he calls heartburn in the epigastric area. 07/31/22 he was having a fair bit of pain post ERCP. He states the pain is better today and controlled with the analgesics. 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 08/01/2022 he seems to be doing remarkably well considering the CT findings. (2) Transaminitis: Code(s): R74.01 - Elevation of levels of liver transaminase levels Status: Acute Assessment and Plan: As his enzymes have been jumping up with the to tack, he undoubtedly has choledocholithiasis. I discussed with him ERCP. I explained how the procedure is done. The possible risks such as bleeding, perforation or pancreatitis and that complications could result in surgery and rarely be fatal. 07/29/2022 his transaminases are about the same as they had been. 08/01/2022 transaminases continue to improve. 08/03/2022 LFTs are normal (3) Hyperbilirubinemia: Code(s): E80.6 - Other disorders of bilirubin metabolism Status: Acute Assessment and Plan: This is the 1st time his bilirubin has been elevated. I explained that he has stones or sludge in the distal common bile duct. There is a risk of this turning into pancreatitis but so far does not appear that is a problem. Bilirubin remains 3.6. If it does not drop, I would consider MRCP to rule out persistent common bile duct stone Because of increased bilirubin yesterday ERCP was repeated revealing impacted stone in the mid common bile duct. Having been able to finally remove that his bilirubin should be lower today. post ERCP, the bilirubin is coming down. 08/01/2022 bilirubin was down to 2 yesterday. Apparently It was canceled for today. 08/03/2022 bilirubin is down to normal (4) BMI 33.0-33.9,adult: Code(s): Z68.33 - Body mass index [BMI] 33.0-33.9, adult Status: Acute Assessment and Plan: Because he has been NPO he is on TPN for nutritional supplements. (5) Cholelithiasis with choledocholithiasis: Code(s): K80.70 - Calculus of gallbladder and bile duct without cholecystitis without obstruction Status: Chronic Assessment and Plan: he has been seen by surgery and the plan is to perform a cholecystectomy, assuming his LFTs improved. If not, a cholangiogram could be done at the time surgery. 07/31/2022 Dr. Vazquez saw the patient immediately after his ERCP and address the problem. we have started additional antibiotics. Input and guidance from surgery is greatly appreciated. At this point it appears that he will be able to be managed conservatively (6) Duodenal perforation: Code(s): K63.1 - Perforation of intestine (nontraumatic) Status: Acute Assessment and Plan: He is responding well to conservative therapy and antibiotics as managed by surgery. PPN has been started for nutrition.Their Assistance is greatly appreciated. 08/03/2022 CT scan scheduled for today. If it looks good then hopefully he will start eating. Plan Subjective Date/time seen: 08/03/22 12:00 he has no new complaints. He is thirsty and eager to try liquids. Denies any pain at present. He did have a bowel movement yesterday. Exam Const: General: cooperative, healthy appearing, comfortable, no acute distress, alert, awake, well nourished and overweight Nutritional Appearance: well nourished and overweight Orientation/consciousness: patient oriented x3 HENMT: Head: normocephalic and atraumatic Mouth: Yes Normal oral a
[2022-08-03 14:24] VITALS: BP 130/77; PULSE 78; RESP 17; TEMP 36.1; O2SAT 98
[2022-08-03] MEDS: IBUPROFEN IV 800 MG/200 ML 800 MG/200 ML BAG 400 MG IVPB (14:38)
[2022-08-03] MEDS: AMINO ACIDS 5%/D15W/E-LYTES/CA 2,000 ML with MULTIVITAMINS-12 INJ VIAL 1 2.5 ML, MULTIV... 50 ML IV CONT (16:23)
[2022-08-03 18:32] LABS: Glucose Point of Care 145 mg/dl (65-105)
[2022-08-03 20:00] VITALS: BP 137/82; PULSE 75; RESP 20; TEMP 36.6; O2SAT 98
[2022-08-03 20:02] LABS: Glucose Point of Care 144 mg/dl (65-105)
[2022-08-04] MEDS: metroNIDAZOLE 500 MG/ISO 100ML 500 MG/100 ML BAG 125 MG IVPB ×2 (00:32→05:26)
[2022-08-04] MEDS: IBUPROFEN IV 800 MG/200 ML 800 MG/200 ML BAG 125 MG IVPB ×2 (01:29→07:58)
[2022-08-04 01:31] LABS: Glucose Point of Care 151 mg/dl (65-105)
[2022-08-04] MEDS: CENTRAL LINE FLUSH 10 ML IV PUSH ×2 (05:26→13:13)
[2022-08-04 05:53] VITALS: BP 142/75; PULSE 68; RESP 20; TEMP 36.4; O2SAT 98
[2022-08-04 06:57] LABS: Anion Gap 4 mmol/L (8-16); Blood Urea Nitrogen 14 mg/dL (9-20); Calcium 7.7 mg/dL (8.4-10.2); Carbon Dioxide 26 mmol/L (22-30); Chloride 109 mmol/L (98-107); Estimated CRCL calculation 123 ml/min; Estimated Glomerular Filt Rate > 60; Glucose 153 mg/dL (65-110); Phosphorus 3.8 mg/dL (2.5-4.5); Potassium 3.7 mmol/L (3.4-5.0); Sodium 139 mmol/L (137-145)
--- NOTE | 2022-08-04 07:30 | WPDGIPROGNO ---
Progress Note: A&P Assessment and Plan (1) Epigastric pain: Code(s): R10.13 - Epigastric pain Status: Inactive Assessment and Plan: It seems that his pain is due to recurrent episodes of biliary colic which have not been able to be proven with imaging. 07/29/2022 he is having very little pain today. He describes what he calls heartburn in the epigastric area. 07/31/22 he was having a fair bit of pain post ERCP. He states the pain is better today and controlled with the analgesics. 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 08/01/2022 he seems to be doing remarkably well considering the CT findings. 08/04/2022 he has no pain. He is tolerating clear liquids. (2) Transaminitis: Code(s): R74.01 - Elevation of levels of liver transaminase levels Status: Acute Assessment and Plan: As his enzymes have been jumping up with the to tack, he undoubtedly has choledocholithiasis. I discussed with him ERCP. I explained how the procedure is done. The possible risks such as bleeding, perforation or pancreatitis and that complications could result in surgery and rarely be fatal. 07/29/2022 his transaminases are about the same as they had been. 08/01/2022 transaminases continue to improve. 08/03/2022 LFTs are normal (3) Hyperbilirubinemia: Code(s): E80.6 - Other disorders of bilirubin metabolism Status: Acute Assessment and Plan: This is the 1st time his bilirubin has been elevated. I explained that he has stones or sludge in the distal common bile duct. There is a risk of this turning into pancreatitis but so far does not appear that is a problem. Bilirubin remains 3.6. If it does not drop, I would consider MRCP to rule out persistent common bile duct stone Because of increased bilirubin yesterday ERCP was repeated revealing impacted stone in the mid common bile duct. Having been able to finally remove that his bilirubin should be lower today. post ERCP, the bilirubin is coming down. 08/01/2022 bilirubin was down to 2 yesterday. Apparently It was canceled for today. 08/03/2022 bilirubin is down to normal (4) BMI 33.0-33.9,adult: Code(s): Z68.33 - Body mass index [BMI] 33.0-33.9, adult Status: Acute Assessment and Plan: Because he has been NPO he is on TPN for nutritional supplements. (5) Cholelithiasis with choledocholithiasis: Code(s): K80.70 - Calculus of gallbladder and bile duct without cholecystitis without obstruction Status: Chronic Assessment and Plan: he has been seen by surgery and the plan is to perform a cholecystectomy, assuming his LFTs improved. If not, a cholangiogram could be done at the time surgery. 07/31/2022 Dr. Vazquez saw the patient immediately after his ERCP and address the problem. we have started additional antibiotics. Input and guidance from surgery is greatly appreciated. At this point it appears that he will be able to be managed conservatively 08/04/2022 he states that the plan is for him to have outpatient cholecystectomy in a few weeks. (6) Duodenal perforation: Code(s): K63.1 - Perforation of intestine (nontraumatic) Status: Acute Assessment and Plan: He is responding well to conservative therapy and antibiotics as managed by surgery. PPN has been started for nutrition.Their Assistance is greatly appreciated. 08/03/2022 CT scan scheduled for today. If it looks good then hopefully he will start eating. 08/04/2022 CT scan shows improvement particularly in the amount of retroperitoneal air. Phlegmon still persists along the duodenum. Because small bowel series did not show any leak or persistent perforation, he has been started on a clear liquid diet. He is eager to eat again. Plan Advancement of diet etcetera to be managed by surgery. He
[2022-08-04] MEDS: KCL 40 MEQ/0.9% SOD CHL 1,000 ML 60 ML IV CONT (07:48)
[2022-08-04] MEDS: LOPERAMIDE HCL 2 MG CAPSULE 4 MG PO (07:52)
[2022-08-04] MEDS: PANTOPRAZOLE SODIUM IV 40 MG VIAL IV PUSH (08:03)
[2022-08-04 08:04] VITALS: RESP 20; O2SAT 98
[2022-08-04] MEDS: ENOXAPARIN 40 MG/0.4 ML SYRINGE SUB-Q (08:04)
[2022-08-04] MEDS: IPRATROPIUM NASAL SPRAY 0.03% 15 ML BOTTLE 2 SPRAY NASAL ×2 (08:04→17:31)
[2022-08-04] MEDS: metroNIDAZOLE 500 MG/ISO 100ML 500 MG/100 ML BAG 100 MG IVPB ×2 (11:28→17:33)
[2022-08-04 11:55] LABS: Glucose Point of Care 130 mg/dl (65-105)
--- NOTE | 2022-08-04 12:15 | PM.IMPN ---
Progress Note: A&P Assessment and Plan (1) Duodenal perforation: Code(s): K63.1 - Perforation of intestine (nontraumatic) Status: Acute Assessment and Plan: Noted after ERCP Currently stable TPN and bowel rest being reviewed, clear liquid diet at this time Denies any pain Continue IV Levaquin and Flagyl Adjust therapy as indicated CT indicated persistent leak/perforation at the descending duodenum Upper GI showed duodenitis with perforation, suspected polyp (2) Choledocholithiasis: Code(s): K80.50 - Calculus of bile duct without cholangitis or cholecystitis without obstruction Status: Acute Assessment and Plan: Presented with ongoing epigastric pain for couple of days with associated fever, nausea, and decreased appetite Appreciate gastroenterology consultation Symptoms felt to be most consistent with biliary colic and possible choledocholithiasis ERCP 07/28/22 removed stone and sludge, repeat scheduled for today due to increasing liver enzymes Diet per General surgery General surgery consulted Cholecystectomy post-poned due to new findings Continue with IV fluids Continue IV Levaquin, add Flagyl Remains afebrile (3) Transaminitis: Code(s): R74.01 - Elevation of levels of liver transaminase levels Status: Acute Assessment and Plan: Likely secondary to suspected choledocholithiasis as noted above Total bilirubin continues to rise and currently at 2.0 (07/31/22) AST and ALT currently 36/114 (08/03/22) ERCP 07/28/22 & 07/30/22 with stone extraction both times Continue to monitor LFTs (4) UTI (urinary tract infection): Code(s): N39.0 - Urinary tract infection, site not specified Status: Acute Assessment and Plan: UA is slightly abnormal, however patient is asymptomatic Urine culture grew enterococcus Continue IV Levaquin as bacteria was sensitive Increase Levaquin to 750mg daily (5) Hyperlipidemia: Qualifiers: Hyperlipidemia type: unspecified Qualified Code(s): E78.5 - Hyperlipidemia, unspecified Code(s): E78.5 - Hyperlipidemia, unspecified Status: Acute Assessment and Plan: Atorvastatin will be held given elevated LFTs, and NPO status (6) Gastroesophageal reflux disease: Code(s): K21.9 - Gastro-esophageal reflux disease without esophagitis Status: Acute Assessment and Plan: Patient complains of acid reflux Continue IV pantoprazole while NPO Continue home p.o. pantoprazole on famotidine when able to tolerate p.o. meds (7) Obstructive sleep apnea treated with BiPAP: Code(s): G47.33 - Obstructive sleep apnea (adult) (pediatric) Status: Acute Assessment and Plan: Continue home BiPAP (8) Prediabetes: Code(s): R73.03 - Prediabetes Status: Acute Assessment and Plan: Last A1c reportedly 5.9. Blood sugars have been well controlled Continue with Accu-Cheks q.6 hours with hypoglycemic protocol A1c 6.0 stable Glucose this am 153 Can probably go back to AC/HS since he has been started on a diet (9) Hypokalemia: Code(s): E87.6 - Hypokalemia Status: Acute Assessment and Plan: K is 3.7 today KCL ordered for maintenance fluid Continue to trend Adjust therapy as indicated Currently stable Time Spent With Patient Time with patient: Greater than 35 minutes Subjective Date/time seen: 08/04/22 1215 Interval history: 08/04/221214 Patient stated that he has been doing okay today. He also stated that he was able to have a decent bowel movements and stated the contrast dye. He denies any chest pain, shortness a breath, nausea or vomiting. He did state that he was able to tolerate food at this time. 08/03/22 1000 patient stated he is doing okay t
--- NOTE | 2022-08-04 12:15 | P.PNIM_ITS ---
Progress Note: A&P Assessment and Plan (1) Duodenal perforation: Code(s): K63.1 - Perforation of intestine (nontraumatic) Status: Acute Assessment and Plan: * Noted after ERCP * Currently stable * TPN and bowel rest being reviewed, clear liquid diet at this time * Denies any pain * Continue IV Levaquin and Flagyl * Adjust therapy as indicated * CT indicated persistent leak/perforation at the descending duodenum * Upper GI showed duodenitis with perforation, suspected polyp (2) Choledocholithiasis: Code(s): K80.50 - Calculus of bile duct without cholangitis or cholecystitis without obstruction Status: Acute Assessment and Plan: * Presented with ongoing epigastric pain for couple of days with associated fever, nausea, and decreased appetite * Appreciate gastroenterology consultation * Symptoms felt to be most consistent with biliary colic and possible choledocholithiasis * ERCP 07/28/22 removed stone and sludge, repeat scheduled for today due to increasing liver enzymes * Diet per General surgery * General surgery consulted * Cholecystectomy post-poned due to new findings * Continue with IV fluids * Continue IV Levaquin, add Flagyl * Remains afebrile (3) Transaminitis: Code(s): R74.01 - Elevation of levels of liver transaminase levels Status: Acute Assessment and Plan: * Likely secondary to suspected choledocholithiasis as noted above * Total bilirubin continues to rise and currently at 2.0 (07/31/22) * AST and ALT currently 36/114 (08/03/22) * ERCP 07/28/22 & 07/30/22 with stone extraction both times * Continue to monitor LFTs (4) UTI (urinary tract infection): Code(s): N39.0 - Urinary tract infection, site not specified Status: Acute Assessment and Plan: * UA is slightly abnormal, however patient is asymptomatic * Urine culture grew enterococcus * Continue IV Levaquin as bacteria was sensitive * Increase Levaquin to 750mg daily (5) Hyperlipidemia: Qualifiers: Hyperlipidemia type: unspecified Qualified Code(s): E78.5 - Hyperlipidemia, unspecified Code(s): E78.5 - Hyperlipidemia, unspecified Status: Acute Assessment and Plan: * Atorvastatin will be held given elevated LFTs, and NPO status (6) Gastroesophageal reflux disease: Code(s): K21.9 - Gastro-esophageal reflux disease without esophagitis Status: Acute Assessment and Plan: * Patient complains of acid reflux * Continue IV pantoprazole while NPO * Continue home p.o. pantoprazole on famotidine when able to tolerate p.o. meds (7) Obstructive sleep apnea treated with BiPAP: Code(s): G47.33 - Obstructive sleep apnea (adult) (pediatric) Status: Acute Assessment and Plan: Continue home BiPAP (8) Prediabetes: Code(s): R73.03 - Prediabetes Status: Acute Assessment and Plan: * Last A1c reportedly 5.9. Blood sugars have been well controlled * Continue with Accu-Cheks q.6 hours with hypoglycemic protocol * A1c 6.0 * stable * Glucose this am 153 * Can probably go back to AC/HS since he has been started on a diet (9) Hypokalemia: Code(s): E87.6 - Hypokalemia Status:
[2022-08-04] MEDS: IBUPROFEN IV 800 MG/200 ML 800 MG/200 ML BAG 200 MG IVPB ×2 (13:12→20:58)
[2022-08-04 14:00] VITALS: BP 154/84; PULSE 71; RESP 18; TEMP 36.3; O2SAT 97
--- NOTE | 2022-08-04 15:26 | PM.PNGS ---
Progress Note: A&P Assessment and Plan (1) Duodenal perforation: Code(s): K63.1 - Perforation of intestine (nontraumatic) Status: Acute Assessment and Plan: exam benign, torrey clears, will slowly ADAT, stop TPN (2) Cholelithiasis with choledocholithiasis: Code(s): K80.70 - Calculus of gallbladder and bile duct without cholecystitis without obstruction Status: Chronic Assessment and Plan: will need interval katarina in the future Subjective Subjective Date/Time Seen: 08/04/22 15:26 feels good, no issues, torrey clears Review of Systems Review of Systems: All systems reviewed & are unremarkable except as noted in HPI and below Exam Const: General: cooperative, comfortable and no acute distress Resp: Auscultation: clear to auscultation bilaterally Cardio: Rate: regular rate Rhythm: regular rhythm GI: Inspection: normal to inspection and non-distended GI Palp: No abdominal tenderness, Yes Soft to palpation, No Tenderness to palpation present (GI) and No Guarding due to palpation present (GI) Objective Data Vital Signs Vital Signs: Vital Signs - 24 hr 08/03/22 20:00 08/03/22 21:50 08/04/22 05:53 Temperature 36.6 C 36.4 C L Pulse Rate 75 68 Respiratory Rate 20 20 Blood Pressure 137/82 142/75 H Pulse Oximetry 98 98 Oxygen Delivery Room Air 08/04/22 08:04 08/04/22 14:00 Temperature 36.3 C L Pulse Rate 71 Respiratory Rate 20 18 Blood Pressure 154/84 H Pulse Oximetry 98 97 Oxygen Delivery Room Air Intake/Output Intake/Output: Intake & Output 08/01/22 08/02/22 08/03/22 08/04/22 23:59 23:59 23:59 23:59 Intake Total 4455 3374 3571 4584 Output Total 375 Balance 4080 3374 3571 4584 Meds/Results Medications: Active Medications Generic Name Dose Route Start Last Admin Trade Name Freq PRN Reason Stop Dose Admin Dextrose 12.5 gm 07/27/22 23:20 Dextrose 50% 25 Gm/50 Ml Syringe IV PUSH PRN PRN Hypoglycemia Protocol Enoxaparin Sodium 40 mg 07/31/22 09:00 08/04/22 08:04 Enoxaparin 40 Mg/0.4 Ml Syringe SUB-Q 40 mg DAILY COY Administration Glucagon 1 mg 07/27/22 23:20 Glucagon For Inj 1 Mg Vial IM PRN PRN Hypoglycemia Protocol Glucose 15 gm 07/27/22 23:20 Glucose Oral Gel 15 Gm Of Glucse In 37.5 Gm Tube PO PRN PRN Hypoglycemia Protocol Dextrose 1,000 mls @ 100 mls/hr 07/27/22 23:20 Dextrose 5% 1,000 Ml IVPB PRN PRN Hypoglycemia Protocol Ibuprofen 800 mg in 200 mls @ 400 mls/hr 07/30/22 20:00 08/04/22 14:12 Caldolor 800 Mg/200 Ml IVPB Infused Q6H COY Infusion Metronidazole 500 mg in 100 mls @ 100 mls/hr 07/31/22 00:00 08/04/22 12:28 Flagyl 500 Mg/Iso Soln 100 Ml IVPB Infused Q6H COY Infusion Dextrose 1,000 mls @ 50 mls/hr 07/31/22 11:04 Dextrose 10% IV CONT .Q20H PRN if PN is interrupted Multivitamins 2.5 ml/ 2,005 mls @ 50 mls/hr 07/31/22 16:00 08/03/22 16:23 Multivitamins 2.5 ml/ Amino IV CONT 50 mls/hr Acids/Electrolytes/Dextrose .Q24H COY Administration Protocol Levofloxacin/Dextrose 750 mg in 150 mls @ 100 mls/hr 08/01/22 18:00 08/03/22 18:53 Levaquin 750 Mg/D5w 150 Ml IVPB 100 mls/hr Q24H COY Administration Potassium Chloride/Sodium Chloride 1,000 mls @ 60 mls/hr 08/01/22 08:10 08/04/22 14:12 Kcl 40 Meq/Ns IV CONT 60 mls/hr .[id number] COY Infusion Ipratropium [place] 2 spray 07/28/22 09:00 08/04/22 08:04 Ipratropium Nasal [place] 0.03% 15 Ml Bottle NASAL 2 spray BID COY Administration Loperamide HCl 2 mg 08/04/22 07:19 Loperamide Hcl 2 Mg Capsule PO Q6H PRN Diarrhea Morphine Sulfate 2 mg 07/27/22 23:21 Morphine Sulfate (*Crx) 2 Mg/Ml Inj IV PUSH Q4H PRN Pain Rated 7-10 Morphine Sulfate 1 mg 07/30/22 18:56 Morphine Sulfate (*Crx) 2 Mg/Ml Inj IV PUSH Q2H PRN Pain Rated 1-3 Morphine Sulfate 2 mg 07/30/22 18:56 M
[2022-08-04 17:53] LABS: Glucose Point of Care 163 mg/dl (65-105)
[2022-08-04 20:00] VITALS: BP 142/82; PULSE 80; RESP 20; TEMP 36.6; O2SAT 98
[2022-08-05] MEDS: metroNIDAZOLE 500 MG/ISO 100ML 500 MG/100 ML BAG 100 MG IVPB ×3 (00:51→11:45)
[2022-08-05] MEDS: CENTRAL LINE FLUSH 10 ML IV PUSH ×2 (05:32→14:13)
[2022-08-05 06:00] VITALS: BP 145/69; PULSE 85; RESP 18; TEMP 36.6; O2SAT 96
[2022-08-05 06:27] LABS: Anion Gap 5 mmol/L (8-16); Blood Urea Nitrogen 8 mg/dL (9-20); Carbon Dioxide 26 mmol/L (22-30); Chloride 106 mmol/L (98-107); Estimated CRCL calculation 108 ml/min; Estimated Glomerular Filt Rate > 60; Glucose 139 mg/dL (65-110); Phosphorus 3.5 mg/dL (2.5-4.5); Potassium 3.9 mmol/L (3.4-5.0); Sodium 137 mmol/L (137-145)
[2022-08-05 06:53] LABS: Triglycerides 92 mg/dL (<150)
[2022-08-05 07:57] LABS: Glucose Point of Care 155 mg/dl (65-105)
[2022-08-05] MEDS: KCL 40 MEQ/0.9% SOD CHL 1,000 ML 60 ML IV CONT (08:15)
[2022-08-05] MEDS: PANTOPRAZOLE SODIUM IV 40 MG VIAL IV PUSH (08:19)
[2022-08-05] MEDS: ENOXAPARIN 40 MG/0.4 ML SYRINGE SUB-Q (08:19)
[2022-08-05] MEDS: IPRATROPIUM NASAL SPRAY 0.03% 15 ML BOTTLE 2 SPRAY NASAL ×2 (08:20→17:28)
[2022-08-05 08:22] VITALS: RESP 18; O2SAT 96
--- NOTE | 2022-08-05 09:36 | PCNFU ---
Nutrition Follow-Up Complete: Inadequate energy intake related to altered GI function and diet order as evidenced by NPO status and use of TPN Goal:Meet estimated needs. - TPN discontinued. 100% intakes on full liquids. Progressing toward goal Pt current nutrition is Full liquid diet. Nutrition recommendation: Continue to advance diet per MD Last recorded weight is 118 kg. Bowel Motility: +1 BM 08/03/22 Labs Reviewed: BUN 8 Meds Noted: Lovenox, protonix Skin: WNL Additional Notes: TPN was discontinued. Change to 5 day monitoring. Intakes are good on full liquids Monitor TPN orders, labs, wt. Follow up in 3 days.
[2022-08-05 11:47] LABS: Glucose Point of Care 185 mg/dl (65-105)
--- NOTE | 2022-08-05 13:11 | PM.PNGS ---
Progress Note: A&P Assessment and Plan (1) Duodenal perforation: Code(s): K63.1 - Perforation of intestine (nontraumatic) Status: Acute Assessment and Plan: doing well, ADAT, exam benign, ok to dc home from surgical standpoint (2) Cholelithiasis with choledocholithiasis: Code(s): K80.70 - Calculus of gallbladder and bile duct without cholecystitis without obstruction Status: Chronic Assessment and Plan: will need interval cholecystectomy, f/u 2 wks Subjective Subjective Date/Time Seen: 08/05/22 13:11 feels good, no issues torrey diet Review of Systems Review of Systems: All systems reviewed & are unremarkable except as noted in HPI and below Exam Const: General: cooperative, comfortable and no acute distress Resp: Auscultation: clear to auscultation bilaterally Cardio: Rate: regular rate Rhythm: regular rhythm GI: Inspection: normal to inspection and non-distended GI Palp: No abdominal tenderness, Yes Soft to palpation and No Tenderness to palpation present (GI) Objective Data Vital Signs Vital Signs: Vital Signs - 24 hr 08/04/22 14:00 08/04/22 20:00 08/05/22 06:00 Temperature 36.3 C L 36.6 C 36.6 C Pulse Rate 71 80 85 Respiratory Rate 18 20 18 Blood Pressure 154/84 H 142/82 H 145/69 H Pulse Oximetry 97 98 96 Oxygen Delivery 08/05/22 08:22 Temperature Pulse Rate Respiratory Rate 18 Blood Pressure Pulse Oximetry 96 Oxygen Delivery Room Air Intake/Output Intake/Output: Intake & Output 08/02/22 08/03/22 08/04/22 08/05/22 23:59 23:59 23:59 23:59 Intake Total 7191 3728 3051 2190 Balance 5153 9718 0745 2190 Meds/Results Medications: Active Medications Generic Name Dose Route Start Last Admin Trade Name Freq PRN Reason Stop Dose Admin Dextrose 12.5 gm 07/27/22 23:20 Dextrose 50% 25 Gm/50 Ml Syringe IV PUSH PRN PRN Hypoglycemia Protocol Enoxaparin Sodium 40 mg 07/31/22 09:00 08/05/22 08:19 Enoxaparin 40 Mg/0.4 Ml Syringe SUB-Q 40 mg DAILY COY Administration Glucagon 1 mg 07/27/22 23:20 Glucagon For Inj 1 Mg Vial IM PRN PRN Hypoglycemia Protocol Glucose 15 gm 07/27/22 23:20 Glucose Oral Gel 15 Gm Of Glucse In 37.5 Gm Tube PO PRN PRN Hypoglycemia Protocol Dextrose 1,000 mls @ 100 mls/hr 07/27/22 23:20 Dextrose 5% 1,000 Ml IVPB PRN PRN Hypoglycemia Protocol Ibuprofen 800 mg in 200 mls @ 400 mls/hr 07/30/22 20:00 08/05/22 08:16 Caldolor 800 Mg/200 Ml IVPB Not Given Q6H COY Metronidazole 500 mg in 100 mls @ 100 mls/hr 07/31/22 00:00 08/05/22 11:45 Flagyl 500 Mg/Iso Soln 100 Ml IVPB 100 mls/hr Q6H COY Administration Dextrose 1,000 mls @ 50 mls/hr 07/31/22 11:04 Dextrose 10% IV CONT .Q20H PRN if PN is interrupted Levofloxacin/Dextrose 750 mg in 150 mls @ 100 mls/hr 08/01/22 18:00 08/04/22 19:00 Levaquin 750 Mg/D5w 150 Ml IVPB Infused Q24H COY Infusion Potassium Chloride/Sodium Chloride 1,000 mls @ 60 mls/hr 08/01/22 08:10 08/05/22 11:44 Kcl 40 Meq/Ns IV CONT 0 mls/hr .[id number] COY Infusion Ipratropium [place] 2 spray 07/28/22 09:00 08/05/22 08:20 Ipratropium Nasal [place] 0.03% 15 Ml Bottle NASAL 2 spray BID COY Administration Loperamide HCl 2 mg 08/04/22 07:19 Loperamide Hcl 2 Mg Capsule PO Q6H PRN Diarrhea Morphine Sulfate 2 mg 07/27/22 23:21 Morphine Sulfate (*Crx) 2 Mg/Ml Inj IV PUSH Q4H PRN Pain Rated 7-10 Morphine Sulfate 1 mg 07/30/22 18:56 Morphine Sulfate (*Crx) 2 Mg/Ml Inj IV PUSH Q2H PRN Pain Rated 1-3 Morphine Sulfate 2 mg 07/30/22 18:56 Morphine Sulfate (*Crx) 2 Mg/Ml Inj IV PUSH Q2H PRN Pain Rated 4-6 Morphine Sulfate 4 mg 07/30/22 18:56 Morphine Sulfate (*Crx) 4 Mg/Ml Inj IV PUSH Q2H PRN Pain Rated 7-10 Naloxone HCl 0.1 mg 07/30/22 18:56 Naloxone Hcl 0.4 Mg/Ml Vial IV P
--- NOTE | 2022-08-05 14:35 | P.DS_ITS ---
DS: Admitting Diagnosis Discharge Date 08/05/2022 Admitting Diagnosis choledocholithiasis DS: Discharge Diagnosis Discharge Diagnosis (1) Duodenal perforation: Code(s): K63.1 - Perforation of intestine (nontraumatic) Status: Acute Assessment and Plan: * Noted after ERCP * Patient evaluated by general surgery and Gastroenterology. * CT indicated persistent leak/ perforation of the descending duodenum * Gastrografin upper GI completed which showed duodenitis with perforation * patient started on TPN and bowel rest with improvement * diet was slowly advanced and patient able to tolerate diabetic diet * received IV Levaquin and Flagyl during admission (2) Choledocholithiasis: Code(s): K80.50 - Calculus of bile duct without cholangitis or cholecystitis without obstruction Status: Acute Assessment and Plan: * Presented with ongoing epigastric pain for couple of days with associated fever, nausea, and decreased appetite * Seen in consultation by Gastroenterology * ERCP 07/28/22 removed stone and sludge * repeat ERCP on 07/30/2022 revealed choledocholithiasis and stone was extracted (3) Transaminitis: Code(s): R74.01 - Elevation of levels of liver transaminase levels Status: Acute Assessment and Plan: * felt to be secondary to choledocholithiasis * patient had rising LFTs, therefore ERCP repeated with subsequent stone extraction * LFTs trended down following this and were near normal at time of discharge with total bilirubin within normal limits (4) UTI (urinary tract infection): Code(s): N39.0 - Urinary tract infection, site not specified Status: Acute Assessment and Plan: * UA abnormal on presentation * Urine culture with growth of [id number] CFU Enterococcus * patient was asymptomatic and do not suspect this to be acute infection, however was treated with Levaquin for above issues which was susceptible based on culture result (5) Hyperlipidemia: Qualifiers: Hyperlipidemia type: unspecified Qualified Code(s): E78.5 - Hyperlipidemia, unspecified Code(s): E78.5 - Hyperlipidemia, unspecified Status: Acute Assessment and Plan: * Atorvastatin held due to transaminitis, however resumed on discharge with normalization of LFTs (6) Gastroesophageal reflux disease: Code(s): K21.9 - Gastro-esophageal reflux disease without esophagitis Status: Acute Assessment and Plan: * continue home omeprazole (7) Obstructive sleep apnea treated with BiPAP: Code(s): G47.33 - Obstructive sleep apnea (adult) (pediatric) Status: Acute Assessment and Plan: * Continue home BiPAP (8) Prediabetes: Code(s): R73.03 - Prediabetes Status: Acute Assessment and Plan: * A1c 6.0 * continue home metformin (9) Hypokalemia: Code(s): E87.6 - Hypokalemia Status: Acute Assessment and Plan: * likely secondary to decreased p.o. intake /GI issues * Potassium was monitored and supplemented * Levels normalized prior to discharge DS: Summary Hospital Course Hospital Course: date of admission: 07/27/2022 date of discharge: 08/05/2022 Osvaldo Zimmerman is a 67-year-old male with a history of MARCELLA, hyperlipidemia, GERD, BPH, hypertension, and prediabetes who presented to the emergency department on 07/27/2022 with complaints of right upper quadrant pain ongoing for 2 days with associa
--- NOTE | 2022-08-05 14:35 | PM.DS ---
DS: Admitting Diagnosis Discharge Date 08/05/2022 Admitting Diagnosis choledocholithiasis DS: Discharge Diagnosis Discharge Diagnosis (1) Duodenal perforation: Code(s): K63.1 - Perforation of intestine (nontraumatic) Status: Acute Assessment and Plan: Noted after ERCP Patient evaluated by general surgery and Gastroenterology. CT indicated persistent leak/ perforation of the descending duodenum Gastrografin upper GI completed which showed duodenitis with perforation patient started on TPN and bowel rest with improvement diet was slowly advanced and patient able to tolerate diabetic diet received IV Levaquin and Flagyl during admission (2) Choledocholithiasis: Code(s): K80.50 - Calculus of bile duct without cholangitis or cholecystitis without obstruction Status: Acute Assessment and Plan: Presented with ongoing epigastric pain for couple of days with associated fever, nausea, and decreased appetite Seen in consultation by Gastroenterology ERCP 07/28/22 removed stone and sludge repeat ERCP on 07/30/2022 revealed choledocholithiasis and stone was extracted (3) Transaminitis: Code(s): R74.01 - Elevation of levels of liver transaminase levels Status: Acute Assessment and Plan: felt to be secondary to choledocholithiasis patient had rising LFTs, therefore ERCP repeated with subsequent stone extraction LFTs trended down following this and were near normal at time of discharge with total bilirubin within normal limits (4) UTI (urinary tract infection): Code(s): N39.0 - Urinary tract infection, site not specified Status: Acute Assessment and Plan: UA abnormal on presentation Urine culture with growth of [id number] CFU Enterococcus patient was asymptomatic and do not suspect this to be acute infection, however was treated with Levaquin for above issues which was susceptible based on culture result (5) Hyperlipidemia: Qualifiers: Hyperlipidemia type: unspecified Qualified Code(s): E78.5 - Hyperlipidemia, unspecified Code(s): E78.5 - Hyperlipidemia, unspecified Status: Acute Assessment and Plan: Atorvastatin held due to transaminitis, however resumed on discharge with normalization of LFTs (6) Gastroesophageal reflux disease: Code(s): K21.9 - Gastro-esophageal reflux disease without esophagitis Status: Acute Assessment and Plan: continue home omeprazole (7) Obstructive sleep apnea treated with BiPAP: Code(s): G47.33 - Obstructive sleep apnea (adult) (pediatric) Status: Acute Assessment and Plan: Continue home BiPAP (8) Prediabetes: Code(s): R73.03 - Prediabetes Status: Acute Assessment and Plan: A1c 6.0 continue home metformin (9) Hypokalemia: Code(s): E87.6 - Hypokalemia Status: Acute Assessment and Plan: likely secondary to decreased p.o. intake /GI issues Potassium was monitored and supplemented Levels normalized prior to discharge DS: Summary Hospital Course Hospital Course: date of admission: 07/27/2022 date of discharge: 08/05/2022 Osvaldo Zmimerman is a 67-year-old male with a history of MARCELLA, hyperlipidemia, GERD, BPH, hypertension, and prediabetes who presented to the emergency department on 07/27/2022 with complaints of right upper quadrant pain ongoing for 2 days with associated fever and nausea. On presentation to the ED, his vital signs are stable, he was afebrile, CMP revealed elevated liver enzymes, urinalysis was abnormal, CT of the abdomen/ pelvis showed no acute intra-abdominal or pelvic process. He was admitted to the hospitalist service for further evaluation and management was seen in consultation by General surgery and Gastroenterology. Please see above for further details. Following antibiotic therapy, bowel rest, supportive care, patient was feeling
[2022-08-05 14:50] VITALS: BP 150/76; PULSE 88; RESP 16; TEMP 36.4; O2SAT 96
== END 2022-08-05 17:50 | disposition home or self-care (01) | DRG 444 ==
LOC: ANHED 16:06 → ANH3MEDSUR 17:35
PROVIDERS: Emergency Medicine; Internal Medicine Gastroenterology; Nurse Practitioner; Nurse Practitioner Family; Physician Assistant; Surgery; Admitting Provider Internal Medicine; Emergency Provider Emergency Medicine; PCP Internal Medicine; Visit Provider Physician Assistant
PROC: 0FC98ZZ Extirpation of Matter from Common Bile Duct, Via Natural or Artificial Opening Endoscopic (ICD-10-PCS; CPT 43260; principal; 2022-07-28 13:00)
DX: K80.70 Calculus of gallbladder and bile duct without cholecystitis without obstruction (principal); K63.1 Perforation of intestine (nontraumatic); N39.0 Urinary tract infection, site not specified; K21.9 Gastro-esophageal reflux disease without esophagitis; G47.33 Obstructive sleep apnea (adult) (pediatric); R73.03 Prediabetes; I10 Essential (primary) hypertension; E78.2 Mixed hyperlipidemia; K57.10 Diverticulosis of small intestine without perforation or abscess without bleeding; B95.2 Enterococcus as the cause of diseases classified elsewhere; E87.6 Hypokalemia; Z20.822 Contact with and (suspected) exposure to COVID-19; Z82.49 Family history of ischemic heart disease and other diseases of the circulatory system; Z79.84 Long term (current) use of oral hypoglycemic drugs; Z88.0 Allergy status to penicillin
CPT/HCPCS: 36415; 36569; 71045; 74176; 74177; 74240; 74248; 74329; 76705; 80048; 80053; 80076; 80202; 81001; 82948; 83036; 83690; 83735; 84100; 84466; 84478; 84484; 85025; 85027; 85055; 85610; 85730; 86140; 87077; 87086; 87088; 87186; 87636; 93005; 96361; 96365; 96366; 96375; 99285; A9270; C1751; C9113; G0378; J0330; J0360; J1100; J1650; J1741; J1956; J2405; J2704; J3010; J3370; J3480; J7030; J7120; Q9967

== ENCOUNTER 2022-08-29 23:49 | Emergency (ER) | payer MEDICARE, OTHER, SELFPAY ==
--- NOTE | ~2022-08-29 | CT_ITS ---
EXAMINATION: CT abdomen pelvis w con DATE: 08/30/2022 01:41 INDICATION: 5 days of fever with nausea and lower abdominal pain TECHNIQUE: Computed tomography (CT) of the abdomen and pelvis was performed with 100 mL Omnipaque-350 intravenous contrast. Automated exposure control and iterative reconstruction technique were employe d. The dose-length product was 1333.33 mGy-cm. COMPARISON: 08/03/2022 FINDINGS: Mild discoid atelectasis at the lingula. Minimal dependent atelectasis in the right lower lobe. Heart size is normal. Atherosclerotic coronary artery calcific location. No pericardial or pleural effusio n. Mild bilateral gynecomastia. Small sliding-type hiatal hernia. Small amount of pneumobilia in the common bile duct, decompressed gallbladder and left hepatic lobe l ikely related to a recent ERCP with sphincterotomy. 2 x 1 x 2.5 cm peripherally enhancing abscess wit h some surrounding inflammatory stranding along the lateral wall of the second portion the duodenum l ikely related to air. Duodenal perforation occurring at the time of the ERCP. Again seen is mild port acaval lymphadenopathy with a 2.7 x 2.5 cm now likely suppurative lymph node within which has develop ed 1.5 x 1.0 cm region of decreased attenuation. Interval development of a 1 x 1.5 cm region of decre ased attenuation. There are 7 new small low-attenuation lesions in the liver. The largest at the post erior dome measures 3.0 x 2.0 cm with a few enhancing internal septations. The appearance, clinical s etting and rapid development would be most consistent with hepatic abscesses. There is a small amount of nonocclusive thrombus in the main portal vein. Spleen, pancreas, bilateral adrenal glands and kidneys are normal. Moderate to large amount stool thr oughout the colon. The remainder of the small bowel is normal with no obstruction. Normal appendix. B ladder is normal. Mild prostatomegaly. No free intraperitoneal gas or fluid. Moderate lumbar and lowe r thoracic spondylosis. Chronic osteonecrosis at the bilateral femoral heads, right greater than left . IMPRESSION: 1. Interval development of 2 x 1 x 2.5 cm abscess along the second portion of the duodenum, an adjace nt suppurative portacaval lymph node and multiple small intrahepatic abscesses, the largest measuring 3 x 2 cm in the posterior dome of liver and small amount of pneumobilia, likely related to recent ch est CT, sphincterotomy and iatrogenic duodenal perforation. 2. Small amount of nonocclusive thrombus in the main portal vein. Reviewed, dictated and finalized at location A. ING MECHANIC IMPRESSION: 1. Interval development of 2 x 1 x 2.5 cm abscess along the second portion of t he duodenum, an adjacent suppurative portacaval lymph node and multiple small i ntrahepatic abscesses, the largest measuring 3 x 2 cm in the posterior dome of liver and small amount of pneumobilia, likely related to recent chest CT, sphin cterotomy and iatrogenic duodenal perforation. 2. Small amount of nonocclusive thrombus in the main portal vein.
--- NOTE | ~2022-08-29 | XR_ITS ---
EXAMINATION: XR chest 2V DATE: 08/30/2022 00:33 INDICATION: Cough and fever TECHNIQUE: PA and lateral views of the chest were obtained. COMPARISON: Chest radiograph dated 07/30/22 FINDINGS: Unchanged minimal linear discoid atelectasis at the lingula. No new airspace opacities, pulmonary carlene ma, pleural effusion or pneumothorax. The cardiomediastinal silhouette is normal. Plate and screw fix ation for lower cervical anterior spinal fusion. Mild thoracic spondylosis. IMPRESSION: 1. Unchanged minimal lingular atelectasis/scarring. No acute cardiopulmonary disease. Reviewed, dictated and finalized at location A. [employer] QC IMPRESSION: 1. Unchanged minimal lingular atelectasis/scarring. No acute cardiopulmonary di sease.
[2022-08-29 23:52] VITALS: BP 148/81; PULSE 129; RESP 22; TEMP 36.7; O2SAT 97
[2022-08-30] VITALS (55 sets, daily range): BP systolic 100–180; BP diastolic 58–93; PULSE 89–124; RESP 15–26; TEMP 37.1–38.9; O2SAT 96–100
--- NOTE | 2022-08-30 00:09 | ED.FEVER ---
HPI - Fever General Chief Complaint: Fever Stated Complaint: fever Time Seen by Provider: 08/29/22 23:59 History of Present Illness HPI Narrative: This is a 67-year-old male with past medical history of hypertension, diabetes, choledocholithiasis, who presented to the emergency department complaining of fever for the past 5 days. This is associated with nonproductive cough and diffuse myalgias. He denies any known sick contacts and states he has had decreased appetite and but denies vomiting or diarrhea. He reports the highest temperature at home at 104. Related Data Home Medications Medication Instructions Recorded Confirmed calcium carbonate 600 mg calcium 600 mg PO DAILY 07/19/19 08/25/22 (1,500 mg) tablet (Calcium) ipratropium bromide 21 mcg (0.03 2 spray intranasal BID 07/19/19 08/25/22 %) nasal spray krill 1,000 mg-omega-3 170 mg-dha 1 cap PO DAILY 07/19/19 08/25/22 50 mg-epa 80 bc-uxahxg-rpozi capsule (krill oil) montelukast 10 mg tablet 10 mg PO DAILY 07/19/19 08/25/22 (Singulair) saw palmetto 160 mg capsule 160 mg PO DAILY 07/19/19 08/25/22 omeprazole 20 mg capsule,delayed 40 mg PO DAILY 07/20/19 08/25/22 release naproxen sodium 220 mg capsule 220 mg PO DAILY 01/31/20 08/25/22 famotidine 20 mg tablet 20 mg PO DAILY 07/22/20 08/25/22 fexofenadine 180 mg tablet 180 mg PO DAILY 04/18/21 08/25/22 amlodipine 5 mg tablet 5 mg PO DAILY 07/27/22 08/25/22 atorvastatin 20 mg tablet 20 mg DAILY 07/27/22 08/25/22 metaxalone 800 mg tablet 200 mg DAILY PRN Muscle Spasm 07/27/22 08/25/22 Allergies Allergy/AdvReac Type Severity Reaction Status Date / Time Penicillins Allergy Mild pt does Verified 08/29/22 23:56 not recall Review of Systems Review of Systems: CONSTITUTIONAL: Fevers and chills denies sweats. EYES: Denies visual changes, redness, or discharge. ENT: Congestion and sore throat denies rhinorrhea or otalgia. CARDIOVASCULAR: Denies chest pain, palpitations, or edema. RESPIRATORY: Nonproductive cough denies dyspnea. GASTROINTESTINAL: Occasional abdominal cramping denies nausea, vomiting, or diarrhea. GENITOURINARY: Denies dysuria or hematuria. SKIN: Denies rash or itching. MUSCULOSKELETAL: Myalgias denies back pain, joint pain NEUROLOGIC: Denies headache, numbness, dizziness, or weakness. PSYCHIATRIC: Denies anxiety or depression. [facility] Past Medical History Medical History Benign essential hypertension Benign prostatic hyperplasia Gastroesophageal reflux disease Mixed hyperlipidemia Obstructive sleep apnea treated with BiPAP Prediabetes Surgical History Surgical History History of cataract extraction History of cervical spinal surgery History of colonoscopy with polypectomy History of skin graft Family History Family History Sibling Family history of suicide, Onset Age: 25 Patient's brother is Father Cerebrovascular accident Patient's father is Mother Family history of chronic obstructive pulmonary disease Patient's mother is Other Diabetes mellitus Family history of arthritis Family history of cardiovascular disease Hypertension Social History Social History Social History: Surrogate medical decision maker: Jaswinder Matos, partner. Code status: Full code. Smoking status: Never smoker Second hand tobacco smoke exposure: Yes (when he was younger) Alcohol intake: current Drinks per week: 1 Alcohol use details: Social Substance use: never Substance use type: does not use Lack of Transportation: No Lack of Food: Never True Current Housing: I Have Housing Concerned About Future Housing: No Difficulty Paying Gas/Electric Bills: No Difficulty Paying for Meds: No Currentl
[2022-08-30] MEDS: SODIUM CHLORIDE 0.9% IV 1,000 ML 999 ML IV CONT ×2 (00:21→04:42)
[2022-08-30 00:22] LABS: Basophils Absolute Auto 0.1 K/mm3 (0.0-0.1); Basophils Percent Auto 0.2 % (0.2-1.2); Hematocrit 39.3 % (42.0-52.0); Hemoglobin 13.6 g/dL (14.0-18.0); Immature Granulocyte Absolute 0.15 K/mm3 (0.00-0.031); Immature Granulocyte Percent A 0.6 % (0-0.5); Lymphocytes Percent Auto 4.3 % (18.3-44.2); Mean Corpuscular HGB Conc 34.6 g/dl (32-36); Mean Corpuscular Hemoglobin 32.9 pg (26-34); Mean Corpuscular Volume 95.2 fl (80-100); Mean Platelet Volume 9.7 fl (7.4-10.4); Monocytes Percent Auto 7.7 % (2.6-8.5); Neutrophils Absolute Auto 22.5 K/mm3 (1.3-6.7); Neutrophils Percent Auto 87.2 % (45.5-73.1); Platelet Count Result 181 k/mm3 (150-375); Red Blood Count 4.13 M/mm3 (4.6-6.20); White Blood Count 25.8 K/mm3 (4.5-10.0)
--- NOTE | 2022-08-30 00:22 | PC.NURSE ---
Patient attempted to provide a urine specimen, unsuccessful.
--- NOTE | 2022-08-30 00:28 | PC.NURSE ---
Patient taken to xray via stretcher at this time.
[2022-08-30 00:44] LABS: Strep Group A RT-PCR NOT DETECTED (Negative)
[2022-08-30 00:53] LABS: Alanine Aminotransferase 110 U/L (6-50); Albumin Level 4.3 g/dL (3.5-5.1); Alkaline Phosphatase 125 U/L (38-126); Anion Gap 11 mmol/L (8-16); Aspartate Amino Transferase 80 U/L (17-59); Bilirubin,Total 1.3 mg/dL (0.2-1.3); Blood Urea Nitrogen 21 mg/dL (9-20); Carbon Dioxide 22 mmol/L (22-30); Chloride 100 mmol/L (98-107); Estimated CRCL calculation 106 ml/min; Estimated Glomerular Filt Rate > 60; Glucose 188 mg/dL (65-110); Potassium 3.5 mmol/L (3.4-5.0); Sodium 133 mmol/L (137-145)
[2022-08-30 00:56] LABS: Influenza A QL RT-PCR Negative (Negative); Influenza B QL RT-PCR Negative (Negative); SARS-CoV-2 RNA PCR Negative
[2022-08-30 01:16] LABS: Lactic Acid Reflex 1.4 mmol/L (0.7-2.0)
--- NOTE | 2022-08-30 01:27 | PC.NURSE ---
Patient taken to CT via stretcher at this time.
[2022-08-30 02:11] LABS: Appearance Urine Clear (Clear); Bilirubin Urine Negative (Negative); Blood Urine Trace-intact (Negative); Color Urine Yellow (Yellow); Glucose Urine UA Negative (Negative); Ketones Urine Negative (Negative); Leukocyte Esterase Ur Negative LEU/UL (Negative); Nitrate Urine Negative (Negative); Protein Urine 1+ mg/dL (Negative); Specific Grav Ur <= 1.005 (1.001-1.035); Urobilinogen Urine 0.2 mg/dL (<2.0); pH Urine 6.5 (5.0-9.0)
[2022-08-30 02:16] LABS: Bacteria Urine Trace /hpf; Mucus Urine Rare /lpf; RBC Urine 0-2 /hpf (0-2); WBC Urine 0-3 /hpf
[2022-08-30 02:19] LABS: Add Urine Microscopic? YES
[2022-08-30] MEDS: metroNIDAZOLE 500 MG/ISO 100ML 500 MG/100 ML BAG 100 MG IVPB ×3 (03:17→22:57)
--- NOTE | 2022-08-30 04:49 | PC.NURSE ---
4137 Lisseth from [facility] transfer center calls to get triage info. She states she will call back when a bed becomes available.
[2022-08-30] MEDS: SODIUM CHLORIDE 0.9% IV 1,000 ML 150 ML IV CONT (05:32)
--- NOTE | 2022-08-30 06:23 | PC.NURSE ---
0620 Called [facility] transfer center to get update on bed status, she stated no update yet, but will be in contact when one becomes available.
--- NOTE | 2022-08-30 07:20 | PC.NURSE ---
assumed care of pt. pt resting on stretcher, family member at bedside. pt denies complaints at this time
--- NOTE | 2022-08-30 12:34 | PC.NURSE ---
1226 bed status check at [facility] - No Bed will keep us posted remain on wait list
--- NOTE | 2022-08-30 13:40 | PC.NURSE ---
pt requesting lunch. spoke with dr ruano who stated pt was to be npo. pt updated
--- NOTE | 2022-08-30 13:50 | PC.NURSE ---
Sherry from [facility] called for pt update. Informed of most recent vitals. Sherry states no beds available at this time. will call back when they have placement
--- NOTE | 2022-08-30 18:33 | PC.NURSE ---
bed status check at [place] - no bed remains on wait list
[2022-08-30] MEDS: BENZONATATE 100 MG CAPSULE 200 MG PO (19:31)
[2022-08-31] VITALS (8 sets, daily range): BP systolic 107–155; BP diastolic 71–86; PULSE 98–103; RESP 14–20; TEMP 37.3–38.9; O2SAT 97–100
[2022-08-31] MEDS: SODIUM CHLORIDE 0.9% IV 1,000 ML 100 ML IV CONT (04:07)
[2022-08-31] MEDS: metroNIDAZOLE 500 MG/ISO 100ML 500 MG/100 ML BAG 100 MG IVPB (06:07)
--- NOTE | 2022-08-31 09:11 | PC.NURSE ---
0902 [facility]-still no beds remains on wait list Checking [facility]
--- NOTE | 2022-08-31 09:30 | PC.NURSE ---
[facility] - contacted for possible bed placement
--- NOTE | 2022-08-31 12:19 | PC.NURSE ---
received bed at [facility] 317
--- NOTE | 2022-08-31 12:24 | PC.NURSE ---
[facility] accepted transfer to [facility] 13:30
== END 2022-08-31 13:58 ==
PROVIDERS: Emergency Provider Preventive Medicine Aerospace Medicine; PCP Internal Medicine
DX: A41.9 Sepsis, unspecified organism (principal); K63.0 Abscess of intestine; K75.0 Abscess of liver; R00.0 Tachycardia, unspecified; Z20.822 Contact with and (suspected) exposure to COVID-19; I10 Essential (primary) hypertension; E78.2 Mixed hyperlipidemia; E11.9 Type 2 diabetes mellitus without complications; N40.0 Benign prostatic hyperplasia without lower urinary tract symptoms; G47.33 Obstructive sleep apnea (adult) (pediatric); K21.9 Gastro-esophageal reflux disease without esophagitis; Z98.49 Cataract extraction status, unspecified eye; Z77.22 Contact with and (suspected) exposure to environmental tobacco smoke (acute) (chronic); Z79.84 Long term (current) use of oral hypoglycemic drugs
CPT/HCPCS: 36415; 71046; 74177; 80053; 81001; 83605; 85025; 87040; 87077; 87186; 87636; 87651; 96361; 96365; 96366; 96367; 99285; A9270; J0131; J0692; J7030; Q9967

== ENCOUNTER 2024-04-21 12:32 | Outpatient (CLI) | payer MEDICARE, OTHER, SELFPAY ==
--- NOTE | ~2024-04-21 | XR_ITS ---
AP and lateral views of the bilateral hips Clinical history: Pain Findings: No acute fracture or dislocation is seen. Osseous alignment is anatomic. There is mild dege nerative change of both hip joints. Soft tissues are unremarkable. Impression: Mild degenerative change of both hip joints. Reviewed, dictated and finalized at location . Impression: Mild degenerative change of both hip joints.
== END 2024-04-21 12:33 | disposition home or self-care (01) ==
LOC: ANHIMG 12:35
PROVIDERS: PCP Family Medicine; Visit Provider Family Medicine
DX: M16.0 Bilateral primary osteoarthritis of hip (principal); G62.9 Polyneuropathy, unspecified
CPT/HCPCS: 73521

== ENCOUNTER 2024-05-11 07:20 | Outpatient (CLI) | payer MEDICARE, OTHER, SELFPAY ==
--- NOTE | ~2024-05-11 | US_ITS ---
Limited abdominal ultrasound Ordering provider: ELLY Rice History: . K80.70 - Calculus of gallbladder and bile duct without ch... . Comparison: None. FINDINGS: LIVER: Normal size with increased echogenicity echotexture. Areas of fat sparing are noted. No focal hepatic lesions or perihepatic fluid collections are identified. Portal vein flow is normal. GALLBLADDER: Multiple echogenic foci the largest seen in the area of the fundus which may be a stone. The smaller 1's are most likely cholesterol crystals foci Follow-up advised. No evidence for sludge, gallbladder wall thickening or pericholecystic fluid collections. A negative sonographic Mata's sign was noted. BILIARY DUCTS: No evidence for intra or extrahepatic biliary dilation. Common bile duct measures 2.8 mm in diameter which is within normal limits. PANCREAS: Partially demonstrated. UPPER ABDOMINAL AORTA: Normal in caliber. IVC: Patent. FREE FLUID: None. IMPRESSION: Cholelithiasis. No evidence of cholecystitis. Cholesterol crystals foci in the gallbladder. Follow-up advised. Fat infiltration of the liver. Areas of fat sparing are seen in the liver. Reviewed, dictated and finalized at location A.
== END 2024-05-11 07:21 | disposition home or self-care (01) ==
PROVIDERS: PCP Family Medicine; Visit Provider Nurse Practitioner Family
DX: K80.70 Calculus of gallbladder and bile duct without cholecystitis without obstruction (principal); R93.89 Abnormal findings on diagnostic imaging of other specified body structures; K76.0 Fatty (change of) liver, not elsewhere classified
CPT/HCPCS: 76705

== ENCOUNTER 2024-05-21 14:50 | Emergency (ER) | payer MEDICARE, OTHER, SELFPAY ==
[2024-05-21 15:02] VITALS: BP 153/84; PULSE 98; RESP 16; TEMP 36.8; O2SAT 98
--- NOTE | 2024-05-21 15:29 | ED.GENADULT ---
HPI - General Adult General Chief complaint: Upper Respiratory Infection Stated complaint: + COVID/FEVER Source: patient Mode of arrival: ambulatory Limitations: no limitations History of Present Illness HPI narrative: Patient presents requesting a prescription for Paxlovid. He tested positive for COVID today. Three of his family members also recently tested positive. He reports sinus congestion, fatigue, mild cough, fever and abdominal fullness . He denies nausea, vomiting, diarrhea. He had COVID in the past and took Paxlovid without any difficulty. He took Aleve for his symptoms. Related Data Home Medications Medication Instructions Recorded Confirmed calcium carbonate (Calcium 600) 600 mg PO DAILY 07/19/19 05/21/24 krill 1,000 mg-omega-3 170 mg-dha 1 cap PO DAILY 07/19/19 05/21/24 50 mg-epa 80 un-zhdvje-nduwe capsule (krill oil) saw palmetto 160 mg capsule 160 mg PO DAILY 07/19/19 05/21/24 omeprazole 20 mg capsule,delayed 40 mg PO DAILY 07/20/19 05/21/24 release famotidine 20 mg tablet 20 mg PO DAILY 07/22/20 05/21/24 fexofenadine 180 mg tablet 180 mg PO DAILY 04/18/21 05/21/24 Allergies Allergy/AdvReac Type Severity Reaction Status Date / Time Penicillins Allergy Mild pt does Verified 05/21/24 15:01 not recall Review of Systems Review of Systems: CONSTITUTIONAL: Reports fever and fatigue. Denies chills, or sweats. EYES: Denies visual changes, redness, or discharge. ENT: Reports sinus congestion. Denies sore throat. CARDIOVASCULAR: Denies chest pain, palpitations, or edema. RESPIRATORY: Reports cough. Denies shortness of breath. GASTROINTESTINAL: Reports abdominal fullness . Denies abdominal pain, nausea, vomiting, or diarrhea. GENITOURINARY: Denies dysuria or hematuria. SKIN: Denies rash or itching. MUSCULOSKELETAL: Denies back pain, joint pain, or myalgia. NEUROLOGIC: Denies headache, numbness, dizziness, or weakness. PSYCHIATRIC: Denies anxiety or depression. [facility] Past Medical History Medical History Benign essential hypertension Benign prostatic hyperplasia Gastroesophageal reflux disease Mixed hyperlipidemia Obstructive sleep apnea treated with BiPAP Prediabetes Surgical History Surgical History History of cataract extraction History of cervical spinal surgery History of cholecystectomy History of colonoscopy with polypectomy History of hand surgery History of skin graft Family History Family History Sibling Family history of suicide, Onset Age: 25 Patient's brother is Father Cerebrovascular accident Patient's father is Mother Family history of chronic obstructive pulmonary disease Patient's mother is Other Diabetes mellitus Family history of arthritis Family history of cardiovascular disease Hypertension Social History Social History Social History: Surrogate medical decision maker: Maribelnadirakoko Carlo, partner. Code status: Full code. Smoking status: Never smoker Second hand tobacco smoke exposure: Yes (when he was younger) Alcohol intake: current Alcohol use details: occasionally Substance use: never Substance use type: does not use Lack of Transportation: No Lack of Food: Never True Current Housing: I Have Housing Concerned About Future Housing: No Difficulty Paying Gas/Electric Bills: No Difficulty Paying for Meds: No Currently Unemployed: No Education: Bachelor's Degree Difficulty w/ Childcare or Family Care: No Living arrangements: with family Occupation/Education: retired Spiritual care concerns: No Exam Narrative: GENERAL: Well-appearing, well-nourished, and in no acute distress. HEAD: Normocephalic,
== END 2024-05-21 15:39 | disposition home or self-care (01) ==
PROVIDERS: Emergency Provider Nurse Practitioner; PCP Family Medicine
DX: U07.1 COVID-19 (principal); I10 Essential (primary) hypertension; N40.0 Benign prostatic hyperplasia without lower urinary tract symptoms; K21.9 Gastro-esophageal reflux disease without esophagitis; E78.2 Mixed hyperlipidemia; G47.30 Sleep apnea, unspecified; R73.03 Prediabetes
CPT/HCPCS: 99213; G0463

== ENCOUNTER 2024-05-31 06:52 | Outpatient (CLI) | payer MEDICARE, OTHER, SELFPAY ==
--- NOTE | ~2024-05-31 | CT_ITS ---
CT of the Abdomen and Pelvis: Indication: History of perforated duodenal ulcer Technique: 2.5 mm axial scans were obtained through the abdomen and pelvis following intravenous adm inistration of 100 cc of Omnipaque 350. Dose reduction technique was used on this scan by utilizing a utomated exposure control and iterative reconstruction technique. The dose-length product (DLP) was 1 423.88 mGy-cm. COMPARISON: 08/30/2022 Findings: Scans through the lung bases are unremarkable. The liver, spleen, pancreas, gallbladder, adrenals and kidneys are within normal limits. There are at herosclerotic calcifications of the aorta. No lymphadenopathy. No bowel obstruction. Questionable minimal wall thickening of the gastric antrum/proximal duodenum. N o free air or abscess.. Images through the pelvis were performed. Urinary bladder unremarkable. No pelvic mass seen. No ascit es. Impression: Questionable mild wall thickening gastric antrum/proximal duodenum. Correlate for gastritis/duodeniti s or peptic ulcers disease. No evidence of perforation. Reviewed, dictated and finalized at location M. Impression: Questionable mild wall thickening gastric antrum/proximal duodenum. Correlate f or gastritis/duodenitis or peptic ulcers disease. No evidence of perforation.
== END 2024-05-31 06:53 | disposition home or self-care (01) ==
PROVIDERS: PCP Family Medicine; Visit Provider Surgery
DX: R10.13 Epigastric pain (principal); Z87.19 Personal history of other diseases of the digestive system
CPT/HCPCS: 74177; Q9967

== ENCOUNTER 2024-06-15 09:11 | Outpatient (CLI) | payer MEDICARE, OTHER, SELFPAY ==
--- NOTE | ~2024-06-15 | US_ITS ---
EXAMINATION: US arterial ankle brachial ind DATE: 06/15/2024 10:01 INDICATION: Peripheral vascular disease, unspecified. TECHNIQUE: Segmental pressures and plethysmographic and Doppler waveforms of the brachial and lower e xtremity arteries were obtained. COMPARISON: None. FINDINGS: Right and left brachial artery pressures of 124 mm Hg and 128 mm Hg, respectively, are concordant (no rmal difference <= 30 mmHg). The right ankle-brachial index (EMMY) is 1.32 (normal >= 0.9-1.0). The right great toe-brachial index (TBI) is 0.98 (normal >= 0.65). Arterial Doppler waveforms are biphasic at the ankle. The left EMMY is 1.30. The left TBI is 1.13. Arterial Doppler waveforms are biphasic at the ankle. IMPRESSION: 1. No significant arterial occlusive disease. Reviewed, dictated and finalized at location B.
== END 2024-06-15 09:12 | disposition home or self-care (01) ==
PROVIDERS: PCP Family Medicine; Visit Provider Family Medicine
DX: I73.9 Peripheral vascular disease, unspecified (principal)
CPT/HCPCS: 93922

== ENCOUNTER 2024-06-30 13:14 | Outpatient (CLI) | payer MEDICARE, OTHER, SELFPAY ==
--- NOTE | 2024-06-30 13:28 | ECG_ITS ---
Test Date: 2024-06-30 13:40:33 Measurements Intervals [place] Rate: 68 P: 59 NC: 174 QRS: -47 QRSD: 87 T: 60 QT: 395 QTc: 422 Interpretive Statements SINUS RHYTHM CANNOT R/O SEPTAL INFARCT, AGE INDETERMINATE BASELINE ARTIFACT- I, II, III, AVR, AVL ,AVF, V4-V6 ABNORMAL ECG No previous ECG available for comparison Electronically Signed On 06-30-2024 13:50:39 RESIDENT CAREGIVER by Kyler Cuellar D.O.
[2024-06-30 14:03] LABS: Anion Gap 8 mmol/L (4-12); Blood Urea Nitrogen 15 mg/dL (9-20); Calcium 9.4 mg/dL (8.4-10.2); Carbon Dioxide 27 mmol/L (22-30); Chloride 106 mmol/L (98-107); Estimated Glomerular Filt Rate > 60; Glucose 121 mg/dL (65-110); Potassium 4.5 mmol/L (3.4-5.0); Sodium 141 mmol/L (137-145)
[2024-06-30 14:05] LABS: Alanine Aminotransferase 64 U/L (6-50); Albumin Level 4.5 g/dL (3.5-5.1); Alkaline Phosphatase 57 U/L (38-126); Amylase 62 U/L (30-110); Aspartate Amino Transferase 38 U/L (17-59); Bilirubin,Total 0.8 mg/dL (0.2-1.3); Lipase 44 U/L (23-300)
== END 2024-06-30 13:15 | disposition home or self-care (01) ==
LOC: ANHSURGERY 13:22
PROVIDERS: Anesthesiology; PCP Family Medicine; Visit Provider Surgery
DX: Z01.818 Encounter for other preprocedural examination (principal); E78.5 Hyperlipidemia, unspecified; I10 Essential (primary) hypertension; E11.9 Type 2 diabetes mellitus without complications; K80.20 Calculus of gallbladder without cholecystitis without obstruction
CPT/HCPCS: 36415; 80048; 80076; 82150; 83690; 93005

== ENCOUNTER 2024-07-07 00:58 | Day surgery (SDC) | payer MEDICARE, OTHER, SELFPAY ==
[2024-06-29 09:11] VITALS: BMI 33.3
--- NOTE | 2024-06-29 09:28 | PC.NURSE ---
Report to the Outpatient Waiting Room, entrance under the green pavilion located off [facility], at time _07:30am on date __07/07/24 . Planned Procedure Time: _09:30am .? Time changes happen often and if your time is changed the preop area will call you the afternoon before. - You and your visitor will be asked to self-screen and do not enter if you have any COVID symptoms. Please call surgeon if you need to reschedule. - A mask is optional within the hospital at this time. Patients may have clear liquids (water, carbonated beverages, clear teas, apple juice) until 3 hours prior to surgery with a maximum of 20 ounces. - No food from midnight until time of surgery and no smoking (06:30am) Take only the following medications with a SIP of water on the morning of surgery: ____[place] DO NOT STOP ANY OF YOUR OTHER PRESCRIPTION MEDICATIONS PRIOR TO SURGERY EXCEPT THE FOLLOWING Medications to discontinue per physician Hold All Vitamins and supplements 3 days prior to surgery per Anesthesia Date to take last dose__07/03/24 Please no make-up, nail nigerian, hairspray, perfume, deodorant, or body powder the day of surgery.? No jewelry (including any body piercings) or valuables the day of surgery, leave them at home.? Please take a shower or bath the night before, or the morning of, surgery with an antibacterial soap.? Wear comfortable, loose fitting clothing.? - Jewelry must be removed prior to entering the operating room.? Rings and piercings that are not removed may be cut off. - The hospital will not accept responsibility for valuables.? - Please leave all valuables, including medications, at home the day of surgery. If you are going home after surgery, a licensed escort vehicle driver must drive you home.? - NO public transportation without another adult if you receive anesthesia. - We recommend that an adult stay with you for 24 hours following discharge. - We also recommend that you do not drive, make important decision, drink alcoholic beverages, or take any drugs that were not prescribed by your health care provider for at least 24 hours after your discharge time. Follow any additional instructions given to you from your surgeon. Telephone instructions given to ___Patient and asked if any additional questions and then verbalized understanding. Patient advised to call surgeon office or pre surgery nurse liaison [phone] if any additional questions.
[2024-07-07] VITALS (7 sets, daily range): BP systolic 115–178; BP diastolic 64–79; PULSE 68–114; RESP 12–20; TEMP 36.3–36.4; O2SAT 97–100
[2024-07-07] MEDS: ACETAMINOPHEN 500 MG TABLET 1000 MG PO (08:00)
[2024-07-07] MEDS: LACTATED RINGERS 1,000 ML 30 ML IV CONT (08:05)
--- NOTE | 2024-07-07 08:07 | P.PNAN_ITS ---
Anes - Initial Pre Proc Eval Procedure: Operation Date: 07/07/24 09:30 Proposed Procedures p Laparoscopic Cholecystectomy, Possible Open - Navarro Champion MD Date/Time: 07/07/24 08:07 Surgeon: Navarro Champion MD Pre Op Diagnosis: symp cholelithiasis Patient Data Age: 69 Gender: M Height: 1.91 m Weight: 122.1 kg Allergies Allergy/AdvReac Type Severity Reaction Status Date / Time Penicillins Allergy Intermediate Hives Verified 06/29/24 09:07 Home Medications Medication Instructions Recorded Confirmed Type calcium carbonate (Calcium 600) 600 mg PO DAILY 07/19/19 06/29/24 History krill 1,000 mg-omega-3 170 mg-dha 1 cap PO DAILY 07/19/19 06/29/24 History 50 mg-epa 80 ni-qmnvah-dnipx capsule (krill oil) saw palmetto 160 mg capsule 160 mg PO DAILY 07/19/19 06/29/24 History omeprazole 20 mg capsule,delayed 40 mg PO DAILY 07/20/19 06/29/24 History release famotidine 20 mg tablet 20 mg PO DAILY 07/22/20 06/29/24 History fexofenadine 180 mg tablet 180 mg PO DAILY 04/18/21 06/29/24 History metaxalone 800 mg tablet See Rx Instructions .Route 01/07/24 06/29/24 Rx .COMPLEX #30 tabs atorvastatin 20 mg tablet 20 mg PO DAILY #90 tabs 02/11/24 06/29/24 Rx gabapentin 100 mg capsule 100 mg PO QHS #90 caps 03/16/24 06/29/24 Rx ipratropium bromide 21 mcg (0.03 2 spray intranasal BID #30 mL 03/28/24 06/29/24 Rx %) nasal spray montelukast 10 mg tablet 10 mg PO DAILY #90 tabs 03/28/24 06/29/24 Rx (Singulair) tumeric 1 tablet BYMOUTH DAILY 06/07/24 06/29/24 History metformin 500 mg tablet 500 mg PO DAILY #90 tabs 06/14/24 06/29/24 Rx chondroitin sulfate-vit C-Mn 400 1 cap PO DAILY 06/29/24 06/29/24 History mg-60 mg-2.5 mg capsule amlodipine 5 mg tablet See Rx Instructions .Route 07/06/24 Rx .COMPLEX #90 tabs Results Review: All pre-operative results and documents have been reviewed as part of the pre- operative evaluation. [facility] Past Medical History Medical History Benign essential hypertension Benign prostatic hyperplasia Gastroesophageal reflux disease Mixed hyperlipidemia Obstructive sleep apnea treated with BiPAP Prediabetes Surgical History Surgical History History of cataract extraction History of cervical spinal surgery History of cholecystectomy History of colonoscopy with polypectomy History of hand surgery History of skin graft Family History Family History Sibling Family history of suicide, Onset Age: 25 Patient's brother is Father Cerebrovascular accident Patient's father is Mother Family history of chronic obstructive pulmonary disease Patient's mother is Other Diabetes mellitus Family history of arthritis Family history of cardiovascular disease Hypertension Social History Social History Social History: Surrogate medical decision maker: Jaswinder Matos, partner. Code status: Full code. Smoking status: Never smoker Second hand tobacco smoke exposure: Yes (when he was younger) Alcohol intake: current Drinks per week: 1 Alcohol use details: occasionally Substance use: never Substance use type: does not use Lack of Transportation: No Lack of Food: Never True Current Housing: I Have Housing Concerned About Future Housing: No Difficulty Paying Gas/Electric Bills: No Difficulty Paying for Meds: No Currently Unemployed: No Education: Bachelor's Degree Difficulty w/ Childcare or Family Care: No Living arrangements: with friend(s) Occupation/Education: retired Spiritual care concerns: No Anes - Eval Final PreProcedure Day of Procedure 07/07/24 08:07 Patient weight: obese Results Review: All pre-operative results and documents have been reviewed as part of the pre- operative evaluation. Informed Consent: The patient's anesthetic plan and its attendant risks and benefits were discussed with the patient/family/POA. Questions were solicited and answers provided to the satisfaction of the patient/family/POA.
[2024-07-07] MEDS: KETOROLAC 15 MG/ML VIAL (*BKC) IV PUSH (08:10)
--- NOTE | 2024-07-07 08:13 | WPDANESEPPF ---
Anes - Initial Pre Proc Eval Procedure: Operation Date: 07/07/24 09:30 Proposed Procedures p Laparoscopic Cholecystectomy, Possible Open - Navarro Champion MD Date/Time: 07/07/24 08:13 Surgeon: Navarro Champion MD Pre Op Diagnosis: symp cholelithiasis Patient Data Age: 69 Gender: M Height: 1.91 m Weight: 122.1 kg Allergies Allergy/AdvReac Type Severity Reaction Status Date / Time Penicillins Allergy Intermediate Hives Verified 06/29/24 09:07 Home Medications Medication Instructions Recorded Confirmed Type calcium carbonate (Calcium 600) 600 mg PO DAILY 07/19/19 06/29/24 History krill 1,000 mg-omega-3 170 mg-dha 1 cap PO DAILY 07/19/19 06/29/24 History 50 mg-epa 80 ph-tjveor-piidn capsule (krill oil) saw palmetto 160 mg capsule 160 mg PO DAILY 07/19/19 06/29/24 History omeprazole 20 mg capsule,delayed 40 mg PO DAILY 07/20/19 06/29/24 History release famotidine 20 mg tablet 20 mg PO DAILY 07/22/20 06/29/24 History fexofenadine 180 mg tablet 180 mg PO DAILY 04/18/21 06/29/24 History metaxalone 800 mg tablet See Rx Instructions .Route 01/07/24 06/29/24 Rx .COMPLEX #30 tabs atorvastatin 20 mg tablet 20 mg PO DAILY #90 tabs 02/11/24 06/29/24 Rx gabapentin 100 mg capsule 100 mg PO QHS #90 caps 03/16/24 06/29/24 Rx ipratropium bromide 21 mcg (0.03 2 spray intranasal BID #30 mL 03/28/24 06/29/24 Rx %) nasal spray montelukast 10 mg tablet 10 mg PO DAILY #90 tabs 03/28/24 06/29/24 Rx (Singulair) tumeric 1 tablet BYMOUTH DAILY 06/07/24 06/29/24 History metformin 500 mg tablet 500 mg PO DAILY #90 tabs 06/14/24 06/29/24 Rx chondroitin sulfate-vit C-Mn 400 1 cap PO DAILY 06/29/24 06/29/24 History mg-60 mg-2.5 mg capsule amlodipine 5 mg tablet See Rx Instructions .Route 07/06/24 Rx .COMPLEX #90 tabs Patient hx anesthesia problems: none Family hx anesthesia problems: none Results Review: All pre-operative results and documents have been reviewed as part of the pre-operative evaluation. [facility] Past Medical History Medical History Benign essential hypertension Benign prostatic hyperplasia Gastroesophageal reflux disease Mixed hyperlipidemia Obstructive sleep apnea treated with BiPAP Prediabetes Surgical History Surgical History History of cataract extraction History of cervical spinal surgery History of cholecystectomy History of colonoscopy with polypectomy History of hand surgery History of skin graft Family History Family History Sibling Family history of suicide, Onset Age: 25 Patient's brother is Father Cerebrovascular accident Patient's father is Mother Family history of chronic obstructive pulmonary disease Patient's mother is Other Diabetes mellitus Family history of arthritis Family history of cardiovascular disease Hypertension Social History Social History Social History: Surrogate medical decision maker: aJswinder Matos, partner. Code status: Full code. Smoking status: Never smoker Second hand tobacco smoke exposure: Yes (when he was younger) Alcohol intake: current Drinks per week: 1 Alcohol use details: occasionally Substance use: never Substance use type: does not use Lack of Transportation: No Lack of Food: Never True Current Housing: I Have Housing Concerned About Future Housing: No Difficulty Paying Gas/Electric Bills: No Difficulty Paying for Meds: No Currently Unemployed: No Education: Bachelor's Degree Difficulty w/ Childcare or Family Care: No Living arrangements: with friend(s) Occupation/Education: retired Spiritual care concerns: No Anes - Eval Final PreProcedure Day of Procedure 07/07/24 08:13 Patient weight: obese Heart: regular rate and rhythm Lungs: clear to auscultation Airway: Mallampati scale class II Neurological: alert and oriented Last oral intake: >/= 8 hours ASA classification: III Emergent: no Anesthetic plan: proceed Anesthesia type and monitoring: general ETT and standard monitoring Results Review: All pre-operative results and documents have been reviewed as part of the pre-operative evaluation. Informed Consent: The patient's anesthetic plan and its attendant risks and benefits were discussed with the patient/family/POA. Questions were solicited and answers provided to the satisfaction of the patient/family/POA.
--- NOTE | 2024-07-07 08:54 | WPDHPUPDATE1 ---
History and Physical Update Update Date/Time: 07/07/24 08:54 History and Physical has been reviewed, including an updated exam of the patient. There are NO changes in the patient's condition. Risks, benefits, and alternatives have been discussed and questions answered. Patient agrees to proceed with procedure.
[2024-07-07] MEDS: ceFAZolin 3 GM/D5W 100 ML 100 ML IVPB (09:07)
[2024-07-07] MEDS: LIDO 1%/EPINEPHRINE 1:100,000 50 ML VIAL 30 ML INFILTRATE (09:32)
[2024-07-07] MEDS: BUPivacaine HCL 0.5% PF 30 ML VIAL INFILTRATE (09:33)
--- NOTE | 2024-07-07 10:40 | W.PM.PROC2 ---
Procedure Note - Detailed Date of Procedure 07/07/24 Pre-op Diagnosis symp cholelithiasis Post-op Diagnosis Other (Chronic cholecystitis secondary to cholelithiasis) Procedure Performed Laparoscopic cholecystectomy Surgeon Navarro Champion MD Anesthesia General Indications Patient is a 69-year-old gentleman who had been having problems with right upper quadrant abdominal pain and nausea with eating. This was back during the COVID pandemic a few years ago. He had imaging that showed he had cholelithiasis. He had choledocholithiasis at time and underwent an ERCP for extraction of the gallstones from the common bile duct. Unfortunately he suffered a duodenal perforation from the procedure and had to be transferred to [facility] in [place]. He did not need further surgical management to fix that problem. He was then going to lost a follow-up for few years but he still had intermittent right upper quadrant pain with eating. It has gotten slightly worse now and he presents now for elective laparoscopic cholecystectomy. Findings The patient had chronic inflammatory changes of his gallbladder. There were adhesions of omentum to the gallbladder wall the gallbladder wall was mildly thickened. Palpation of the gallbladder did not reveal gross gallstones although the gallbladder was not opened to reveal a very small gallstones. No other adhesions were noted within the abdomen. Description of Procedure After informed consent was obtained patient brought to the operating room was placed supine position and general endotracheal anesthesia was administered. The abdomen was then prepped and draped usual sterile fashion. A time-out was then performed correctly identifying the patient as well as procedure to be performed. He was given perioperative IV antibiotics. I then entered the abdomen left upper quadrant utilizing a 5mm Optiview port. Once inside the abdomen insufflated to adequate pneumoperitoneum of 15mmHg of CO2. There were no adhesions of the bowel or omentum to the anterior abdominal wall to obscure my view of the periumbilical region or the upper regions of the abdomen. I then placed a 5mm periumbilical trocar port as well as a 10mm epigastric trocar port and then 2 more 5mm right subcostal trocar ports all under direct visualization. The laparoscopic switched over to the periumbilical trocar port looking to the upper portions of the abdomen I could see the gallbladder was mildly distended with omental adhesions to the fundus of the gallbladder. I was able to hold the gallbladder with laparoscopic grasper at the dome and elevated the gallbladder over the right half liver towards the right shoulder. I then stripped down the omental adhesions off of the fundus of the gallbladder bluntly without much difficulty. The infundibular gallbladder was then exposed I placed a 2nd grasper on the infundibulum and then with lateral traction on the infundibulum I dissected down and stripped the visceral peritoneum off of the infundibular gallbladder to identify the cystic duct. The cystic duct was then dissected out circumferentially. The cystic artery was identified and was dissected out circumferentially as well. The posterior wall the gallbladder at the infundibulum dissected free liver into the critical view was obtained. At this point I then resected the gallbladder off the liver bed utilizing electrocautery. There was spillage of bile out of the area of the clipped cystic duct on the gallbladder due to the clip slipping off. The clip was removed from the abdomen. Once the gallbladder was completely free from the liver is placed into an Endo-Catch bag and removed from the abdomen through the epigastric trocar port site. Sent to pathology for examination. No gallstones were spilled during the procedure. I then irrigated out the right upper quadrant the abdomen the gallbladder fossa copious amounts sterile saline solution. Approximately 2L of saline was used to irrigate the abdomen. I then aspirated the fluid from the right upper quadrant the abdomen from the pelvis. I then removed all the trocar ports under direct visualization and then all port sites were hemostatic. I then allowed the abdomen decompress. Port sites were then irrigated sterile saline solution hemostasis was good. The epigastric 10mm trocar port fascial defect was then closed utilizing 0 Vicryl suture at the fascia. The skin edges in all the port sites were then approximated utilizing a running subcuticular 4-0 Monocryl suture. The incisions were then cleaned and then skin glue was applied. The patient tolerated the procedure well no complications. All sponges, needles, and instrument counts were correct at the end procedure. EBL was _20__cc. The patient was awakened and taken to recovery in stable and satisfactory condition. Implants None Estimated Blood Loss 20 Drains No Packing No Pathology Yes (Gallbladder and contents sent to pathology) Complications No immediate complications Condition Stable Disposition PACU [facility] Billing Surgery - Charge Forward: Surgery Billing
--- NOTE | 2024-07-07 10:57 | SUR.PHASEI ---
Dr. Mirza aware of BG 201. No new orders at this time.
[2024-07-07 11:14] LABS: Glucose Point of Care 201 mg/dl (65-105)
== END 2024-07-07 12:10 | disposition home or self-care (01) ==
PROVIDERS: PCP Family Medicine; Visit Provider Surgery
PROC: 0FT44ZZ Resection of Gallbladder, Percutaneous Endoscopic Approach (ICD-10-PCS; CPT 47562; principal; 2024-07-07 09:30)
DX: K81.1 Chronic cholecystitis (principal); I10 Essential (primary) hypertension; E78.2 Mixed hyperlipidemia; G47.33 Obstructive sleep apnea (adult) (pediatric); R73.03 Prediabetes; K21.9 Gastro-esophageal reflux disease without esophagitis; N40.0 Benign prostatic hyperplasia without lower urinary tract symptoms; Z79.84 Long term (current) use of oral hypoglycemic drugs; E66.9 Obesity, unspecified; Z68.33 Body mass index [BMI] 33.0-33.9, adult
CPT/HCPCS: 47562; 82948; 88304; A9270; J0690; J1100; J1171; J1885; J2003; J2004; J2704; J3010; J7120